=== PATIENT | female | born 1940 | race Caucasian/White ===

== ENCOUNTER 2017-10-30 08:56 | Inpatient (IN) | payer OTHER ==
--- NOTE | 2017-10-30 09:02 | PDOC ---
History of Present Illness - General Chief Complaint: Cold Symptoms Stated Complaint: weak Time Seen by Provider: 10/30/17 09:02 History Source: Patient, EMS (Patient brought in by EMS after feeling weak , feverish and falling down of a small stepstool while arranging Mine decorations yesterday) Exam Limitations: No Limitations - History of Present Illness Timing/Duration: 24 hours Severity: moderate, severe Associated Symptoms: reports: shortness of breath, weakness Past History - Travel Traveled outside of the country in the last 30 days: No Close contact w/someone who was outside of country & ill: No - Past Medical History Allergies/Adverse Reactions: Allergies Allergy/AdvReac Type Severity Reaction Status Date / Time No Known Allergies Allergy Verified 10/30/17 08:59 Home Medications: Ambulatory Orders Enalapril/Hydrochlorothiazide [Vaseretic 10-25 mg Tablet] 1 each PO DAILY HTN: Yes - Surgical History Cholecystectomy: Yes Orthopedic Surgery: Yes (Bilateral hips replaced) - Suicide/Smoking/Psychosocial Hx Smoking History: Never smoked Hx Alcohol Use: No Review of Systems - Review of Systems Able to Perform ROS?: Yes Is the patient limited Slovenian proficient: Yes Constitutional: Yes: See HPI, Fever, Weakness HEENTM: No: Symptoms Reported, See HPI, Eye Pain, Blurred Vision, Tearing, Recent change in vision, Double Vision, Cataracts, Ear Pain, Ocular Prothesis, Ear Discharge, Nose Pain, Nose Congestion, Tinnitus, Nose Bleeding, Hearing Loss , Throat Pain, Throat Swelling, Mouth Pain, Dental Problems, Difficulty Swallowing, Mouth Swelling, Other Respiratory: No: Symptoms reported, See HPI, Cough, Orthopnea, Shortness of Breath, SOB with Exertion, SOB at Rest, Stridor, Wheezing, Productive cough, Hemoptysis, Other Cardiac (ROS): No: Symptoms Reported, See HPI, Chest Pain, Edema, Irregular Heart Rate, Lightheadedness, Palpitations, Syncope, Chest Tightness, Other ABD/GI: No: Symptoms Reported, See HPI, Abdominal Distended, Abd. Pain w/ defecation, Blood Streaked Bowels, Constipated, Diarrhea, Difficulty Swallowing , Nausea, Poor Appetite, Poor Fluid Intake, Rectal Bleeding, Vomiting, Indigestion, Abdominal cramping, Tarry Stools, Other Musculoskeletal: Yes: Symptoms Reported, See HPI, Other (Pain in the groin at passive and active motion of left leg) Integumentary: No: Symptoms Reported, See HPI, Bruising, Change in Color, Change in Hair/Nails, Dryness, Erythema, Flushing, Lesions, Lumps, Pallor, Pruritus, Rash, Sweating, Other Psychiatric: No: Anxiety, Depression, Frequent Crying, Stressors, Sleep Pattern Change, Emotional Problems, Mood Swings, Change in Appetite, Other Endocrine: No: Symptoms Reported, See HPI, Excessive Sweating, Flushing, Intolerance to Cold, Intolerance to Heat, Increased Hunger, Increased Thirst, Increased Urine, Unexplained Weight Gain, Unexplained Weight Loss, Change in Weight, Other All Other Systems: Reviewed and Negative *Physical Exam - Physical Exam General Appearance: Yes: Nourished, Appropriately Dressed, Moderate Distress, Thin HEENT: positive: [place] Neck: positive: Trachea midline, Supple Respiratory/Chest: positive: Lungs Clear Cardiovascular: positive: Regular Rhythm Gastrointestinal/Abdominal: positive: Normal Bowel Sounds, Soft Lymphatic: negative: Adenopathy Extremity: positive: Normal Capillary Refill, Other (Extreme tenderness at attempts of rotating , elevating right hip) Integumentary: positive: Normal Color Neurologic: positive: Fully Oriented, Alert, Normal Mood/Affect Heart Score/ECG Review - Electrocardiogram EKG: Non specific repolarization disturbance - Age Age: >/= 65 - Risk Factors Risk Factors Heart Score: Yes Hx Hypertension Based on the list above the patient has:: 1-2 risk factors - ECG Intrepretation Rhythm: Regular Rhythm - Stilwell Stilwell: Normal - P and DC Prominent R with upright T in V1 (true posterior FL): No Delta Wave(s) Present: No WPW: No ED Treatment Course - LABORATORY CBC & Chemistry Diagram: 10/30/17 09:10 10/30/17 09:10 Medical Decision Making - Critical Care Time Total Critical Care Time (minutes): 30 Critical Care Statement: The care of this patient involved high complexity decision making to prevent further life threatening deterioration of the patient 's condition and/or to evaluate & treat vital organ system(s) failure or risk of failure. - Medical Decision Making Patient seen immediately from arrival, blood, X rays , medications ordered Working diagnosis : sepsis of unknown origin : infected right prosthetic hip, vs urinary infection 10/30/17 11:19 *DC/Admit/Observation/Transfer Diagnosis at time of Disposition: Sepsis Qualifiers: Sepsis type: sepsis due to unspecified organism Qualified Code(s): A41.9 - Sepsis, unspecified organism - Discharge Dispostion Condition at time of disposition: Guarded Admit: Yes - Referrals Referrals: Latrell Torres MD [Primary Care Provider] - - Patient Instructions - Post Discharge Activity
[2017-10-30 09:06] VITALS: BMI 29.2
[2017-10-30] MEDS ORDERED: SODIUM CHLORIDE 1,000 ML IV STA ×2 (09:11→10:44)
[2017-10-30] MEDS ORDERED: ACETAMINOPHEN 500 MG TABLET (FP) PO ONE (09:11)
[2017-10-30 09:24] LABS: MCH 32.1 pg (25.7-33.7); MCHC 34.4 g/dl (32.0-36.0); MEAN CELL VOLUME 93.3 fl (80-96); MEAN PLT VOLUME 9.2 fl (7.5-11.1); PLATELET COUNT 182 K/MM3 (134-434); RDW 11.9 % (11.6-15.6); WHITE BLOOD COUNT 25.4 K/mm3 (4.0-10.8)
[2017-10-30 09:39] LABS: INR 1.24 (0.82-1.09); PROTHROMBIN TIME (PATIENT) 13.8 SEC (10.2-13.0)
[2017-10-30 09:53] LABS: PLATELET ESTIMATE ADEQUATE
[2017-10-30 11:23] LABS: PH,URINE 7.5 (4.5-8); URINE APPEARANCE Clear; URINE BILIRUBIN Negative (NEGATIVE); URINE GLUCOSE (UA) Negative (NEGATIVE); URINE KETONE Negative (NEGATIVE); URINE NITRITE Negative (NEGATIVE); URINE UROBILINOGEN 0.2 (0.2-1.0)
[2017-10-30 11:25] LABS: URINE BLOOD Trace-intact (NEGATIVE); URINE COLOR YELLOW; URINE LEUK ESTERASE TRACE (NEGATIVE); URINE PROTEIN 1+ (NEGATIVE)
[2017-10-30] MEDS ORDERED: PIPERACILLIN/TAZOBACTAM 3.375 GM VIAL IVPB ONE (11:32)
[2017-10-30 11:47] LABS: ALBUMIN 3.3 g/dl (3.4-5.0); ALK PHOS 108 U/L (45-117); ANION GAP 11 (8-16); BILIRUBIN,TOTAL 1.5 mg/dL (0.2-1.0); CALCIUM 8.1 mg/dL (8.5-10.1); CO2 25 mmol/L (21-32); CREATININE 0.9 mg/dL (0.55-1.02); GLUCOSE,RANDOM 122 mg/dL (74-106); SGOT/AST 23 U/L (15-37); SGPT/ALT 22 U/L (12-78); TOT PROT 6.9 g/dl (6.4-8.2)
[2017-10-30] MEDS ORDERED: PIPERACIL/TAZOB 3.375 GM 3.375 GM/50 ML PREMIX IVPB ONE (12:00)
[2017-10-30 12:23] LABS: URINE BACTERIA FEW /hpf (NEGATIVE); URINE RBC 0-3 /hpf (0-3); URINE WBC 0-3 (0-5)
[2017-10-30] MEDS ORDERED: VANCOMYCIN 1,000 MG in DEXTROSE 5%-WATER - 250 ML IVPB ONE (13:00)
[2017-10-30] MEDS ORDERED: VANCOMYCIN 1,000 MG VIAL (RESTRICTED TO ID ONLY) ONE (13:04)
[2017-10-30 13:07] LABS: C-REACTIVE PROTEIN 7.4 MG/DL (0.00-0.3)
[2017-10-30] MEDS ORDERED: POTASSIUM CHLORIDE TABS 20 MEQ TABLET.ER (FP) PO ONE ×2 (13:13→13:30)
[2017-10-30] MEDS ORDERED: SODIUM CHLORIDE 0.9%/KCL 20 MEQ/1,000 ML INFUS.BAG IV SCH (13:15)
[2017-10-30] MEDS ORDERED: SODIUM CHLORIDE 1,000 ML IV SCH (13:15)
[2017-10-30 13:43] LABS: MAGNESIUM 1.8 mg/dL (1.8-2.4)
[2017-10-30] MEDS ORDERED: morphine CARPU-JECT 2 MG/1 ML DISP.SYRIN ONE (15:48)
[2017-10-30] MEDS ORDERED: morphine CARPU-JECT 8 MG/1 ML DISP.SYRIN IVPUSH ONE (15:54)
--- NOTE | 2017-10-30 16:53 | PN ---
Progress Note (short form) - Note Progress Note: 77 yo F pt seen and examined. She is c/o 1 day of severe right hip pain. She jumped down off a low stool yesterday, no other recent trauma. No serious recent illnesses or infections. She had b/l THR by Dr Gallagher 10 years ago. No problems with the hips. PE No signs of infection or acute trauma, no bruising, no swelling RLE is not shortened or rotated. No signs of cellulitis or infection. RLE is NVI Good ROM and Nl sensation throughput the RLE, at the knee, ankle, foot, toes No Lumbosacral symptoms Right hip and anterior groin are very painful with any motion, including flexion, int/ext rotation. No clinical signs of a dislocated hip Labs: WBC= 25.4 ESR = 30 UA = + for UTI Xrays Pelvis and both hips, show B/L THR in good position, no signs of periprosthetic loosening , fracture, or dislocation CT Scan Also shows no acute pathology, no prosthetic or periprosthetic problems. Imp 77 year old female pt s/p a minor trauma, with severe right hip/ant groin pain. Differential diagnosis includes hip contusion, pelvic occult fracture, less likely infection. Rec Waiting for labs to come back: Blood Cultures Antibiotics as per PMD Tomorrow P.T. WBAT RLE
[2017-10-30] MEDS: ACETAMINOPHEN 325 MG TABLET (FP) PO PRN ×2 (17:52→22:22)
[2017-10-30] MEDS: PIPERACILLIN/TAZOB 3.375 GM 50 ML IVPB SCH (17:53)
--- NOTE | 2017-10-30 20:58 | HP ---
Admitting History and Physical - Primary Care Physician PCP: Latrell Torres D - Admission Chief Complaint: Generalized Weakness, Fever, R- Hip Pain, R- Groin Pain History of Present Illness: This is a 77 y/o woman with a past medical history HTN. Who presents to the ED with weakness, fever, SOB, right groin/hip pain. Patient reports while decorating her [place] window on Saturday she "jumped down" from her step stool and is not sure if she twisted or pulled her groin muscle, Patient reports "feeling fine", her normal self, Saturday and Saturday besides the groin and hip pain. She reports this morning she felt too "weak" to get OOB. She reports sliding off her bed to crawl to her phone to call her son, to take her to the hospital for an evaluation. Patient denies cough, nasal congestion, dizziness, HOLLAND, CP, AP, N/ V/D, constipation, dysuria. Patient denies recent travel or sick contacts. She reports being vaccinated with the Influenza Vaccine this season. History Source: Patient Limitations to Obtaining History: Other (somewhat forget with time) - Past Medical History Cardiovascular: Yes: HTN ...: No - Past Surgical History Past Surgical History: Yes: Cholecystectomy, Joint Replacement (B/L Hip) - Smoking History Smoking history: Never smoked - Alcohol/Substance Use Hx Alcohol Use: No History of Substance Use: reports: None - Social History Usual Living Arrangement: Yes: Alone, With Child ADL: Independent Occupation: Retired History of Recent Travel: No Home Medications - Allergies Allergies/Adverse Reactions: Allergies Allergy/AdvReac Type Severity Reaction Status Date / Time No Known Allergies Allergy Verified 10/30/17 08:59 - Home Medications Home Medications: Ambulatory Orders Enalapril/Hydrochlorothiazide [Vaseretic 10-25 mg Tablet] 1 each PO DAILY Family Disease History - Family Disease History Family History: Unremarkable Review of Systems - Review of Systems Constitutional: reports: Fever, Malaise, Weakness Eyes: reports: No Symptoms HENT: reports: No Symptoms Neck: reports: No Symptoms Cardiovascular: reports: Shortness of Breath Respiratory: reports: SOB Gastrointestinal: reports: No Symptoms Genitourinary: reports: No Symptoms, Other (rigth groin) Breasts: reports: No Symptoms Reported Musculoskeletal: reports: Joint Pain (right hip) Integumentary: reports: No Symptoms Neurological: reports: Weakness Endocrine: reports: No Symptoms Hematology/Lymphatic: reports: No Symptoms Psychiatric: reports: No Symptoms Pain Intensity: 7 Physical Examination Vital Signs: Vital Signs Temperature 99.1 F 10/30/17 16:56 Pulse Rate 86 10/30/17 16:56 Respiratory Rate 18 10/30/17 20:08 Blood Pressure 126/80 10/30/17 16:56 O2 Sat by Pulse Oximetry (%) 96 10/30/17 16:45 Constitutional: Yes: Calm, Mild Distress, Obese Eyes: Yes: WNL, Conjunctiva Clear, EOM Intact, PERRL HENT: Yes: WNL, Atraumatic, Normocephalic Neck: Yes: WNL, Supple, Trachea Midline Cardiovascular: Yes: WNL, Regular Rate and Rhythm, S1, S2 Labs: CBC, BMP 10/30/17 09:10 10/30/17 09:10 Imaging - Results Chest X-ray: Report Reviewed X-ray: Report Reviewed Cat Scan: Report Reviewed Problem List - Problems (1) Sepsis Code(s): A41.9 - SEPSIS, UNSPECIFIED ORGANISM Qualifiers: Sepsis type: sepsis due to unspecified organism Qualified Code(s): A41.9 - Sepsis, unspecified organism (2) Lactic acid acidosis Code(s): E87.2 - ACIDOSIS (3) Leukocytosis Code(s): D72.829 - ELEVATED WHITE BLOOD CELL COUNT, UNSPECIFIED (4) Weakness generalized Code(s): R53.1 - WEAKNESS (5) Right groin pain Code(s): R10.31 - RIGHT LOWER QUADRANT PAIN (6) Right hip pain Code(s): M25.551 - PAIN IN RIGHT HIP (7) Hypokalemia Code(s): E87.6 - HYPOKALEMIA (8) HTN (hypertension) Code(s): I10 - ESSENTIAL (PRIMARY) HYPERTENSION (9) DVT prophylaxis Code(s): [id number] - Assessment/Plan This is a 77 y/o woman with a PMHx of: HTN. Admitted for Sepsis unknown organism with R- hip and R- groin pain. Plan: 1. ID: Sepsis - SIRS Criteria Met IIII- T Max 102.6, WBC 25.4, LA 2.6, P 135 - qSofa Score 0 - Blood Cultures-pending - Urine Culture-pending - Chest Xray reviewed no infiltrate or effusion - NS Bolus x1 given in ED - Continue IVF- monitor for fluid overload with hx HTN - Zosyn,Tylenol given in ED - ID Following - Vanco x1, Zosyn continued - Monitor vitals - Repeat CBCD, BMP in am 2. Lactic Acidosis - Fluid Bolus - Continue IVF - 2.6~0.8 3. Leukocytosis - Likely infectious vs Inflammatory vs Malignancy - Blood Cultures-pending - Urine Culture-pending - Continue Zosyn - Monitor CBCD 4. Ortho: R-Hip Pain - Likely secondary to hip contusion vs pelvic occult fracture vs infection. - Ortho following - CT Pelvis reviewed- no acute pathology, no prosthetic or periprosthetic problems. - Xray Pelvis B/L Hips reviewed- B/L THR in good position, no signs of periprosthetic loosening, fracture, or dislocation. - Continue Tylenol - PT pending, per ortho recommendation - WBC- 25.4, CRP 7.4 - Fall Precautions 5. Hypertension - Not controlled, likely secondary to pain - Continue home med - Monitor renal function 6. Hypokalemia - Replete with KCL - Continue to monitor BMP 7. FEN - IVF - Replete K, Mg, continue to monitor - Low Na Diet ad ever 8. DVT Prophylaxis - OOB - Heparin SQ Code Status: Full Code Dispo: Requires Inpatient Care Visit type - Emergency Visit Emergency Visit: Yes ED Registration Date: 10/30/17 Care time: The patient presented to the Emergency Department on the above date and was hospitalized for further evaluation of their emergent condition. - New Patient This patient is new to me today: Yes Date on this admission: 10/30/17 - Critical Care Critical Care patient: No
[2017-10-30] MEDS: HEPARIN NA (PORCINE) 5,000 UNITS/ML 1ML VIAL SQ SCH (22:23)
[2017-10-30] MEDS ORDERED: oxyCODONE HCL 5 MG TABLET PO ONE (22:56)
[2017-10-31] MEDS: PIPERACILLIN/TAZOB 3.375 GM 50 ML IVPB SCH ×2 (02:00→09:35)
[2017-10-31] MEDS: ACETAMINOPHEN 325 MG TABLET (FP) PO PRN ×2 (05:29→21:18)
--- NOTE | 2017-10-31 07:27 | PN ---
Progress Note (short form) - Note Progress Note: Ortho Pt seen and examined- right hip pain has improved from yesterday Selected Entries 10/31/17 06:28 Temperature 102.8 F H Pulse Rate 101 H Respiratory 20 Rate Blood Pressure 132/46 Laboratory Tests 10/30/17 10/30/17 10/30/17 09:10 11:16 11:17 WBC 25.4 H Hgb 13.7 Hct 39.7 Plt Count 182 ESR 30 C-Reactive Protein 7.4 H PE- + ttp, equal limb lengths, decr rom secondary to pain nvi Blood and urine cultures pending CT neg for fx, or fluid collection a/p- Sepsis with right hip pain s/p thr ID consult IV abx as per ID f/u cultures OOB PT eval will continue to monitor d/w Dr. Milligan
--- NOTE | 2017-10-31 07:35 | PN ---
Physical Exam: SUBJECTIVE: Patient seen and examined, reports tactile fever and ongoing right hip pain. OBJECTIVE: patient is a 77 y/o female with a past medical history of hypertension. patient was admitted from the emergency department for sepsis secondary to bacteremia . Vital Signs Period Temp Pulse Resp BP Sys/Singh Pulse Ox Last 24 Hr 98.7 F-102.8 F 86-135 16-20 100-154/46-117 90-99 GENERAL: The patient is awake, alert, and fully oriented, in no acute distress. HEAD: Normal with no signs of trauma. EYES: PERRL, extraocular movements intact, sclera anicteric, conjunctiva clear. No ptosis. ENT: Ears normal, nares patent, oropharynx clear without exudates, moist mucous membranes. poor denition, pain to 2nd bicupsid, loose fitting crown noted, slight erythema to gumline NECK: Trachea midline, full range of motion, supple. LUNGS: Breath sounds equal, clear to auscultation bilaterally, no wheezes, no crackles, no accessory muscle use. HEART: Regular rate and rhythm, S1, S2 without murmur, rub or gallop. ABDOMEN: Soft, nontender, nondistended, normoactive bowel sounds, no guarding, no rebound, no hepatosplenomegaly, no masses. EXTREMITIES: 2+ pulses, warm, well-perfused, no edema. RIGHT LOWER EXTREMITY: pain upon flexion and extension of the right hip, no erythema noted, no point tenderness, less than 3 second capillary refill, +3 pedal pulse NEUROLOGICAL: Cranial nerves II through XII grossly intact. Normal speech, gait not observed. PSYCH: Normal mood, normal affect. SKIN: Warm, dry, normal turgor, no rashes or lesions noted, laceration to 3rd left digit, no erythema noted Laboratory Results - last 24 hr CBC WBC 17.1 K/mm3 (4.0-10.8) H D 10/31/17 07:30 RBC 3.57 M/mm3 (3.60-5.2) L 10/31/17 07:30 Hgb 11.9 GM/dl (10.7-15.3) D 10/31/17 07:30 Hct 33.9 % (32.4-45.2) 10/31/17 07:30 MCV 95.0 fl (80-96) 10/31/17 07:30 MCH 33.4 pg (25.7-33.7) 10/31/17 07:30 MCHC 35.2 g/dl (32.0-36.0) 10/31/17 07:30 RDW 12.1 % (11.6-15.6) 10/31/17 07:30 Plt Count 127 K/MM3 (134-434) L D 10/31/17 07:30 MPV 9.7 fl (7.5-11.1) 10/31/17 07:30 Neutrophils % 94.2 % (42.8-82.8) H 10/31/17 07:30 Neutrophils % (Manual) 88.0 % (42.8-82.8) H 10/30/17 09:10 Band Neutrophils % 4.0 % (0-10) 10/30/17 09:10 Lymphocytes % 2.5 % (8-40) L 10/31/17 07:30 Lymphocytes % (Manual) 4.0 % (8-40) L 10/30/17 09:10 Monocytes % 3.3 % (3.8-10.2) L 10/31/17 07:30 Monocytes % (Manual) 2 % (3.8-10.2) L 10/30/17 09:10 Eosinophils % 0.0 % (0-4.5) 10/31/17 07:30 Basophils % 0.0 % (0-2.0) 10/31/17 07:30 Basophils % (Manual) 2.0 % (0-2.0) 10/30/17 09:10 Platelet Estimate Adequate 10/30/17 09:10 ESR 30 mm/hr (0-30) 10/30/17 11:16 CMP Sodium 131 mmol/L (136-145) L 10/31/17 07:30 Potassium 3.0 mmol/L (3.5-5.1) L 10/31/17 07:30 Chloride 103 mmol/L (98-107) 10/31/17 07:30 Carbon Dioxide 22 mmol/L (22-28) 10/31/17 07:30 Anion Gap 6 (8-16) L 10/31/17 07:30 BUN 12 mg/dl (7-18) 10/31/17 07:30 Creatinine 0.7 mg/dl (0.6-1.3) 10/31/17 07:30 Creat Clearance w eGFR > 60 (>60) 10/31/17 07:30 Random Glucose 103 mg/dl (74-106) 10/31/17 07:30 Lactic Acid 0.8 mmol/L (0.4-2.0) 10/30/17 11:32 Calcium 7.5 mg/dl (8.4-10.2) L 10/31/17 07:30 Magnesium Cancelled 10/30/17 13:35 Total Bilirubin 1.2 mg/dl (0.2-1.0) H 10/31/17 07:30 AST 46 U/L (10-42) H 10/31/17 07:30 ALT 29 U/L (10-40) 10/31/17 07:30 Alkaline Phosphatase 64 U/L (32-92) 10/31/17 07:30 C-Reactive Protein 7.4 MG/DL (0.00-0.3) H 10/30/17 11:17 Total Protein 5.0 g/dl (6.4-8.3) L 10/31/17 07:30 Albumin 2.7 g/dl (3.5-5.0) L 10/31/17 07:30 Generic Name Dose Route Start Last Admin Trade Name Anna PRN Reason Stop Dose Admin Acetaminophen 650 mg 10/30/17 13:03 10/31/17 05:29 Tylenol - PO 650 mg Q4H PRN Administration FEVER OR PAIN Heparin Sodium (Porcine) 5,000 unit 10/30/17 22:00 10/30/17 22:23 Heparin - SQ 5,000 unit BID DENY Administration Piperacillin/Tazobactam/Dextrose 50 mls @ 100 mls/hr 10/30/17 18:00 10/31/17 02:00 Zosyn 3.375gm Ivpb (Premix) IVPB 100 mls/hr Q8H-IV DENY Administration Protocol Potassium Chloride/Sodium Chloride 20 meq in 1,000 mls @ 100 mls/hr 10/30/17 13:15 10/30/17 13:22 Ns+20 Meq Kcl - IV 100 mls/hr ASDIR DENY Administration Ranitidine HCl 150 mg 10/31/17 10:00 Zantac - PO DAILY DENY Microbiology 10/30/17 09:05 Blood - Peripheral Venous Blood Culture - Preliminary Pending Organism 10/30/17 09:10 Blood - Peripheral Venous Blood Culture - Preliminary Pending Organism 10/30/17 Unknown Nasopharyngeal Swab Influenza Types A,B Antigen (SARAH) - Final 10/30/17 Unknown Nasopharyngeal Swab - Final IMAGING CT of pelvis: no fracture no dislocation noted, thickening and attenuation of right hip, ? joint effusion chest xray: no acute pathology ASSESSMENT/PLAN: 1. ID: Sepsis - likely secondary to skin source vs poor denition - + blood cultures x 2 repeat cultures sent, pending urine culture, pending echo - continue zosyn and vanc (10/30 -) - Dr Lazcano, ID consulted 2. MS right hip pain - evaluated by ortho, less likely septic joint as per Dr Milligan - pt eval pending - continue prn pain medication 3. cardiovascular hypertension - b/p at goal, restart enalapril tomm, hold hctz in setting of sepsis f/e/n - low sodium diet ppx - zantac - scd - heparin dispo: requires inpatient admission Visit type - Emergency Visit Emergency Visit: Yes ED Registration Date: 10/30/17 Care time: The patient presented to the Emergency Department on the above date and was hospitalized for further evaluation of their emergent condition. - New Patient This patient is new to me today: Yes Date on this admission: 10/31/17 - Critical Care Critical Care patient: No - Discharge Referral Referred to [facility] Med P.C.: No
[2017-10-31] MEDS ORDERED: SODIUM CHLORIDE 0.9%/KCL 20 MEQ/1,000 ML INFUS.BAG IV SCH (09:30)
[2017-10-31 09:32] LABS: MCH 33.4 pg (25.7-33.7); MCHC 35.2 g/dl (32.0-36.0); MEAN PLT VOLUME 9.7 fl (7.5-11.1); NEUT % 94.2 % (42.8-82.8); PLATELET COUNT 127 K/MM3 (134-434); RDW 12.1 % (11.6-15.6); WHITE BLOOD COUNT 17.1 K/mm3 (4.0-10.8)
[2017-10-31] MEDS: HEPARIN NA (PORCINE) 5,000 UNITS/ML 1ML VIAL SQ SCH ×2 (09:34→21:08)
[2017-10-31] MEDS: RANITIDINE HCL 150 MG TABLET (FP) PO SCH (09:35)
[2017-10-31] MEDS: VANCOMYCIN 1 GRAM (PRE-DOCKED) 1,000 MG/250 ML BAG IVPB SCH ×2 (09:35→20:50)
[2017-10-31 09:37] LABS: INR 1.62 (0.82-1.09)
[2017-10-31 09:42] LABS: ALBUMIN 2.7 g/dl (3.5-5.0); ALK PHOS 64 U/L (32-92); ANION GAP 6 (8-16); BILIRUBIN,TOTAL 1.2 mg/dl (0.2-1.0); CALCIUM 7.5 mg/dl (8.4-10.2); CO2 22 mmol/L (22-28); CREATININE 0.7 mg/dl (0.6-1.3); GLUCOSE,RANDOM 103 mg/dl (74-106); SGOT/AST 46 U/L (10-42); SGPT/ALT 29 U/L (10-40)
[2017-10-31] MEDS ORDERED: POTASSIUM CHLORIDE TABS 20 MEQ TABLET.ER (FP) PO ONE (10:25)
--- NOTE | 2017-10-31 10:36 | PN ---
Progress Note (short form) - Note Progress Note: ID Consult dictated Staph bacteremia/ sepsis, probable skin source Fever/ leukocytosis Await BC result Repeat BC x2 Pending c/s empiric vancomycin/ zosyn
[2017-10-31] MEDS ORDERED: morphine CARPU-JECT 2 MG/1 ML DISP.SYRIN IVPUSH ONE (12:15)
[2017-10-31] MEDS: SODIUM CHLORIDE 0.9%/KCL 20 MEQ/1,000 ML INFUS.BAG IV SCH (12:25)
--- NOTE | 2017-10-31 12:43 | EKG ---
Test Reason : Blood Pressure : / mmHG Vent. Rate : 095 BPM Atrial Rate : 095 BPM P-R Int : 164 ms QRS Dur : 080 ms QT Int : 376 ms P-R-T Axes : 060 035 055 degrees QTc Int : 472 ms NORMAL SINUS RHYTHM NONSPECIFIC ST AND T WAVE ABNORMALITY WHEN COMPARED WITH ECG OF 10-NOV-2013 20:37, NONSPECIFIC ST ABNORMALITY are now present in INFERIOR LEADS Confirmed by LEV ATKINSON, FIGUREOA ([id number]) on 10/31/2017 12:43:25 PM Referred By: OMAR SWENSON Confirmed By:FIGUEROA OHARA MD
[2017-10-31] MEDS ORDERED: MAGNESIUM SULFATE 2 GM in SODIUM CHLORIDE 100 ML IVPB ONE (13:34)
[2017-10-31] MEDS ORDERED: MAGNESIUM SULF 50% (8.12 MEQ/2 ML-1 GM VIAL) IVPB ONE (14:00)
[2017-10-31] MEDS ORDERED: ACETAMINOPHEN 1000 MG/100 ML VIAL (NON FORMULARY) IVPB ONE (15:00)
--- NOTE | 2017-10-31 16:41 | CONS ---
INFECTIOUS DISEASE CONSULTATION DATE OF CONSULTATION: DATE OF DICTATION: 10/31/2017 REASON FOR CONSULTATION: The patient is a 77-year-old female who is evaluated for fever. HISTORY OF PRESENT ILLNESS: She was admitted to the hospital on October 30, 2017, with a 1-day history of generalized weakness, fever, and mechanical fall. Patient was decorating her house when she fell from a stool. She had sustained right hip trauma. She complained of worsening generalized weakness, subjective fever, and a pulling sensation in the right groin area. She presented to the hospital where her temperature was noted to be 102.8, white blood cell count 25,000. She was empirically treated with Zosyn. Blood cultures this morning are now positive for gram-positive cocci in clusters in all 4 bottles. Of note, the patient sustained a laceration to her left index finger approximately 1 week ago while she was using a knife. She states it did not become infected. No purulent drainage was noted. She did not have any fever at that time. The patient is status post bilateral total hip replacements dating back 7-10 years ago. The patient denies any chest pain, shortness of breath, cough, or sputum production. No dysuria or hematuria. No vomiting or diarrhea. No other infected skin wounds noted. PAST MEDICAL HISTORY: Positive for hypertension. PAST SURGICAL HISTORY: Cholecystectomy and bilateral total hip replacements. ALLERGIES: No known allergies. MEDICATIONS: Vaseretic. SOCIAL HISTORY: Lives at home with family members. SYSTEMS REVIEW: Neurologic: No loss of consciousness, seizure activity, or focal weakness. Cardiac: Negative chest pain or palpitations. Respiratory: Negative cough or sputum production. Gastrointestinal: Negative vomiting. No diarrhea. Genitourinary: Negative for urinary tract infection. LABORATORY DATA: White count 25.4 with a left shift, hematocrit 39.7, platelets 182. BUN 14, creatinine 0.9. Blood cultures: Four out of 4 bottles gram-positive cocci in clusters. Lactic acid 2.6. Liver enzymes normal. Influenza swab negative. Urinalysis: White cells 0-3. Chest x-ray negative for acute infiltrate. PHYSICAL EXAMINATION: General: The patient is awake and alert, in no acute distress. Vital Signs: T-max 102.8; blood pressure 132/48; pulse 101, regular; respirations 20 per minute. HEENT: Sclerae anicteric. No conjunctival hemorrhages. Heart: Sounds S1, S2. No murmur. Lungs: Clear. Abdomen: Soft. No tenderness elicited. No mass, rebound. No rigidity. Extremities: Negative for edema. No erythema present over the hip sites bilaterally. There is a healing laceration present on the left index finger. There is slight erythema and swelling surrounding the area. No purulent drainage is noted. IMPRESSION: 1. Staphylococcal bacteremia/sepsis, probable skin source. 2. High-grade fever, leukocytosis. 3. Lactic acidosis. 4. Right groin pain. Suspect skin source, possibly left index finger laceration as etiology of staphylococcal bacteremia. We will repeat blood cultures, continue vancomycin 1 g IV piggyback every 12 hours. We will also continue Zosyn pending cultures. Echocardiogram. Further recommendations pending culture results. Will follow. Thank you for the kind referral. SHERYL WONG M.D. CAT/[id number]
[2017-10-31] MEDS: PIPERACILLIN/TAZOB 3.375 GM 3.375 GM/50 ML BAG IVPB SCH (18:04)
[2017-10-31 18:31] LABS: ANION GAP 5 (8-16); CALCIUM 7.5 mg/dl (8.4-10.2); CO2 20 mmol/L (22-28); CREATININE 0.7 mg/dl (0.6-1.3); GLUCOSE,RANDOM 129 mg/dl (74-106)
[2017-10-31] MEDS: oxyCODONE HCL 5 MG TABLET PO PRN (21:17)
[2017-11-01] MEDS: PIPERACILLIN/TAZOB 3.375 GM 3.375 GM/50 ML BAG IVPB SCH ×3 (01:54→18:14)
[2017-11-01] MEDS: VANCOMYCIN 1 GRAM (PRE-DOCKED) 1,000 MG/250 ML BAG IVPB SCH ×2 (08:29→21:10)
[2017-11-01] MEDS: oxyCODONE HCL 5 MG TABLET PO PRN ×2 (08:32→13:32)
[2017-11-01 08:37] LABS: ANION GAP 7 (8-16); CALCIUM 7.8 mg/dl (8.4-10.2); CO2 22 mmol/L (22-28); CREATININE 0.7 mg/dl (0.6-1.3); GLUCOSE,RANDOM 92 mg/dl (74-106); PHOSPHOROUS 2.6 mg/dl (2.5-4.6)
[2017-11-01 09:20] LABS: BASO % 0.2 % (0-2.0); EOS % 0.3 % (0-4.5); MCH 32.3 pg (25.7-33.7); MCHC 34.2 g/dl (32.0-36.0); MEAN CELL VOLUME 94.2 fl (80-96); MEAN PLT VOLUME 10.3 fl (7.5-11.1); NEUT % 88.6 % (42.8-82.8); PLATELET COUNT 117 K/MM3 (134-434); RDW 12.5 % (11.6-15.6); WHITE BLOOD COUNT 14.7 K/mm3 (4.0-10.8)
[2017-11-01] MEDS: ENALAPRIL MALEATE 10 MG TABLET (FP) PO SCH (09:32)
[2017-11-01] MEDS: SODIUM CHLORIDE 0.9%/KCL 20 MEQ/1,000 ML INFUS.BAG IV SCH (09:32)
[2017-11-01] MEDS: RANITIDINE HCL 150 MG TABLET (FP) PO SCH (09:33)
[2017-11-01] MEDS: HEPARIN NA (PORCINE) 5,000 UNITS/ML 1ML VIAL SQ SCH ×2 (09:33→21:11)
--- NOTE | 2017-11-01 09:56 | PN ---
Progress Note (short form) - Note Progress Note: Ortho Pt seen and examined- improving Selected Entries 11/01/17 08:33 Temperature 98.8 F Pulse Rate 94 H Respiratory 18 Rate Blood Pressure 134/51 Laboratory Tests 11/01/17 07:30 WBC 14.7 H Hgb 11.9 Hct 34.9 Plt Count 117 L PE- + ttp, equal limb lengths, decr rom secondary to pain nvi Blood and urine cultures pending CT neg for fx, or fluid collection a/p- Sepsis with right hip pain s/p thr IV abx as per ID f/u cultures OOB PT eval, wbat will follow d/w Dr. Milligan
--- NOTE | 2017-11-01 10:16 | PN ---
Progress Note, Physician History of Present Illness: Awake, alert Febrile overnight 102.8 C/O R hip pain No c/o fever/ chills Repeat BC + GPCCL Awaiting identification of blood isolate - Current Medication List Current Medications: Active Medications Acetaminophen (Tylenol -) 650 mg PO Q4H PRN PRN Reason: FEVER OR PAIN LEVEL 1-5 Last Admin: 10/31/17 21:18 Dose: 650 mg Enalapril Maleate (Vasotec -) 10 mg PO DAILY [facility] Last Admin: 11/01/17 09:32 Dose: 10 mg Heparin Sodium (Porcine) (Heparin -) 5,000 unit SQ BID [facility] Last Admin: 11/01/17 09:33 Dose: 5,000 unit Vancomycin HCl (Vancomycin (Pre-Docked)) 1,000 mg in 250 mls @ 166.667 mls/hr IVPB Q12H [facility] Last Admin: 11/01/17 08:29 Dose: 166.667 mls/hr Potassium Chloride/Sodium Chloride (Ns+20 Meq Kcl -) 20 meq in 1,000 mls @ 75 mls/hr IV ASDIR [facility] Last Admin: 11/01/17 09:32 Dose: 75 mls/hr Piperacillin Sod/Tazobactam Sod (Zosyn 3.375gm Ivpb (Pre-Docked)) 3.375 gm in 50 mls @ 100 mls/hr IVPB Q8H-IV DENY PRN Reason: Protocol Last Admin: 11/01/17 09:33 Dose: 100 mls/hr Oxycodone HCl (Roxicodone -) 5 mg PO Q6H PRN PRN Reason: PAIN LEVEL 6-10 Last Admin: 11/01/17 08:32 Dose: 5 mg Ranitidine HCl (Zantac -) 150 mg PO DAILY [facility] Last Admin: 11/01/17 09:33 Dose: 150 mg - Objective Vital Signs: Vital Signs Temperature 98.8 F 11/01/17 08:33 Pulse Rate 94 H 11/01/17 08:33 Respiratory Rate 18 11/01/17 08:33 Blood Pressure 134/51 11/01/17 08:33 O2 Sat by Pulse Oximetry (%) 94 L 10/31/17 21:00 Constitutional: Yes: No Distress Cardiovascular: Yes: Regular Rate and Rhythm, S1, S2, Other (no murmur) Respiratory: Yes: CTA Bilaterally Gastrointestinal: Yes: Normal Bowel Sounds, Soft Extremities: Yes: Other (no R hip erythema/ tenderness) Edema: No Labs: CBC, BMP 11/01/17 07:30 11/01/17 07:30 INR, PTT INR 1.62 (0.82-1.09) H D 10/31/17 07:30 Assessment/Plan Staph bacteremia/ sepsis R/O endocarditis Fever/ leukocytosis Lactic acidosis- resolved Await identification of blood isolate Check echocardiogram
--- NOTE | 2017-11-01 10:19 | PN ---
Physical Exam: SUBJECTIVE: Patient seen and examined, reports ongoing pain to the right hip, tmax of 102.7 OBJECTIVE: patient is a 77 y/o female with a past medical history of hypertension. patient was admitted from the emergency department for sepsis secondary to bacteremia Vital Signs Period Temp Pulse Resp BP Sys/Singh Pulse Ox Last 24 Hr 98.8 F-99.8 F 82-94 18-20 105-134/50-51 94 GENERAL: The patient is awake, alert, and fully oriented, in no acute distress. HEAD: Normal with no signs of trauma. EYES: PERRL, extraocular movements intact, sclera anicteric, conjunctiva clear. No ptosis. ENT: Ears normal, nares patent, oropharynx clear without exudates, moist mucous membranes. poor dentition, pain to 2nd bicupsid, loose fitting crown noted, slight erythema to gumline NECK: Trachea midline, full range of motion, supple. LUNGS: Breath sounds equal, clear to auscultation bilaterally, no wheezes, no crackles, no accessory muscle use. HEART: Regular rate and rhythm, S1, S2 without murmur, rub or gallop. ABDOMEN: Soft, nontender, nondistended, normoactive bowel sounds, no guarding, no rebound, no hepatosplenomegaly, no masses. EXTREMITIES: 2+ pulses, warm, well-perfused, no edema. RIGHT LOWER EXTREMITY: pain upon flexion and extension of the right hip, no erythema noted, no point tenderness, less than 3 second capillary refill, +3 pedal pulse NEUROLOGICAL: Cranial nerves II through XII grossly intact. Normal speech, gait not observed. PSYCH: Normal mood, normal affect. SKIN: Warm, dry, normal turgor, no rashes or lesions noted, laceration to 3rd left digit, no erythema noted Laboratory Results - last 24 hr 10/31/17 10/31/17 11/01/17 07:30 18:00 07:30 WBC 14.7 H RBC 3.70 Hgb 11.9 Hct 34.9 MCV 94.2 MCH 32.3 MCHC 34.2 RDW 12.5 Plt Count 117 L MPV 10.3 Neutrophils % 88.6 H Lymphocytes % 5.7 L D Monocytes % 5.2 Eosinophils % 0.3 D Basophils % 0.2 D Sodium 128 L Potassium 3.6 Chloride 103 Carbon Dioxide 20 L Anion Gap 5 L BUN 11 Creatinine 0.7 Random Glucose 129 H D Calcium 7.5 L Phosphorus Magnesium 1.6 L 11/01/17 07:30 WBC RBC Hgb Hct MCV MCH MCHC RDW Plt Count MPV Neutrophils % Lymphocytes % Monocytes % Eosinophils % Basophils % Sodium 132 L Potassium 3.7 Chloride 103 Carbon Dioxide 22 Anion Gap 7 L BUN 13 Creatinine 0.7 Random Glucose 92 D Calcium 7.8 L Phosphorus 2.6 Magnesium 2.0 D Active Medications Generic Name Dose Route Start Last Admin Trade Name Freq PRN Reason Stop Dose Admin Acetaminophen 650 mg 10/30/17 13:03 10/31/17 21:18 Tylenol - PO 650 mg Q4H PRN Administration FEVER OR PAIN LEVEL 1-5 Enalapril Maleate 10 mg 11/01/17 10:00 11/01/17 09:32 Vasotec - PO 10 mg DAILY DENY Administration Heparin Sodium (Porcine) 5,000 unit 10/30/17 22:00 11/01/17 09:33 Heparin - SQ 5,000 unit BID DENY Administration Vancomycin HCl 1,000 mg in 250 mls @ 166.667 mls/hr 10/31/17 09:00 11/01/17 08:29 Vancomycin (Pre-Docked) IVPB 166.667 mls/hr Q12H DENY Administration Potassium Chloride/Sodium Chloride 20 meq in 1,000 mls @ 75 mls/hr 10/31/17 10 :00 11/01/17 09:32 Ns+20 Meq Kcl - IV 75 mls/hr ASDIR DENY Administration Piperacillin Sod/Tazobactam Sod 3.375 gm in 50 mls @ 100 mls/hr 10/31/17 18: 00 11/01/17 09:33 Zosyn 3.375gm Ivpb (Pre-Docked) IVPB 100 mls/hr Q8H-IV DENY Administration Protocol Oxycodone HCl 5 mg 10/31/17 12:01 11/01/17 08:32 Roxicodone - PO 5 mg Q6H PRN Administration PAIN LEVEL 6-10 Ranitidine HCl 150 mg 10/31/17 10:00 11/01/17 09:33 Zantac - PO 150 mg DAILY DENY Administration Microbiology 10/30/17 09:05 Blood - Peripheral Venous Blood Culture - Preliminary Presumptive Mssa (Pbp2a Neg) 10/30/17 09:10 Blood - Peripheral Venous Blood Culture - Preliminary Presumptive Mssa (Pbp2a Neg) 10/31/17 09:30 Blood - Peripheral Venous Blood Culture - Preliminary Pending Organism 10/31/17 09:10 Blood - Peripheral Venous Blood Culture - Preliminary Pending Organism 10/30/17 11:17 Urine - Urine Clean Catch Urine Culture - Final NO GROWTH OBTAINED 10/30/17 Unknown Nasopharyngeal Swab Influenza Types A,B Antigen (SARAH) - Final, negative 10/30/17 Unknown Nasopharyngeal Swab - Final, negative IMAGING CT of pelvis: no fracture no dislocation noted, thickening and attenuation of right hip, ? joint effusion chest xray: no acute pathology ASSESSMENT/PLAN: 1. ID: Sepsis - presum mssa bacteremia x 1, repeat cultures prelim +, likely secondary to skin source vs poor denition - continue zosyn and vanc (10/30 -) vanc through pending - Dr Lazcano, ID consulted 2. MS right hip pain - evaluated by ortho, less likely septic joint as per Dr Milligan - pt eval pending - continue prn pain medication 3. cardiovascular hypertension - b/p at goal, restart enalapril tomm, hold hctz in setting of sepsis bacterial endocarditis - prelimin + mssa cultures x 2, echo lvef 70-75%, no large vegations noted, can not rule out smaller vegetations, high clinical concerns for bacterial endocarditis case discussed with Dr Baltazar, pending SOPHIA for saturday, 11/04 f/e/n - low sodium diet ppx - zantac - scd - heparin dispo: requires inpatient admission Visit type - Emergency Visit Emergency Visit: Yes ED Registration Date: 10/30/17 Care time: The patient presented to the Emergency Department on the above date and was hospitalized for further evaluation of their emergent condition. - New Patient This patient is new to me today: No - Critical Care Critical Care patient: No - Discharge Referral Referred to [facility] Med P.C.: No
--- NOTE | 2017-11-01 11:13 | CON.CARD ---
Consult Consult Specialty:: Cardiology Referred by:: Hospitalist Medicine Reason for Consultation:: MSSA bacteremia, r/o endocarditis - History of Present Illness Chief Complaint: Fever, weakness, fatigue History of Present Illness: This is a 77 y/o woman with a past medical history HTN initially presented with weakness, fever, SOB, right groin/hip pain, found to have leukocytosis and persistent MSSA bacteremia likely skin source, TTE inconclusive. She denies chest pain, dyspnea, near or true syncope, palpitations, orthopnea, PND or LE edema. - History Source History Provided By: Patient Limitations to Obtaining History: No Limitations - Past Medical History Cardio/Vascular: Yes: HTN ...: No - Past Surgical History Past Surgical History: Yes: Cholecystectomy, Joint Replacement (B/L Hip) - Alcohol/Substance Use Hx Alcohol Use: No History of Substance Use: reports: None - Smoking History Smoking history: Never smoked - Social History ADL: Independent Occupation: Retired History of Recent Travel: No Home Medications - Allergies Allergies/Adverse Reactions: Allergies Allergy/AdvReac Type Severity Reaction Status Date / Time No Known Allergies Allergy Verified 10/30/17 08:59 - Home Medications Home Medications: Ambulatory Orders Enalapril/Hydrochlorothiazide [Vaseretic 10-25 mg Tablet] 1 each PO DAILY Review of Systems - Review of Systems Constitutional: reports: Fever, Lethargy, Weakness Vital Signs: Vital Signs Temperature 98.8 F 11/01/17 08:33 Pulse Rate 94 H 11/01/17 08:33 Respiratory Rate 18 11/01/17 08:33 Blood Pressure 134/51 11/01/17 08:33 O2 Sat by Pulse Oximetry (%) 94 L 10/31/17 21:00 Constitutional: Yes: No Distress, Calm Neck: Yes: Supple Respiratory: Yes: Regular, Diminished Gastrointestinal: Yes: Normal Bowel Sounds, Soft Cardiovascular: Yes: Regular Rate and Rhythm JVD: No Carotid Bruit: No Heart Sounds: Yes: S1, S2 Murmur: Yes: Systolic Murmur, Grade 1 Edema: No - Other Data Labs, Other Data: CBC, BMP 11/01/17 07:30 11/01/17 07:30 INR, PTT INR 1.62 (0.82-1.09) H D 10/31/17 07:30 NSR @ [address]-T changes Echo: Report Reviewed Ejection Fraction %: LVEF > or = 40 % Imaging - Results Chest X-ray: Report Reviewed (NAD) Problem List - Problems (1) HTN (hypertension) Code(s): I10 - ESSENTIAL (PRIMARY) HYPERTENSION Qualifiers: Hypertension type: essential hypertension Qualified Code(s): I10 - Essential (primary) hypertension (2) Leukocytosis Code(s): D72.829 - ELEVATED WHITE BLOOD CELL COUNT, UNSPECIFIED Qualifiers: Leukocytosis type: unspecified Qualified Code(s): D72.829 - Elevated white blood cell count, unspecified (3) Right hip pain Code(s): M25.551 - PAIN IN RIGHT HIP (4) Sepsis Code(s): A41.9 - SEPSIS, UNSPECIFIED ORGANISM Qualifiers: Sepsis type: sepsis due to unspecified organism Qualified Code(s): A41.9 - Sepsis, unspecified organism (5) Thrombocytopenia Code(s): D69.6 - THROMBOCYTOPENIA, UNSPECIFIED Assessment/Plan 10/31/2017 Echo: Normal LV size and fxn, mild AR, tr-mild TR, Tr TR, can't r/o vegetations 1. Fever/leukocytosis/thrombocytopenia referable to Staph bacteremia/ sepsis, probable skin source 2. HTN/HCVD 3. Right hip pain s/p thr P:1. Abx per C&S, monitor surveillance cultures 2. If bacteremia persists, plan for SOPHIA saturday AM to better exclude vegetations 3. Continue Vasotec 10 qd 4. Thank you for consultative opportunity
[2017-11-01] MEDS ORDERED: ACETAMINOPHEN 1000 MG/100 ML VIAL (NON FORMULARY) IVPB ONE (14:00)
[2017-11-02] MEDS: PIPERACILLIN/TAZOB 3.375 GM 3.375 GM/50 ML BAG IVPB SCH (01:43)
[2017-11-02] MEDS: ACETAMINOPHEN 325 MG TABLET (FP) PO PRN ×2 (05:58→20:10)
[2017-11-02] MEDS: oxyCODONE HCL 5 MG TABLET PO PRN ×2 (06:01→10:18)
[2017-11-02 08:32] LABS: ALBUMIN 2.1 g/dl (3.5-5.0); ALK PHOS 93 U/L (32-92); ANION GAP 6 (8-16); BILIRUBIN,TOTAL 1.1 mg/dl (0.2-1.0); CALCIUM 7.6 mg/dl (8.4-10.2); CO2 22 mmol/L (22-28); CREATININE 0.6 mg/dl (0.6-1.3); GLUCOSE,RANDOM 105 mg/dl (74-106); MAGNESIUM 1.8 mg/dL (1.8-2.4); PHOSPHOROUS 2.4 mg/dl (2.5-4.6); SGOT/AST 41 U/L (10-42); SGPT/ALT 33 U/L (10-40); TOT PROT 4.9 g/dl (6.4-8.3)
[2017-11-02 08:41] LABS: MCH 31.8 pg (25.7-33.7); MCHC 33.8 g/dl (32.0-36.0); MEAN PLT VOLUME 10.1 fl (7.5-11.1); PLATELET COUNT 128 K/MM3 (134-434); RDW 12.4 % (11.6-15.6); WHITE BLOOD COUNT 11.2 K/mm3 (4.0-10.8)
--- NOTE | 2017-11-02 08:55 | PN ---
Progress Note, Physician History of Present Illness: Awake, alert OOB in chair Remains febrile 103 C/O R hip pain No c/o chest pain/ dyspnea Repeat BC pending - Current Medication List Current Medications: Active Medications Acetaminophen (Tylenol -) 650 mg PO Q4H PRN PRN Reason: FEVER OR PAIN LEVEL 1-5 Last Admin: 11/02/17 05:58 Dose: 650 mg Enalapril Maleate (Vasotec -) 10 mg PO DAILY [facility] Last Admin: 11/01/17 09:32 Dose: 10 mg Heparin Sodium (Porcine) (Heparin -) 5,000 unit SQ BID [facility] Last Admin: 11/01/17 21:11 Dose: 5,000 unit Vancomycin HCl (Vancomycin (Pre-Docked)) 1,000 mg in 250 mls @ 166.667 mls/hr IVPB Q12H [facility] Last Admin: 11/01/17 21:10 Dose: 166.667 mls/hr Potassium Chloride/Sodium Chloride (Ns+20 Meq Kcl -) 20 meq in 1,000 mls @ 75 mls/hr IV ASDIR [facility] Last Admin: 11/01/17 09:32 Dose: 75 mls/hr Piperacillin Sod/Tazobactam Sod (Zosyn 3.375gm Ivpb (Pre-Docked)) 3.375 gm in 50 mls @ 100 mls/hr IVPB Q8H-IV DENY PRN Reason: Protocol Last Admin: 11/02/17 01:43 Dose: 100 mls/hr Oxycodone HCl (Roxicodone -) 5 mg PO Q6H PRN PRN Reason: PAIN LEVEL 6-10 Last Admin: 11/02/17 06:01 Dose: 5 mg Ranitidine HCl (Zantac -) 150 mg PO DAILY [facility] Last Admin: 11/01/17 09:33 Dose: 150 mg - Objective Vital Signs: Vital Signs Temperature 98.6 F 11/02/17 07:19 Pulse Rate 97 H 11/02/17 06:00 Respiratory Rate 20 11/02/17 06:00 Blood Pressure 140/90 11/02/17 06:00 O2 Sat by Pulse Oximetry (%) 100 11/02/17 06:00 Constitutional: Yes: No Distress Eyes: Yes: Conjunctiva Clear Cardiovascular: Yes: Regular Rate and Rhythm, S1, S2. No: Murmur Respiratory: Yes: CTA Bilaterally Gastrointestinal: Yes: Normal Bowel Sounds, Soft. No: Tenderness Edema: No Labs: CBC, BMP 11/02/17 07:55 11/02/17 07:55 INR, PTT INR 1.62 (0.82-1.09) H D 10/31/17 07:30 Assessment/Plan Staph bacteremia/ sepsis R/O endocarditis Fever/ leukocytosis Remains febrile; WBC improved Lactic acidosis- resolved Substitute nafcillin 2gm IVPB q4h Check repeat BC
--- NOTE | 2017-11-02 09:20 | PN ---
Physical Exam: SUBJECTIVE: Patient seen and examined Right Hip pain 10/10 when trying to move Unable to stand Fully ambulatory week ago Continues having fever OBJECTIVE: Vital Signs Period Temp Pulse Resp BP Sys/Singh Pulse Ox Last 24 Hr 97.8 F-103.0 F 62-99 18-20 95-140/45-90 92-100 Constitutional: Yes: No Distress Eyes: Yes: Conjunctiva Clear Cardiovascular: Yes: Regular Rate and Rhythm, S1, S2. No: Murmur Respiratory: Yes: CTA Bilaterally Gastrointestinal: Yes: Normal Bowel Sounds, Soft. No: Tenderness Edema: No MS: pain upon flexion and extension of the right hip SKIN: laceration 3rd digit Laboratory Results - last 24 hr 11/01/17 11/01/17 11/02/17 07:30 19:00 07:55 WBC 14.7 H 11.2 H RBC 3.70 3.48 L Hgb 11.9 11.1 Hct 34.9 32.8 MCV 94.2 94.0 MCH 32.3 31.8 MCHC 34.2 33.8 RDW 12.5 12.4 Plt Count 117 L 128 L MPV 10.3 10.1 Neutrophils % 88.6 H No Result Required. Lymphocytes % 5.7 L D No Result Required. Monocytes % 5.2 Eosinophils % 0.3 D Basophils % 0.2 D Sodium Potassium Chloride Carbon Dioxide Anion Gap BUN Creatinine Creat Clearance w eGFR Random Glucose Calcium Phosphorus Magnesium Total Bilirubin AST ALT Alkaline Phosphatase Total Protein Albumin Vancomycin Pre-Dose 11.334 H 11/02/17 07:55 WBC RBC Hgb Hct MCV MCH MCHC RDW Plt Count MPV Neutrophils % Lymphocytes % Monocytes % Eosinophils % Basophils % Sodium 131 L Potassium 3.4 L Chloride 103 Carbon Dioxide 22 Anion Gap 6 L BUN 12 Creatinine 0.6 Creat Clearance w eGFR > 60 Random Glucose 105 Calcium 7.6 L Phosphorus 2.4 L Magnesium 1.8 Total Bilirubin 1.1 H AST 41 ALT 33 Alkaline Phosphatase 93 H D Total Protein 4.9 L Albumin 2.1 L D Vancomycin Pre-Dose Microbiology 10/30/17 09:10 Blood Culture - Final Blood - Peripheral Venous Staphylococcus Aureus 10/31/17 09:10 Blood Culture - Preliminary Blood - Peripheral Venous Presumptive Mssa (Pbp2a Neg) 10/31/17 09:30 Blood Culture - Preliminary Blood - Peripheral Venous Presumptive Mssa (Pbp2a Neg) 10/30/17 09:05 Blood Culture - Preliminary Blood - Peripheral Venous Presumptive Mssa (Pbp2a Neg) Active Medications Generic Name Dose Route Start Last Admin Trade Name Freq PRN Reason Stop Dose Admin Acetaminophen 650 mg 10/30/17 13:03 11/02/17 05:58 Tylenol - PO 650 mg Q4H PRN Administration FEVER OR PAIN LEVEL 1-5 Enalapril Maleate 10 mg 11/01/17 10:00 11/01/17 09:32 Vasotec - PO 10 mg DAILY DENY Administration Heparin Sodium (Porcine) 5,000 unit 10/30/17 22:00 11/01/17 21:11 Heparin - SQ 5,000 unit BID DENY Administration Potassium Chloride/Sodium Chloride 20 meq in 1,000 mls @ 75 mls/hr 10/31/17 10 :00 11/01/17 09:32 Ns+20 Meq Kcl - IV 75 mls/hr ASDIR DENY Administration Nafcillin Sodium 2 gm/ 100 mls @ 100 mls/hr 11/02/17 10:00 Dextrose IVPB Q4H-IV DENY Protocol Oxycodone HCl 5 mg 10/31/17 12:01 11/02/17 06:01 Roxicodone - PO 5 mg Q6H PRN Administration PAIN LEVEL 6-10 Ranitidine HCl 150 mg 10/31/17 10:00 11/01/17 09:33 Zantac - PO 150 mg DAILY DENY Administration ASSESSMENT/PLAN: 77 year old female with acute onset of right hip pain,history of hip replacement 10 years ago , fever and MSSA bacteremia. 1. Sepsis / MSSA bacteremia - suspected source is skin , however can not completely exclude hardware infection at this time - Nafcillin IV Q4 per ID - follow final susceptibility results - SOPHIA r/o endocarditis if no response - would consider MRI Right hip however not clear on the type of hardware but will defer this decision to ortho network systems consultant 2. Hypokalemia- - supplement and repeat potassium 3. Right hip pain - patient is fully alert and oriented and denies to me any history of falls and trauma . No acute fractures on imaging . Abnorma CT of right hip - pain control with tylenol 4. DVT PPX- with heparin SC Visit type - Emergency Visit Emergency Visit: Yes ED Registration Date: 10/30/17 Care time: The patient presented to the Emergency Department on the above date and was hospitalized for further evaluation of their emergent condition. - New Patient This patient is new to me today: Yes Date on this admission: 11/02/17 - Critical Care Critical Care patient: No - Discharge Referral Referred to [facility] Med P.C.: No
[2017-11-02 09:34] LABS: PLATELET ESTIMATE DECREASED
[2017-11-02] MEDS: NAFCILLIN - 2 GM in DEXTROSE 5%-WATER - 100 ML IVPB SCH ×4 (10:17→21:33)
[2017-11-02] MEDS: HEPARIN NA (PORCINE) 5,000 UNITS/ML 1ML VIAL SQ SCH ×2 (10:17→21:35)
[2017-11-02] MEDS: SODIUM CHLORIDE 0.9%/KCL 20 MEQ/1,000 ML INFUS.BAG IV SCH (10:18)
[2017-11-02] MEDS: RANITIDINE HCL 150 MG TABLET (FP) PO SCH (10:18)
[2017-11-02] MEDS: ENALAPRIL MALEATE 10 MG TABLET (FP) PO SCH (10:18)
[2017-11-02] MEDS ORDERED: POTASSIUM CHLORIDE TABS 20 MEQ TABLET.ER (FP) PO ONE (10:34)
--- NOTE | 2017-11-02 12:26 | PN ---
Progress Note, Physician Chief Complaint: Events noted Not in distress History of Present Illness: Patient was seen and examined Denies chest pain, SOB or palpitations Discussed indication for SOPHIA - Current Medication List Current Medications: Active Medications Acetaminophen (Tylenol -) 650 mg PO Q4H PRN PRN Reason: FEVER OR PAIN LEVEL 1-5 Last Admin: 11/02/17 05:58 Dose: 650 mg Enalapril Maleate (Vasotec -) 10 mg PO DAILY [facility] Last Admin: 11/02/17 10:18 Dose: 10 mg Heparin Sodium (Porcine) (Heparin -) 5,000 unit SQ BID [facility] Last Admin: 11/02/17 10:17 Dose: 5,000 unit Potassium Chloride/Sodium Chloride (Ns+20 Meq Kcl -) 20 meq in 1,000 mls @ 75 mls/hr IV ASDIR [facility] Last Admin: 11/02/17 10:18 Dose: 75 mls/hr Nafcillin Sodium 2 gm/ (Dextrose) 100 mls @ 100 mls/hr IVPB Q4H-IV DENY PRN Reason: Protocol Last Admin: 11/02/17 10:17 Dose: 100 mls/hr Oxycodone HCl (Roxicodone -) 5 mg PO Q6H PRN PRN Reason: PAIN LEVEL 6-10 Last Admin: 11/02/17 10:18 Dose: 5 mg Ranitidine HCl (Zantac -) 150 mg PO DAILY [facility] Last Admin: 11/02/17 10:18 Dose: 150 mg - Objective Vital Signs: Vital Signs Temperature 98.6 F 11/02/17 07:19 Pulse Rate 97 H 11/02/17 06:00 Respiratory Rate 20 11/02/17 06:00 Blood Pressure 140/90 11/02/17 06:00 O2 Sat by Pulse Oximetry (%) 100 11/02/17 06:00 Eyes: Yes: PERRL HENT: Yes: Atraumatic Neck: Yes: Supple Cardiovascular: Yes: Regular Rate and Rhythm, S1, S2. No: Murmur Respiratory: Yes: CTA Bilaterally Gastrointestinal: Yes: Normal Bowel Sounds, Soft. No: Tenderness Edema: No Labs: CBC, BMP 11/02/17 07:55 11/02/17 07:55 Problem List - Problems (1) HTN (hypertension) Code(s): I10 - ESSENTIAL (PRIMARY) HYPERTENSION Qualifiers: Hypertension type: essential hypertension Qualified Code(s): I10 - Essential (primary) hypertension (2) Lactic acid acidosis Code(s): E87.2 - ACIDOSIS (3) Leukocytosis Code(s): D72.829 - ELEVATED WHITE BLOOD CELL COUNT, UNSPECIFIED Qualifiers: Leukocytosis type: unspecified Qualified Code(s): D72.829 - Elevated white blood cell count, unspecified (4) Right hip pain Code(s): M25.551 - PAIN IN RIGHT HIP (5) Sepsis Code(s): A41.9 - SEPSIS, UNSPECIFIED ORGANISM Qualifiers: Sepsis type: sepsis due to unspecified organism Qualified Code(s): A41.9 - Sepsis, unspecified organism (6) Thrombocytopenia Code(s): D69.6 - THROMBOCYTOPENIA, UNSPECIFIED (7) Weakness generalized Code(s): R53.1 - WEAKNESS Assessment/Plan 1. Fever/leukocytosis/thrombocytopenia referable to Staph bacteremia/sepsis, etiology to be determined 2. HTN/HCVD 3. Right hip pain s/p THR PLAN: 1. Antibiotic coverage - (+) blood cultures and leukocytosis 2. Plan for SOPHIA Saturday AM to rule out vegetations. TTE report noted 3. Continue Vasotec 10 mg qd Further plans are to follow Discussed with family member Ministerio Pride MD
[2017-11-03] MEDS: NAFCILLIN - 2 GM in DEXTROSE 5%-WATER - 100 ML IVPB SCH ×6 (01:46→21:24)
[2017-11-03 08:40] LABS: BASO % 0.2 % (0-2.0); EOS % 1.5 % (0-4.5); MCH 32.6 pg (25.7-33.7); MEAN CELL VOLUME 95.7 fl (80-96); MEAN PLT VOLUME 10.7 fl (7.5-11.1); NEUT % 84.7 % (42.8-82.8); PLATELET COUNT 144 K/MM3 (134-434); RDW 12.9 % (11.6-15.6); WHITE BLOOD COUNT 13.2 K/mm3 (4.0-10.8)
[2017-11-03 09:07] LABS: ANION GAP 12 (8-16); CALCIUM 7.8 mg/dl (8.4-10.2); CO2 23 mmol/L (22-28); CREATININE 0.5 mg/dl (0.6-1.3); GLUCOSE,RANDOM 102 mg/dl (74-106)
[2017-11-03] MEDS: oxyCODONE HCL 5 MG TABLET PO PRN ×3 (09:27→20:06)
[2017-11-03] MEDS: RANITIDINE HCL 150 MG TABLET (FP) PO SCH (09:27)
[2017-11-03] MEDS: ENALAPRIL MALEATE 10 MG TABLET (FP) PO SCH (09:27)
[2017-11-03] MEDS: HEPARIN NA (PORCINE) 5,000 UNITS/ML 1ML VIAL SQ SCH ×2 (09:28→21:25)
--- NOTE | 2017-11-03 09:30 | PN ---
Physical Exam: SUBJECTIVE: Patient seen and examined. Complaining of severe right hip pain limiting ROM. No fevers/chills. OBJECTIVE: Blood cultures 11/02 prelim positive. Vital Signs Period Temp Pulse Resp BP Sys/Singh Pulse Ox Last 24 Hr 98.0 F-99.8 F 72-98 18-20 113-133/46-53 95-100 GENERAL: The patient is awake, alert, and fully oriented, in no acute distress. HEAD: Normal with no signs of trauma. EYES: PERRL, extraocular movements intact, sclera anicteric, conjunctiva clear. No ptosis. ENT: Ears normal, nares patent, oropharynx clear without exudates, moist mucous membranes. NECK: Trachea midline, full range of motion, supple. LUNGS: Breath sounds equal, clear to auscultation bilaterally, no wheezes, no crackles, no accessory muscle use. HEART: Regular rate and rhythm, S1, S2. Soft systolic murmur. Patient does not have known history of murmur. ABDOMEN: Soft, nontender, nondistended, normoactive bowel sounds, no guarding, no rebound, no hepatosplenomegaly, no masses. EXTREMITIES: 2+ pulses, warm, well-perfused, no edema. Right hip tenderness, unable to flex or abduct right leg. NEUROLOGICAL: Cranial nerves II through XII grossly intact. Normal speech, gait not observed. PSYCH: Normal mood, normal affect. SKIN: Warm, dry, normal turgor, no rashes or lesions noted. Laboratory Results - last 24 hr 11/02/17 11/03/17 11/03/17 07:55 06:00 06:00 WBC 13.2 H RBC 3.98 Hgb 12.9 D Hct 38.0 D MCV 95.7 MCH 32.6 MCHC 34.0 RDW 12.9 Plt Count 144 MPV 10.7 Neutrophils % 84.7 H Neutrophils % (Manual) 87.0 H Band Neutrophils % 3.0 Lymphocytes % 6.5 L Lymphocytes % (Manual) 5.0 L D Monocytes % 7.1 Monocytes % (Manual) 5 D Eosinophils % 1.5 D Basophils % 0.2 Platelet Estimate Decreased Sodium 137 Potassium 3.7 Chloride 102 Carbon Dioxide 23 Anion Gap 12 BUN 11 Creatinine 0.5 L Random Glucose 102 Calcium 7.8 L Active Medications Generic Name Dose Route Start Last Admin Trade Name Freq PRN Reason Stop Dose Admin Acetaminophen 650 mg 10/30/17 13:03 11/02/17 20:10 Tylenol - PO 650 mg Q4H PRN Administration FEVER OR PAIN LEVEL 1-5 Enalapril Maleate 10 mg 11/01/17 10:00 11/03/17 09:27 Vasotec - PO 10 mg DAILY DENY Administration Heparin Sodium (Porcine) 5,000 unit 10/30/17 22:00 11/03/17 09:28 Heparin - SQ 5,000 unit BID DENY Administration Potassium Chloride/Sodium Chloride 20 meq in 1,000 mls @ 75 mls/hr 10/31/17 10 :00 11/02/17 10:18 Ns+20 Meq Kcl - IV 75 mls/hr ASDIR DENY Administration Nafcillin Sodium 2 gm/ 100 mls @ 100 mls/hr 11/02/17 10:00 11/03/17 09:26 Dextrose IVPB 100 mls/hr Q4H-IV DENY Administration Protocol Oxycodone HCl 5 mg 10/31/17 12:01 11/03/17 09:27 Roxicodone - PO 5 mg Q6H PRN Administration PAIN LEVEL 6-10 Ranitidine HCl 150 mg 10/31/17 10:00 11/03/17 09:27 Zantac - PO 150 mg DAILY DENY Administration Microbiology 10/31/17 09:10 Blood - Peripheral Venous Blood Culture - Final Presumptive Mssa (Pbp2a Neg) 10/31/17 09:30 Blood - Peripheral Venous Blood Culture - Final Staphylococcus Aureus 11/02/17 06:00 Blood - Peripheral Venous Blood Culture - Preliminary Pending Organism 11/02/17 06:00 Blood - Peripheral Venous Blood Culture - Preliminary Pending Organism 10/30/17 09:10 Blood - Peripheral Venous Blood Culture - Final Staphylococcus Aureus 10/30/17 09:05 Blood - Peripheral Venous Blood Culture - Preliminary Presumptive Mssa (Pbp2a Neg) 10/30/17 11:17 Urine - Urine Clean Catch Urine Culture - Final NO GROWTH OBTAINED 10/30/17 Unknown Nasopharyngeal Swab Influenza Types A,B Antigen (SARAH) - Final 10/30/17 Unknown Nasopharyngeal Swab - Final IMAGING CT of pelvis: no fracture no dislocation noted, thickening and attenuation of right hip, ? joint effusion Chest xray: no acute pathology ASSESSMENT/PLAN: 77 year old female with history of HTN admitted with sepsis and right hip pain. 1. ID: Bacteremia - Cultures 10/31 presumptive MSSA; repeat 11/02 already positive - Continue Nafcillin - TTE inconclusive; for SOPHIA tomorrow (NPO after midnight) - Would consider further evaluation of hip as possible source or secondary location of infection 2. MS: Right hip pain - Evaluated by ortho, less likely septic joint as per Dr Milligan - PT eval pending - Oxycodone 5mg po prn 3. CV: HTN - BP at goal - Continue Enalapril - Holding HCTZ in setting of sepsis 4. F/E/N - Low sodium diet - Mild hypokalemia, repleted 5. Ppx - No indication for GI ppx - [facility] Dispo: Requires inpatient services. Visit type - Emergency Visit Emergency Visit: Yes ED Registration Date: 10/30/17 Care time: The patient presented to the Emergency Department on the above date and was hospitalized for further evaluation of their emergent condition. - New Patient This patient is new to me today: Yes Date on this admission: 11/03/17 - Critical Care Critical Care patient: No
[2017-11-03] MEDS ORDERED: oxyCODONE HCL 5 MG TABLET ONE (12:57)
[2017-11-03] MEDS: SODIUM CHLORIDE 0.9%/KCL 20 MEQ/1,000 ML INFUS.BAG IV SCH (13:01)
[2017-11-03] MEDS: ACETAMINOPHEN 325 MG TABLET (FP) PO PRN (20:07)
[2017-11-04] MEDS: NAFCILLIN - 2 GM in DEXTROSE 5%-WATER - 100 ML IVPB SCH ×2 (01:44→06:31)
[2017-11-04] MEDS ORDERED: PROPOFOL 20 ML ONE ×4 (08:00)
--- NOTE | 2017-11-04 08:19 | PN ---
Progress Note (short form) - Note Progress Note: Ortho Pt seen and examined- still c/o right hip pain- no improvement Selected Entries 11/04/17 05:58 Temperature 98.9 F Pulse Rate 75 Respiratory 18 Rate Blood Pressure 135/64 Laboratory Tests 11/03/17 06:00 WBC 13.2 H Hgb 12.9 D Hct 38.0 D Plt Count 144 PE- + ttp, equal limb lengths, decr rom secondary to pain nvi a/p- Sepsis with right hip pain s/p thr ?source IV abx as per ID SOPHIA today Repeat CT scan of right hip PT eval, wbat will follow d/w Dr. Milligan
[2017-11-04 09:04] LABS: BASO % 0.2 % (0-2.0); EOS % 1.7 % (0-4.5); MCH 32.2 pg (25.7-33.7); MCHC 34.1 g/dl (32.0-36.0); MEAN CELL VOLUME 94.3 fl (80-96); MEAN PLT VOLUME 10.4 fl (7.5-11.1); PLATELET COUNT 184 K/MM3 (134-434); RDW 13.2 % (11.6-15.6); WHITE BLOOD COUNT 13.5 K/mm3 (4.0-10.8)
[2017-11-04 09:18] LABS: INR 1.11 (0.82-1.09); PROTHROMBIN TIME (PATIENT) 12.4 SEC (10.2-13.0)
[2017-11-04 09:28] LABS: ALBUMIN 1.7 g/dl (3.5-5.0); ALK PHOS 131 U/L (32-92); ANION GAP 10 (8-16); BILIRUBIN,TOTAL 3.6 mg/dl (0.2-1.0); CALCIUM 7.8 mg/dl (8.4-10.2); CO2 25 mmol/L (22-28); CREATININE 0.4 mg/dl (0.6-1.3); GLUCOSE,RANDOM 95 mg/dl (74-106); SGOT/AST 83 U/L (10-42); SGPT/ALT 64 U/L (10-40); TOT PROT 4.9 g/dl (6.4-8.3)
[2017-11-04] MEDS ORDERED: LIDOCAINE VISCOUS 2% ORAL/TOP 20 ML UNIT-DOSE CUP ONE (09:48)
--- NOTE | 2017-11-04 09:52 | PN ---
Progress Note, Physician History of Present Illness: Awake, alert Supine in bed C/O L hip pain with movement and weight bearing Temps down No c/o chest pain/ dyspnea Repeat BC + For SOPHIA today - Current Medication List Current Medications: Active Medications Acetaminophen (Tylenol -) 650 mg PO Q4H PRN PRN Reason: FEVER OR PAIN LEVEL 1-5 Last Admin: 11/03/17 20:07 Dose: 650 mg Enalapril Maleate (Vasotec -) 10 mg PO DAILY COUNT INCLUDES [facility] Last Admin: 11/03/17 09:27 Dose: 10 mg Heparin Sodium (Porcine) (Heparin -) 5,000 unit SQ BID COUNT INCLUDES THE [facility] Last Admin: 11/03/17 21:25 Dose: 5,000 unit Potassium Chloride/Sodium Chloride (Ns+20 Meq Kcl -) 20 meq in 1,000 mls @ 75 mls/hr IV ASDIR COUNT INCLUDES THE [facility] Last Admin: 11/03/17 13:01 Dose: 75 mls/hr Nafcillin Sodium 2 gm/ (Dextrose) 100 mls @ 100 mls/hr IVPB Q4H-IV DENY PRN Reason: Protocol Last Admin: 11/04/17 06:31 Dose: 100 mls/hr Oxycodone HCl (Roxicodone -) 5 mg PO Q6H PRN PRN Reason: PAIN Last Admin: 11/03/17 20:06 Dose: 5 mg Ranitidine HCl (Zantac -) 150 mg PO DAILY COUNT INCLUDES [facility] Last Admin: 11/03/17 09:27 Dose: 150 mg - Objective Vital Signs: Vital Signs Temperature 98.9 F 11/04/17 05:58 Pulse Rate 75 11/04/17 05:58 Respiratory Rate 18 11/04/17 05:58 Blood Pressure 135/64 11/04/17 05:58 O2 Sat by Pulse Oximetry (%) 100 11/04/17 05:58 Constitutional: Yes: No Distress Eyes: Yes: Conjunctiva Clear Neck: Yes: Trachea Midline Cardiovascular: Yes: Regular Rate and Rhythm, Murmur, S1, S2 Respiratory: Yes: CTA Bilaterally Gastrointestinal: Yes: Normal Bowel Sounds, Soft. No: Tenderness Musculoskeletal: Yes: Other (No tenderness over R hip) Integumentary: Yes: Other (Confluent rash limited to back) Labs: CBC, BMP 11/04/17 07:30 11/04/17 07:30 INR, PTT INR 1.11 (0.82-1.09) D 11/04/17 07:30 Assessment/Plan Staph bacteremia/ sepsis R/O endocarditis Possible infected R hip prosthesis Elevated LFTs Likely Nafcillin Fungal rash Lactic acidosis- resolved On nafcillin 2gm IVPB q4h may need to switch to cefazolin in light of increasing LFTs For SOPHIA, CT R hip Repeat BC Topical antifungal
[2017-11-04] MEDS ORDERED: NYSTATIN 100,000 UNIT/GM TOPICAL CREAM 15 GM TUBE TP SCH (10:00)
[2017-11-04] MEDS ORDERED: ePHEDrine SULFATE 50 MG/1 ML AMPULE ONE (11:04)
--- NOTE | 2017-11-04 11:41 | PN ---
Progress Note, Physician Chief Complaint: Events noted Not in distress intermittent fever History of Present Illness: Patient was seen and examined. Awake and alert. Chart was reviewed Denies chest pain, SOB or palpitations Seen in Endoscopy suite for SOPHIA - Current Medication List Current Medications: Active Medications Acetaminophen (Tylenol -) 650 mg PO Q4H PRN PRN Reason: FEVER OR PAIN LEVEL 1-5 Last Admin: 11/03/17 20:07 Dose: 650 mg Enalapril Maleate (Vasotec -) 10 mg PO DAILY [facility] Last Admin: 11/03/17 09:27 Dose: 10 mg Heparin Sodium (Porcine) (Heparin -) 5,000 unit SQ BID DENY Last Admin: 11/03/17 21:25 Dose: 5,000 unit Potassium Chloride/Sodium Chloride (Ns+20 Meq Kcl -) 20 meq in 1,000 mls @ 75 mls/hr IV ASDIR [facility] Last Admin: 11/03/17 13:01 Dose: 75 mls/hr Nafcillin Sodium 2 gm/ (Dextrose) 100 mls @ 100 mls/hr IVPB Q4H-IV DENY PRN Reason: Protocol Last Admin: 11/04/17 06:31 Dose: 100 mls/hr Lactobacillus Acidophilus (Bacid -) 1 tab PO DAILY DENY Nystatin (Mycostatin Cream -) 1 applic TP BID DENY Nystatin/Triamcinolone Acetonide (Mycolog Ii Cream -) 0 applic TP BID DENY Oxycodone HCl (Roxicodone -) 5 mg PO Q6H PRN PRN Reason: PAIN Last Admin: 11/03/17 20:06 Dose: 5 mg Ranitidine HCl (Zantac -) 150 mg PO DAILY [facility] Last Admin: 11/03/17 09:27 Dose: 150 mg - Objective Vital Signs: Vital Signs Temperature 98.0 F 11/04/17 10:35 Pulse Rate 92 H 11/04/17 11:20 Respiratory Rate 20 11/04/17 11:20 Blood Pressure 133/65 11/04/17 11:20 O2 Sat by Pulse Oximetry (%) 98 11/04/17 11:20 Eyes: Yes: PERRL HENT: Yes: Atraumatic Neck: Yes: Supple Cardiovascular: Yes: Regular Rate and Rhythm, S1, S2 Respiratory: Yes: CTA Bilaterally Gastrointestinal: Yes: Normal Bowel Sounds, Soft. No: Tenderness Edema: No Labs: CBC, BMP 11/04/17 07:30 11/04/17 07:30 INR, PTT INR 1.11 (0.82-1.09) D 11/04/17 07:30 Problem List - Problems (1) HTN (hypertension) Code(s): I10 - ESSENTIAL (PRIMARY) HYPERTENSION Qualifiers: Hypertension type: essential hypertension Qualified Code(s): I10 - Essential (primary) hypertension (2) Lactic acid acidosis Code(s): E87.2 - ACIDOSIS (3) Leukocytosis Code(s): D72.829 - ELEVATED WHITE BLOOD CELL COUNT, UNSPECIFIED Qualifiers: Leukocytosis type: unspecified Qualified Code(s): D72.829 - Elevated white blood cell count, unspecified (4) Right hip pain Code(s): M25.551 - PAIN IN RIGHT HIP (5) Sepsis Code(s): A41.9 - SEPSIS, UNSPECIFIED ORGANISM Qualifiers: Sepsis type: sepsis due to unspecified organism Qualified Code(s): A41.9 - Sepsis, unspecified organism (6) Thrombocytopenia Code(s): D69.6 - THROMBOCYTOPENIA, UNSPECIFIED (7) Weakness generalized Code(s): R53.1 - WEAKNESS Assessment/Plan 1. Fever/leukocytosis/thrombocytopenia referable to Staph bacteremia/sepsis, etiology to be determined, rule out vegetation 2. HTN/HCVD 3. Right hip pain s/p THR PLAN: 1. Antibiotic coverage - (+) blood cultures and leukocytosis 2. Plan for SOPHIA today to rule out vegetations. 3. Continue Vasotec 10 mg qd 4. Management per ID service Further plans are to follow Ministerio Pride MD
[2017-11-04] MEDS: oxyCODONE HCL 5 MG TABLET PO PRN ×2 (13:04→18:24)
--- NOTE | 2017-11-04 13:04 | PN ---
Physical Exam: SUBJECTIVE: Patient seen and examined, reports pain to the right hip and tactile fever OBJECTIVE:patient is a 77 y/o female with a past medical history of hypertension. patient was admitted from the emergency department for sepsis secondary to mssa bacteremia Vital Signs Period Temp Pulse Resp BP Sys/Singh Pulse Ox Last 24 Hr 97.8 F-99.0 F 72-97 18-22 114-140/49-82 95-100 GENERAL: The patient is awake, alert, and fully oriented, in no acute distress. HEAD: Normal with no signs of trauma. EYES: PERRL, extraocular movements intact, sclera anicteric, conjunctiva clear. No ptosis. ENT: Ears normal, nares patent, oropharynx clear without exudates, moist mucous membranes. NECK: Trachea midline, full range of motion, supple. LUNGS: Breath sounds equal, clear to auscultation bilaterally, no wheezes, no crackles, no accessory muscle use. HEART: Regular rate and rhythm, S1, S2 without murmur, rub or gallop. ABDOMEN: Soft, nontender, nondistended, normoactive bowel sounds, no guarding, no rebound, no hepatosplenomegaly, no masses. EXTREMITIES: 2+ pulses, warm, well-perfused, no edema. RIGHT LOWER EXTREMITY: pain upon abduction and adduction of the right hip, point tenderness to the right lateral hip NEUROLOGICAL: Cranial nerves II through XII grossly intact. Normal speech, gait not observed. PSYCH: Normal mood, normal affect. SKIN: Warm, dry, normal turgor, no rashes or lesions noted Laboratory Results - last 24 hr 11/04/17 11/04/17 11/04/17 07:30 07:30 07:30 WBC 13.5 H RBC 3.72 Hgb 12.0 Hct 35.1 MCV 94.3 MCH 32.2 MCHC 34.1 RDW 13.2 Plt Count 184 D MPV 10.4 Neutrophils % 84.0 H Lymphocytes % 6.3 L Monocytes % 7.8 Eosinophils % 1.7 Basophils % 0.2 PT with INR 12.4 INR 1.11 D Sodium 137 Potassium 3.2 L Chloride 102 Carbon Dioxide 25 Anion Gap 10 BUN 9 Creatinine 0.4 L Creat Clearance w eGFR > 60 Random Glucose 95 Calcium 7.8 L Total Bilirubin 3.6 H D AST 83 H D ALT 64 H D Alkaline Phosphatase 131 H D Total Protein 4.9 L Albumin 1.7 L Active Medications Generic Name Dose Route Start Last Admin Trade Name Freq PRN Reason Stop Dose Admin Acetaminophen 650 mg 10/30/17 13:03 11/03/17 20:07 Tylenol - PO 650 mg Q4H PRN Administration FEVER OR PAIN LEVEL 1-5 Enalapril Maleate 10 mg 11/01/17 10:00 11/03/17 09:27 Vasotec - PO 10 mg DAILY DENY Administration Heparin Sodium (Porcine) 5,000 unit 10/30/17 22:00 11/03/17 21:25 Heparin - SQ 5,000 unit BID DENY Administration Potassium Chloride/Sodium Chloride 20 meq in 1,000 mls @ 75 mls/hr 10/31/17 10 :00 11/03/17 13:01 Ns+20 Meq Kcl - IV 75 mls/hr ASDIR DENY Administration Nafcillin Sodium 2 gm/ 100 mls @ 100 mls/hr 11/02/17 10:00 11/04/17 06:31 Dextrose IVPB 100 mls/hr Q4H-IV DENY Administration Protocol Lactobacillus Acidophilus 1 tab 11/04/17 10:00 Bacid - PO DAILY DENY Nystatin/Triamcinolone Acetonide 1 applic 11/04/17 10:00 Mycolog Ii Cream - TP BID DENY Oxycodone HCl 5 mg 11/03/17 12:56 11/03/17 20:06 Roxicodone - PO 5 mg Q6H PRN Administration PAIN Ranitidine HCl 150 mg 10/31/17 10:00 11/03/17 09:27 Zantac - PO 150 mg DAILY DENY Administration Microbiology 11/02/17 06:00 Blood - Peripheral Venous Blood Culture - Preliminary Staphylococcus Aureus 11/02/17 06:00 Blood - Peripheral Venous Blood Culture - Preliminary Staphylococcus Aureus 10/31/17 09:10 Blood - Peripheral Venous Blood Culture - Final Presumptive Mssa (Pbp2a Neg) 10/31/17 09:30 Blood - Peripheral Venous Blood Culture - Final Staphylococcus Aureus 10/30/17 09:10 Blood - Peripheral Venous Blood Culture - Final Staphylococcus Aureus 10/30/17 09:05 Blood - Peripheral Venous Blood Culture - Preliminary Presumptive Mssa (Pbp2a Neg) 10/30/17 11:17 Urine - Urine Clean Catch Urine Culture - Final NO GROWTH OBTAINED 10/30/17 Unknown Nasopharyngeal Swab Influenza Types A,B Antigen (SARAH) - Final 10/30/17 Unknown Nasopharyngeal Swab - Final IMAGING CT of pelvis: no fracture no dislocation noted, thickening and attenuation of right hip, ? joint effusion Chest xray: no acute pathology ASSESSMENT/PLAN: 1. ID: Bacteremia - Cultures 10/31 presumptive MSSA; repeat 11/02, + staph aureus, continue naficilin - TTE inconclusive; for SOPHIA today - right hip has onggoing pain and tenderness upon exam ? pending CT of lower extremity, suspicion for source of infection 2. MS: Right hip pain - Evaluated by ortho, less likely septic joint as per Dr Milligan - PT eval pending - Oxycodone 5mg po prn 3. CV: HTN - BP at goal - Continue Enalapril - Holding HCTZ in setting of sepsis 4. F/E/N - Low sodium diet - Mild hypokalemia, repleted 5. Ppx - No indication for GI ppx - [facility] Dispo: Requires inpatient services. Visit type - Emergency Visit Emergency Visit: Yes ED Registration Date: 10/30/17 Care time: The patient presented to the Emergency Department on the above date and was hospitalized for further evaluation of their emergent condition. - New Patient This patient is new to me today: Yes Date on this admission: 11/04/17 - Critical Care Critical Care patient: No - Discharge Referral Referred to [facility] Med P.C.: No
[2017-11-04] MEDS: NYSTATIN/TRIAMCINOLONE TOPICAL CREAM 15 GM TUBE TP SCH ×2 (13:05→22:50)
[2017-11-04] MEDS: ENALAPRIL MALEATE 10 MG TABLET (FP) PO SCH (13:05)
[2017-11-04] MEDS: RANITIDINE HCL 150 MG TABLET (FP) PO SCH (13:05)
[2017-11-04] MEDS: SODIUM CHLORIDE 0.9%/KCL 20 MEQ/1,000 ML INFUS.BAG IV SCH (13:05)
[2017-11-04] MEDS: LACTOBACILLUS ACIDOPHILUS 1 EACH TAB (FP) PO SCH (13:05)
[2017-11-04] MEDS ORDERED: POTASSIUM CHLORIDE TABS 20 MEQ TABLET.ER (FP) PO ONE (13:24)
[2017-11-04] MEDS: CEFAZOLIN 2 GM/D5W 2 GM/50 ML ML IVPB SCH ×2 (13:57→18:22)
[2017-11-04 14:36] LABS: MAGNESIUM 1.9 mg/dL (1.8-2.4); PHOSPHOROUS 2.9 mg/dl (2.5-4.6)
[2017-11-04] MEDS: ACETAMINOPHEN 325 MG TABLET (FP) PO PRN (18:25)
[2017-11-04] MEDS: HEPARIN NA (PORCINE) 5,000 UNITS/ML 1ML VIAL SQ SCH (22:46)
[2017-11-05] MEDS: CEFAZOLIN 2 GM/D5W 2 GM/50 ML ML IVPB SCH ×3 (01:18→18:43)
[2017-11-05] MEDS: oxyCODONE HCL 5 MG TABLET PO PRN ×2 (04:05→22:02)
[2017-11-05] MEDS: ACETAMINOPHEN 325 MG TABLET (FP) PO PRN ×2 (04:06→22:03)
[2017-11-05 08:14] LABS: ALBUMIN 1.5 g/dl (3.5-5.0); ALK PHOS 117 U/L (32-92); ANION GAP 6 (8-16); BILIRUBIN,TOTAL 1.1 mg/dl (0.2-1.0); CALCIUM 7.3 mg/dl (8.4-10.2); CO2 26 mmol/L (22-28); CREATININE 0.5 mg/dl (0.6-1.3); GLUCOSE,RANDOM 115 mg/dl (74-106); MAGNESIUM 1.9 mg/dL (1.8-2.4); PHOSPHOROUS 2.7 mg/dl (2.5-4.6); SGOT/AST 47 U/L (10-42); SGPT/ALT 47 U/L (10-40); TOT PROT 4.6 g/dl (6.4-8.3)
[2017-11-05] MEDS ORDERED: MAGNESIUM SULFATE 2 GM in SODIUM CHLORIDE 100 ML IVPB ONE (08:19)
--- NOTE | 2017-11-05 08:21 | PN ---
Physical Exam: SUBJECTIVE: Patient seen and examined, patient reports ongoing pain to the right hip anticipating surgery today for I&D of the right hip OBJECTIVE: patient is a 77 y/o female with a past medical history of htn, admitted from the emergency dept for sepsis secondary to MSSA bacteremia. Vital Signs Period Temp Pulse Resp BP Sys/Singh Pulse Ox Last 24 Hr 98.0 F-99.2 F 84-97 18-22 100-140/42-82 96-100 GENERAL: The patient is awake, alert, and fully oriented, in no acute distress. HEAD: Normal with no signs of trauma. EYES: PERRL, extraocular movements intact, sclera anicteric, conjunctiva clear. No ptosis. ENT: Ears normal, nares patent, oropharynx clear without exudates, moist mucous membranes. NECK: Trachea midline, full range of motion, supple. LUNGS: Breath sounds equal, clear to auscultation bilaterally, no wheezes, no crackles, no accessory muscle use. HEART: Regular rate and rhythm, S1, S2 without murmur, rub or gallop. ABDOMEN: Soft, nontender, nondistended, normoactive bowel sounds, no guarding, no rebound, no hepatosplenomegaly, no masses. EXTREMITIES: 2+ pulses, warm, well-perfused, no edema. RIGHT LOWER EXTREMITY: pain upon abduction and adduction of the right leg, point tenderness to the right lateral hip. . NEUROLOGICAL: Cranial nerves II through XII grossly intact. Normal speech, gait not observed. PSYCH: Normal mood, normal affect. SKIN: Warm, dry, normal turgor, no rashes or lesions noted Laboratory Results - last 24 hr 11/04/17 11/04/17 11/04/17 07:30 07:30 07:30 WBC 13.5 H RBC 3.72 Hgb 12.0 Hct 35.1 MCV 94.3 MCH 32.2 MCHC 34.1 RDW 13.2 Plt Count 184 D MPV 10.4 Neutrophils % 84.0 H Lymphocytes % 6.3 L Monocytes % 7.8 Eosinophils % 1.7 Basophils % 0.2 PT with INR 12.4 INR 1.11 D Sodium 137 Potassium 3.2 L Chloride 102 Carbon Dioxide 25 Anion Gap 10 BUN 9 Creatinine 0.4 L Creat Clearance w eGFR > 60 Random Glucose 95 Calcium 7.8 L Phosphorus Magnesium Total Bilirubin 3.6 H D AST 83 H D ALT 64 H D Alkaline Phosphatase 131 H D Total Protein 4.9 L Albumin 1.7 L 11/04/17 11/05/17 07:30 07:30 WBC RBC Hgb Hct MCV MCH MCHC RDW Plt Count MPV Neutrophils % Lymphocytes % Monocytes % Eosinophils % Basophils % PT with INR INR Sodium 137 Potassium 3.2 L Chloride 105 Carbon Dioxide 26 Anion Gap 6 L BUN 11 D Creatinine 0.5 L D Creat Clearance w eGFR > 60 Random Glucose 115 H D Calcium 7.3 L Phosphorus 2.9 D 2.7 Magnesium 1.9 1.9 Total Bilirubin 1.1 H D AST 47 H D ALT 47 H D Alkaline Phosphatase 117 H Total Protein 4.6 L Albumin 1.5 L Active Medications Generic Name Dose Route Start Last Admin Trade Name Freq PRN Reason Stop Dose Admin Acetaminophen 650 mg 10/30/17 13:03 11/05/17 04:06 Tylenol - PO 650 mg Q4H PRN Administration FEVER OR PAIN LEVEL 1-5 Enalapril Maleate 10 mg 11/01/17 10:00 11/04/17 13:05 Vasotec - PO 10 mg DAILY DENY Administration Heparin Sodium (Porcine) 5,000 unit 10/30/17 22:00 11/04/17 22:46 Heparin - SQ 5,000 unit BID DENY Administration Cefazolin Sodium/Dextrose 2 gm in 50 mls @ 100 mls/hr 11/04/17 13:30 01:18 Ancef 2 Gm Premixed Ivpb - IVPB 100 mls/hr Q8H-IV DENY Administration Dextrose/Sodium Chloride 40 meq in 1,000 mls @ 75 mls/hr 11/05/17 08:30 Dextrose 5%-Normal Saline+40 Meq Kcl - IV ASDIR DENY Magnesium Sulfate 2 gm/ Sodium 104 mls @ 100 mls/hr 11/05/17 08:19 Chloride IVPB 11/05/17 09:21 ONCE ONE Lactobacillus Acidophilus 1 tab 11/04/17 10:00 11/04/17 13:05 Bacid - PO 1 tab DAILY DENY Administration Nystatin/Triamcinolone Acetonide 1 applic 11/04/17 10:00 11/04/17 22:50 Mycolog Ii Cream - TP 1 applic BID DENY Administration Oxycodone HCl 5 mg 11/03/17 12:56 12/19/17 04:05 Roxicodone - PO 5 mg Q6H PRN Administration PAIN Potassium Chloride 40 meq 11/05/17 08:17 K-Dur - PO 11/05/17 08:18 ONCE ONE Ranitidine HCl 150 mg 10/31/17 10:00 11/04/17 13:05 Zantac - PO 150 mg DAILY DENY Administration Microbiology 11/02/17 06:00 Blood - Peripheral Venous Blood Culture - Final Staphylococcus Aureus 11/02/17 06:00 Blood - Peripheral Venous Blood Culture - Final Staphylococcus Aureus 10/31/17 09:10 Blood - Peripheral Venous Blood Culture - Final Presumptive Mssa (Pbp2a Neg) 10/31/17 09:30 Blood - Peripheral Venous Blood Culture - Final Staphylococcus Aureus 10/30/17 09:10 Blood - Peripheral Venous Blood Culture - Final Staphylococcus Aureus 10/30/17 09:05 Blood - Peripheral Venous Blood Culture - Preliminary Presumptive Mssa (Pbp2a Neg) 10/30/17 11:17 Urine - Urine Clean Catch Urine Culture - Final NO GROWTH OBTAINED 10/30/17 Unknown Nasopharyngeal Swab Influenza Types A,B Antigen (SARAH) - Final 10/30/17 Unknown Nasopharyngeal Swab - Final IMAGING CT of pelvis: no fracture no dislocation noted, thickening and attenuation of right hip, ? joint effusion Chest xray: no acute pathology ASSESSMENT/PLAN: 1. ID: Bacteremia - blood Cultures 10/31 MSSA; repeat 11/02, + staph aureus, continue ancef - SOPHIA no vegetation, - ct of right lower extremity soft tissue stranding suspicious for inflammation vs infection - case discussed with Dr Bhatia, patient is pending OR today for I&D of right hip w/poly exchange 2. MS: Right hip pain - pending OR today for I&D and polyexchange of right hip - Oxycodone 5mg po prn 3. CV: HTN - BP at goal - Continue Enalapril - Holding HCTZ in setting of sepsis 4. F/E/N - npo, IVF d5 ns w/40meg KCI at 75ml/hr - hypokalemia, repleted 5. Ppx - zantac - hold heparin pending or - scd/bill patient is medically optimized for procedure Dispo: Requires inpatient services. Visit type - Emergency Visit Emergency Visit: Yes ED Registration Date: 10/30/17 Care time: The patient presented to the Emergency Department on the above date and was hospitalized for further evaluation of their emergent condition. - New Patient This patient is new to me today: No - Critical Care Critical Care patient: No - Discharge Referral Referred to [facility] Med P.C.: No
[2017-11-05 08:25] LABS: BASO % 0.1 % (0-2.0); EOS % 1.5 % (0-4.5); MCH 32.2 pg (25.7-33.7); MCHC 34.3 g/dl (32.0-36.0); MEAN CELL VOLUME 93.7 fl (80-96); MEAN PLT VOLUME 10.2 fl (7.5-11.1); NEUT % 86.2 % (42.8-82.8); PLATELET COUNT 209 K/MM3 (134-434); RDW 12.9 % (11.6-15.6); WHITE BLOOD COUNT 17.8 K/mm3 (4.0-10.8)
[2017-11-05] MEDS ORDERED: POTASSIUM CHLORIDE TABS 20 MEQ TABLET.ER (FP) PO ONE (09:00)
[2017-11-05] MEDS ORDERED: MAGNESIUM SULF 50% (8.12 MEQ/2 ML-1 GM VIAL) IVPB ONE (09:00)
--- NOTE | 2017-11-05 09:05 | PN ---
Progress Note, Physician History of Present Illness: Awake, alert No c/o hip pain at rest Supine in bed No c/o chest pain/ dyspnea Repeat BC ordered yesterday. Not done. SOPHIA done No vegetations For I&D R hip today by Dr. Bhatia - Current Medication List Current Medications: Active Medications Acetaminophen (Tylenol -) 650 mg PO Q4H PRN PRN Reason: FEVER OR PAIN LEVEL 1-5 Last Admin: 11/05/17 04:06 Dose: 650 mg Enalapril Maleate (Vasotec -) 10 mg PO DAILY [facility] Last Admin: 11/04/17 13:05 Dose: 10 mg Heparin Sodium (Porcine) (Heparin -) 5,000 unit SQ BID [facility] Last Admin: 11/04/17 22:46 Dose: 5,000 unit Cefazolin Sodium/Dextrose (Ancef 2 Gm Premixed Ivpb -) 2 gm in 50 mls @ 100 mls /hr IVPB Q8H-IV [facility] Last Admin: 11/05/17 01:18 Dose: 100 mls/hr Dextrose/Sodium Chloride (Dextrose 5%-Normal Saline+40 Meq Kcl -) 40 meq in 1, 000 mls @ 75 mls/hr IV ASDIR [facility] Lactobacillus Acidophilus (Bacid -) 1 tab PO DAILY [facility] Last Admin: 11/04/17 13:05 Dose: 1 tab Nystatin/Triamcinolone Acetonide (Mycolog Ii Cream -) 1 applic TP BID [facility] Last Admin: 11/04/17 22:50 Dose: 1 applic Oxycodone HCl (Roxicodone -) 5 mg PO Q6H PRN PRN Reason: PAIN Last Admin: 11/05/17 04:05 Dose: 5 mg Ranitidine HCl (Zantac -) 150 mg PO DAILY [facility] Last Admin: 11/04/17 13:05 Dose: 150 mg - Objective Vital Signs: Vital Signs Temperature 98.3 F 11/05/17 06:00 Pulse Rate 84 11/05/17 06:00 Respiratory Rate 19 11/05/17 06:00 Blood Pressure 110/43 11/05/17 06:00 O2 Sat by Pulse Oximetry (%) 96 11/05/17 06:00 Constitutional: Yes: No Distress Eyes: Yes: Conjunctiva Clear Cardiovascular: Yes: Regular Rate and Rhythm, S1, S2 Respiratory: Yes: CTA Bilaterally Gastrointestinal: Yes: Normal Bowel Sounds, Soft. No: Tenderness Extremities: Yes: Other (+ tenderness over R hip) Integumentary: Yes: Other (+ confluent fungal rash, back/groin) Labs: CBC, BMP 11/05/17 07:30 11/05/17 07:30 INR, PTT INR 1.11 (0.82-1.09) D 11/04/17 07:30 Assessment/Plan Staph bacteremia/ sepsis Possible infected R THR Elevated LFTs Likely Nafcillin. Switched to Cefazolin 2gm IVPB q8h Fungal rash Lactic acidosis- resolved Continue cefazolin Check repeat BC For I&D R hip today Topical antifungal Discussed with patient's daughter Breanna by phone. Update given.
--- NOTE | 2017-11-05 09:09 | PN ---
Progress Note, Physician History of Present Illness: Afebrile, reports right thigh discomfort, persistent MSSA bacteremia, underwent SOPHIA yesterday negative for vegetation. - Current Medication List Current Medications: Active Medications Acetaminophen (Tylenol -) 650 mg PO Q4H PRN PRN Reason: FEVER OR PAIN LEVEL 1-5 Last Admin: 11/05/17 04:06 Dose: 650 mg Enalapril Maleate (Vasotec -) 10 mg PO DAILY ON LICENSE OF [facility] Last Admin: 11/04/17 13:05 Dose: 10 mg Heparin Sodium (Porcine) (Heparin -) 5,000 unit SQ BID ON LICENSE OF [facility] Last Admin: 11/04/17 22:46 Dose: 5,000 unit Cefazolin Sodium/Dextrose (Ancef 2 Gm Premixed Ivpb -) 2 gm in 50 mls @ 100 mls /hr IVPB Q8H-IV ON LICENSE OF [facility] Last Admin: 11/05/17 01:18 Dose: 100 mls/hr Dextrose/Sodium Chloride (Dextrose 5%-Normal Saline+40 Meq Kcl -) 40 meq in 1, 000 mls @ 75 mls/hr IV ASDIR ON LICENSE OF [facility] Lactobacillus Acidophilus (Bacid -) 1 tab PO DAILY ON LICENSE OF [facility] Last Admin: 11/04/17 13:05 Dose: 1 tab Nystatin/Triamcinolone Acetonide (Mycolog Ii Cream -) 1 applic TP BID ON LICENSE OF [facility] Last Admin: 11/04/17 22:50 Dose: 1 applic Oxycodone HCl (Roxicodone -) 5 mg PO Q6H PRN PRN Reason: PAIN Last Admin: 11/05/17 04:05 Dose: 5 mg Ranitidine HCl (Zantac -) 150 mg PO DAILY ON LICENSE OF [facility] Last Admin: 11/04/17 13:05 Dose: 150 mg - Objective Vital Signs: Vital Signs Temperature 98.3 F 11/05/17 06:00 Pulse Rate 84 11/05/17 06:00 Respiratory Rate 19 11/05/17 06:00 Blood Pressure 110/43 11/05/17 06:00 O2 Sat by Pulse Oximetry (%) 96 11/05/17 06:00 Constitutional: Yes: No Distress, Calm Neck: Yes: Supple Cardiovascular: Yes: Regular Rate and Rhythm Respiratory: Yes: Regular, Diminished Gastrointestinal: Yes: Normal Bowel Sounds, Soft Edema: No Labs: CBC, BMP 11/05/17 07:30 11/05/17 07:30 INR, PTT INR 1.11 (0.82-1.09) D 11/04/17 07:30 - ....Imaging Cat Scan: Report Reviewed (right hip inflammatory stranding vs infection) Problem List - Problems (1) HTN (hypertension) Code(s): I10 - ESSENTIAL (PRIMARY) HYPERTENSION Qualifiers: Hypertension type: essential hypertension Qualified Code(s): I10 - Essential (primary) hypertension (2) Leukocytosis Code(s): D72.829 - ELEVATED WHITE BLOOD CELL COUNT, UNSPECIFIED Qualifiers: Leukocytosis type: unspecified Qualified Code(s): D72.829 - Elevated white blood cell count, unspecified (3) Right hip pain Code(s): M25.551 - PAIN IN RIGHT HIP (4) Sepsis Code(s): A41.9 - SEPSIS, UNSPECIFIED ORGANISM Qualifiers: Sepsis type: sepsis due to unspecified organism Qualified Code(s): A41.9 - Sepsis, unspecified organism (5) Thrombocytopenia Code(s): D69.6 - THROMBOCYTOPENIA, UNSPECIFIED Assessment/Plan 11/04/2017 SOPHIA: Normal LV size and fxn, mild MR, TR, AR, no valvular vegetations or PILAR thrombus 1. Fever/leukocytosis/thrombocytopenia referable to MSSA bacteremia/sepsis, ruled out for endocarditis, possible infected R THR 2. HTN/HCVD 3. Right hip pain s/p THR PLAN: 1. Ancef coverage with follow-up surveillance cultures 2. SOPHIA negative for vegetations. 3. Continue Vasotec 10 mg qd 4. Plan for I&D right hip per ortho
[2017-11-05] MEDS: ENALAPRIL MALEATE 10 MG TABLET (FP) PO SCH (09:57)
[2017-11-05] MEDS: NYSTATIN/TRIAMCINOLONE TOPICAL CREAM 15 GM TUBE TP SCH ×2 (09:57→21:31)
[2017-11-05] MEDS: LACTOBACILLUS ACIDOPHILUS 1 EACH TAB (FP) PO SCH (09:58)
[2017-11-05] MEDS: HEPARIN NA (PORCINE) 5,000 UNITS/ML 1ML VIAL SQ SCH ×2 (09:58→21:31)
[2017-11-05] MEDS: D5-NS + 40 MEQ KCL - 40 MEQ/1,000 ML INFUS.BAG IV SCH (09:58)
[2017-11-05] MEDS: RANITIDINE HCL 150 MG TABLET (FP) PO SCH (09:59)
[2017-11-05] MEDS ORDERED: ceFAZolin SODIUM 1 GM VIAL ONE ×3 (15:22→18:14)
[2017-11-05] MEDS ORDERED: VANCOMYCIN 1,000 MG VIAL (RESTRICTED TO ID ONLY) ONE ×2 (15:23→17:57)
[2017-11-05] MEDS ORDERED: MIDAZOLAM HCL 2 MG/2 ML SINGLE DOSE VIAL ONE (15:38)
[2017-11-05] MEDS ORDERED: BUPIVACAINE HCL/PF 0.5% (5MG/ML) 10 ML VIAL ONE (15:39)
[2017-11-05] MEDS ORDERED: KETAMINE HCL 200 MG/20 ML VIAL ONE (16:41)
[2017-11-05] MEDS ORDERED: ROCURONIUM BROMIDE 50 MG/5 ML VIAL ONE (16:55)
[2017-11-05] MEDS ORDERED: SUCCINYLCHOLINE CHLORIDE 200 MG/10 ML VIAL ONE (16:57)
[2017-11-05] MEDS ORDERED: ONDANSETRON 4 MG/2 ML VIAL ONE (17:13)
[2017-11-05] MEDS ORDERED: PHENYLEPHRINE HCL 10 MG/1 ML SINGLE DOSE VIAL ONE (17:13)
[2017-11-05] MEDS ORDERED: SODIUM CHLORIDE 0.9% P/F 10 ML VIAL IJ ONE (17:13)
[2017-11-05] MEDS ORDERED: DEXAMETHASONE SOD PHOSPHATE 4 MG/1 ML VIAL ONE (17:13)
[2017-11-05] MEDS ORDERED: LIDOCAINE HCL 2% JELLY (5 ML/TUBE) ONE (17:13)
[2017-11-05] MEDS ORDERED: HYDROmorphone HCL/PF 1 MG/ML VIAL (FOR PYXIS CHARGING ONLY) ONE (17:27)
[2017-11-05] MEDS ORDERED: GLYCOPYRROLATE 0.2 MG/1 ML VIAL ONE (18:16)
[2017-11-05] MEDS ORDERED: NEOSTIGMINE METHYLSULFATE 0.5 MG/ML - 10 ML MDV ONE (18:16)
--- NOTE | 2017-11-05 18:34 | OP ---
Operative Note - Note: Operative Date: 11/05/17 (tiffany) Pre-Operative Diagnosis: right septic THR Operation: right hip arthrotomy, I & D, revision THR Post-Operative Diagnosis: Same as Pre-op Surgeon: Frantz Bhatia Ehr Trainer: Nlado Currie Anesthesiologist/BUTADIENE CONVERTOR OPERATOR: Maciel Davis Anesthesia: General, Local Specimens Removed: drainage, femoral head and acetabular liner Estimated Blood Loss (mls): 50 Operative Report Dictated: Yes
[2017-11-05] MEDS ORDERED: HYDROmorphone HCL CARPU-JECT 1 MG/1 ML DISP.SYRIN ONE (18:51)
[2017-11-05] MEDS ORDERED: ONDANSETRON 4 MG/2 ML VIAL IVPUSH PRN (18:54)
[2017-11-05] MEDS ORDERED: PROMETHAZINE HCL 25 MG/1 ML VIAL IVPUSH PRN (18:54)
[2017-11-05] MEDS: HYDROmorphone HCL CARPU-JECT 1 MG/1 ML DISP.SYRIN IVPUSH PRN ×4 (18:55→19:40)
[2017-11-05] MEDS ORDERED: PT OWN MED DRAWER 7, Y5N ONE (21:30)
[2017-11-06] MEDS: oxyCODONE HCL 5 MG TABLET PO PRN ×4 (02:14→21:14)
[2017-11-06] MEDS: CEFAZOLIN 2 GM/D5W 2 GM/50 ML ML IVPB SCH ×3 (02:14→17:41)
[2017-11-06] MEDS: ACETAMINOPHEN 325 MG TABLET (FP) PO PRN ×3 (02:17→17:00)
[2017-11-06 08:17] LABS: MCH 31.6 pg (25.7-33.7); MEAN CELL VOLUME 95.8 fl (80-96); MEAN PLT VOLUME 9.6 fl (7.5-11.1); PLATELET COUNT 319 K/MM3 (134-434); RDW 13.6 % (11.6-15.6); WHITE BLOOD COUNT 21.5 K/mm3 (4.0-10.8)
[2017-11-06] MEDS: D5-NS + 40 MEQ KCL - 40 MEQ/1,000 ML INFUS.BAG IV SCH (08:20)
[2017-11-06 08:32] LABS: ANION GAP 8 (8-16); CALCIUM 7.7 mg/dl (8.4-10.2); CO2 25 mmol/L (22-28); CREATININE 0.6 mg/dl (0.6-1.3); GLUCOSE,RANDOM 123 mg/dl (74-106)
[2017-11-06] MEDS ORDERED: morphine SULFATE 4 MG/ML VIAL IVPB PRN (08:34)
--- NOTE | 2017-11-06 08:37 | PN ---
Physical Exam: SUBJECTIVE: Patient seen and examined, sitting in bedside chair, denies any tactile fever, does reports pain to the right hip. OBJECTIVE:patient is a 77 y/o female with a past medical history of htn, admitted from the emergency dept for sepsis, MSSA bacteremia secondary to septic right hip. Vital Signs Period Temp Pulse Resp BP Sys/Singh Pulse Ox Last 24 Hr 97.7 F-99.9 F 68-87 16-18 97-139/37-65 94-97 GENERAL: The patient is awake, alert, and fully oriented, in no acute distress. HEAD: Normal with no signs of trauma. EYES: PERRL, extraocular movements intact, sclera anicteric, conjunctiva clear. No ptosis. ENT: Ears normal, nares patent, oropharynx clear without exudates, moist mucous membranes. NECK: Trachea midline, full range of motion, supple. LUNGS: Breath sounds equal, clear to auscultation bilaterally, no wheezes, no crackles, no accessory muscle use. HEART: Regular rate and rhythm, S1, S2 without murmur, rub or gallop. ABDOMEN: Soft, nontender, nondistended, normoactive bowel sounds, no guarding, no rebound, no hepatosplenomegaly, no masses. EXTREMITIES: 2+ pulses, warm, well-perfused, no edema. RIGHT LOWER EXTREMITY: aguacel dressing intact, clean and dry, less than 3 second capillary refill, + 3 pedal pulse NEUROLOGICAL: Cranial nerves II through XII grossly intact. Normal speech, gait not observed. PSYCH: Normal mood, normal affect. SKIN: Warm, dry, normal turgor, no rashes or lesions noted Laboratory Results - last 24 hr 11/06/17 11/06/17 07:30 07:30 WBC 21.5 H RBC 3.22 L Hgb 10.2 L Hct 30.8 L MCV 95.8 MCH 31.6 MCHC 33.0 RDW 13.6 Plt Count 319 D MPV 9.6 Sodium 137 Potassium 4.4 D Chloride 104 Carbon Dioxide 25 Anion Gap 8 BUN 16 D Creatinine 0.6 Random Glucose 123 H Calcium 7.7 L Active Medications Generic Name Dose Route Start Last Admin Trade Name Freq PRN Reason Stop Dose Admin Acetaminophen 650 mg 10/30/17 13:03 11/06/17 02:17 Tylenol - PO 650 mg Q4H PRN Administration FEVER OR PAIN LEVEL 1-5 Aspirin 325 mg 11/06/17 08:00 Asa - PO DAILY@0800 [facility] Enalapril Maleate 10 mg 11/01/17 10:00 11/05/17 09:57 Vasotec - PO 10 mg DAILY DENY Administration Fentanyl 50 mcg 11/05/17 18:54 Sublimaze Injection - IVPUSH [id number] PRN PAIN Heparin Sodium (Porcine) 5,000 unit 10/30/17 22:00 11/05/17 21:31 Heparin - SQ 5,000 unit BID DENY Administration Cefazolin Sodium/Dextrose 2 gm in 50 mls @ 100 mls/hr 11/04/17 13:30 02:14 Ancef 2 Gm Premixed Ivpb - IVPB 100 mls/hr Q8H-IV DENY Administration Dextrose/Sodium Chloride 40 meq in 1,000 mls @ 75 mls/hr 11/05/17 08:45 11/05 09:58 Dextrose 5%-Normal Saline+40 Meq Kcl - IV 75 mls/hr ASDIR DENY Administration Lactobacillus Acidophilus 1 tab 11/04/17 10:00 11/05/17 09:58 Bacid - PO 1 tab DAILY DENY Administration Morphine Sulfate 4 mg 11/06/17 08:34 Morphine Injection - IVPB Q6H PRN PAIN LEVEL 6-10 Nystatin/Triamcinolone Acetonide 1 applic 11/04/17 10:00 11/05/17 21:31 Mycolog Ii Cream - TP 1 applic BID DENY Administration Ondansetron HCl 4 mg 11/05/17 18:54 Zofran Injection IVPUSH Q6H PRN NAUSEA AND/OR VOMITING Oxycodone HCl 5 mg 11/06/17 08:35 Roxicodone - PO Q4H PRN PAIN LEVEL 6-10 Promethazine HCl 12.5 mg 11/05/17 18:54 Phenergan Injection - IVPUSH Q6H PRN NAUSEA-FOR RESCUE AFTER 15 MIN Ranitidine HCl 150 mg 10/31/17 10:00 11/05/17 09:59 Zantac - PO 150 mg DAILY DENY Administration Microbiology 11/05/17 09:30 Blood - Peripheral Venous Blood Culture - Preliminary NO GROWTH OBTAINED AFTER 24 HOURS, INCUBATION TO CONTINUE FOR 4 DAYS. 11/05/17 09:30 Blood - Peripheral Venous Blood Culture - Preliminary NO GROWTH OBTAINED AFTER 24 HOURS, INCUBATION TO CONTINUE FOR 4 DAYS. 11/02/17 06:00 Blood - Peripheral Venous Blood Culture - Final Staphylococcus Aureus 11/02/17 06:00 Blood - Peripheral Venous Blood Culture - Final Staphylococcus Aureus 10/31/17 09:10 Blood - Peripheral Venous Blood Culture - Final Presumptive Mssa (Pbp2a Neg) 10/31/17 09:30 Blood - Peripheral Venous Blood Culture - Final Staphylococcus Aureus 10/30/17 09:10 Blood - Peripheral Venous Blood Culture - Final Staphylococcus Aureus 10/30/17 09:05 Blood - Peripheral Venous Blood Culture - Preliminary Presumptive Mssa (Pbp2a Neg) 10/30/17 11:17 Urine - Urine Clean Catch Urine Culture - Final NO GROWTH OBTAINED 10/30/17 Unknown Nasopharyngeal Swab Influenza Types A,B Antigen ([facility]AR[facility]) - Final, negative 10/30/17 Unknown Nasopharyngeal Swab - Final IMAGING CT of pelvis: no fracture no dislocation noted, thickening and attenuation of right hip, ? joint effusion ct of right lower extremity (11/04) soft tissue stranding suspicious for inflammation vs infection Chest xray: no acute pathology SOPHIA no vegetation, ASSESSMENT/PLAN: 1. ID: Bacteremia - blood Cultures 10/31 MSSA; repeat 11/02, + staph aureus, 11/05 no growth, pending intraoperative wound cultures, continue ancef - leukocytosis noted, likely reactive pt is post op day 1, follow cbc, patient is afebrile - case discussed with Dr Bhatia, patient is pending OR today for I&D of right hip w/poly exchange 2. 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 CV: HTN - BP at goal - Continue Enalapril - Holding HCTZ in setting of sepsis 4. F/E/N - regular diet, d/c ivf - hypokalemia, resolved repleted 5. Ppx - zantac - asa - scd/bill * Dispo: Requires inpatient services. Visit type - Emergency Visit Emergency Visit: Yes ED Registration Date: 10/30/17 Care time: The patient presented to the Emergency Department on the above date and was hospitalized for further evaluation of their emergent condition. - New Patient This patient is new to me today: No - Critical Care Critical Care patient: No - Discharge Referral Referred to [facility] No
[2017-11-06] MEDS: ASPIRIN 325 MG TABLET PO SCH (09:53)
[2017-11-06] MEDS: HEPARIN NA (PORCINE) 5,000 UNITS/ML 1ML VIAL SQ SCH (09:54)
[2017-11-06] MEDS: LACTOBACILLUS ACIDOPHILUS 1 EACH TAB (FP) PO SCH (09:54)
[2017-11-06] MEDS: RANITIDINE HCL 150 MG TABLET (FP) PO SCH (09:54)
[2017-11-06] MEDS: ENALAPRIL MALEATE 10 MG TABLET (FP) PO SCH (09:54)
[2017-11-06] MEDS: NYSTATIN/TRIAMCINOLONE TOPICAL CREAM 15 GM TUBE TP SCH ×2 (10:00→21:13)
--- NOTE | 2017-11-06 10:31 | PN ---
Progress Note, Physician History of Present Illness: Awake, alert S/P I&D R hip Operative findings discussed with Dr Bhatia No c/o fever/ chills Repeat BC prelim no growth - Current Medication List Current Medications: Active Medications Acetaminophen (Tylenol -) 650 mg PO Q4H PRN PRN Reason: FEVER OR PAIN LEVEL 1-5 Last Admin: 11/06/17 09:53 Dose: 650 mg Aspirin (Asa -) 325 mg PO DAILY@0800 [facility] Last Admin: 11/06/17 09:53 Dose: 325 mg Enalapril Maleate (Vasotec -) 10 mg PO DAILY [facility] Last Admin: 11/06/17 09:54 Dose: 10 mg Fentanyl (Sublimaze Injection -) 50 mcg IVPUSH [id number] PRN PRN Reason: PAIN Heparin Sodium (Porcine) (Heparin -) 5,000 unit SQ BID [facility] Last Admin: 11/06/17 09:54 Dose: 5,000 unit Cefazolin Sodium/Dextrose (Ancef 2 Gm Premixed Ivpb -) 2 gm in 50 mls @ 100 mls /hr IVPB Q8H-IV [facility] Last Admin: 11/06/17 02:14 Dose: 100 mls/hr Dextrose/Sodium Chloride (Dextrose 5%-Normal Saline+40 Meq Kcl -) 40 meq in 1, 000 mls @ 75 mls/hr IV ASDIR [facility] Last Admin: 11/05/17 09:58 Dose: 75 mls/hr Lactobacillus Acidophilus (Bacid -) 1 tab PO DAILY [facility] Last Admin: 11/06/17 09:54 Dose: 1 tab Morphine Sulfate (Morphine Sulfate) 4 mg IVPB Q6H PRN PRN Reason: PAIN LEVEL 6-10 Nystatin/Triamcinolone Acetonide (Mycolog Ii Cream -) 1 applic TP BID [facility] Last Admin: 11/05/17 21:31 Dose: 1 applic Ondansetron HCl (Zofran Injection) 4 mg IVPUSH Q6H PRN PRN Reason: NAUSEA AND/OR VOMITING Oxycodone HCl (Roxicodone -) 5 mg PO Q4H PRN PRN Reason: PAIN LEVEL 6-10 Last Admin: 11/06/17 09:53 Dose: 5 mg Promethazine HCl (Phenergan Injection -) 12.5 mg IVPUSH Q6H PRN PRN Reason: NAUSEA-FOR RESCUE AFTER 15 MIN Ranitidine HCl (Zantac -) 150 mg PO DAILY [facility]Y Last Admin: 11/06/17 09:54 Dose: 150 mg - Objective Vital Signs: Vital Signs Temperature 98.0 F 11/06/17 06:00 Pulse Rate 79 11/06/17 06:00 Respiratory Rate 18 11/06/17 09:00 Blood Pressure 112/65 11/06/17 06:00 O2 Sat by Pulse Oximetry (%) 94 L 11/06/17 09:00 Constitutional: Yes: No Distress Eyes: Yes: Conjunctiva Clear Neck: Yes: Supple Cardiovascular: Yes: Regular Rate and Rhythm, S1 Respiratory: Yes: CTA Bilaterally Gastrointestinal: Yes: Normal Bowel Sounds, Soft. No: Tenderness Musculoskeletal: Yes: Other (Post op dressing R hip) Labs: CBC, BMP 11/06/17 07:30 11/06/17 07:30 INR, PTT INR 1.11 (0.82-1.09) D 11/04/17 07:30 Assessment/Plan Staph bacteremia/ sepsis S/P I&D R hip Continue cefazolin Check repeat BC Will need PICC for retirement (6w) antibiotic therapy
--- NOTE | 2017-11-06 11:16 | PN ---
Progress Note (short form) - Note Progress Note: 77F POD1 s/p I and D hip under spinal anesthetic. Pt states that pain is well controlled, reports no anesthetic complications. Sensory and motor function intact in bilateral lower extremities.
--- NOTE | 2017-11-06 11:16 | PN ---
Progress Note (short form) - Note Progress Note: Ortho Pt seen and examined- s/p right hip I & D, revision THR pod #1 Selected Entries 11/06/17 10:30 Temperature 98.4 F Pulse Rate 71 Respiratory 18 Rate Blood Pressure 106/50 Laboratory Tests 11/06/17 07:30 WBC 21.5 H Hgb 10.2 L Hct 30.8 L Plt Count 319 D dressing c/d/i, calf soft, nt nvi a/p- IV abx as per ID for PICC line PT wbat dvt ppx pain control will follow
[2017-11-06] MEDS ORDERED: PICC LINE 8 ML FLUSH PROTOCOL IVPUSH PRN (11:17)
--- NOTE | 2017-11-06 18:37 | PN ---
Progress Note, Physician History of Present Illness: Afebrile, s/p right hip I & D, revision THR pod #1 under spinal. Pain adequately controlled. - Current Medication List Current Medications: Active Medications Acetaminophen (Tylenol -) 650 mg PO Q4H PRN PRN Reason: FEVER OR PAIN LEVEL 1-5 Last Admin: 11/06/17 17:00 Dose: 650 mg Aspirin (Asa -) 325 mg PO DAILY@0800 [facility] Last Admin: 11/06/17 09:53 Dose: 325 mg Enalapril Maleate (Vasotec -) 10 mg PO DAILY [facility] Last Admin: 11/06/17 09:54 Dose: 10 mg Fentanyl (Sublimaze Injection -) 50 mcg IVPUSH [id number] PRN PRN Reason: PAIN IV Flush (Picc Line Flush) 8 ml IVPUSH PRN PRN PRN Reason: Protocol Cefazolin Sodium/Dextrose (Ancef 2 Gm Premixed Ivpb -) 2 gm in 50 mls @ 100 mls /hr IVPB Q8H-IV [facility] Last Admin: 11/06/17 17:41 Dose: 100 mls/hr Lactobacillus Acidophilus (Bacid -) 1 tab PO DAILY [facility] Last Admin: 11/06/17 09:54 Dose: 1 tab Morphine Sulfate (Morphine Sulfate) 4 mg IVPB Q6H PRN PRN Reason: PAIN LEVEL 6-10 Nystatin/Triamcinolone Acetonide (Mycolog Ii Cream -) 1 applic TP BID [facility] Last Admin: 11/06/17 10:00 Dose: 1 applic Ondansetron HCl (Zofran Injection) 4 mg IVPUSH Q6H PRN PRN Reason: NAUSEA AND/OR VOMITING Oxycodone HCl (Roxicodone -) 5 mg PO Q4H PRN PRN Reason: PAIN LEVEL 6-10 Last Admin: 11/06/17 17:00 Dose: 5 mg Promethazine HCl (Phenergan Injection -) 12.5 mg IVPUSH Q6H PRN PRN Reason: NAUSEA-FOR RESCUE AFTER 15 MIN Ranitidine HCl (Zantac -) 150 mg PO DAILY [facility] Last Admin: 11/06/17 09:54 Dose: 150 mg - Objective Vital Signs: Vital Signs Temperature 99.0 F 11/06/17 14:09 Pulse Rate 86 12/20/17 14:09 Respiratory Rate 18 11/06/17 14:09 Blood Pressure 101/45 11/06/17 14:09 O2 Sat by Pulse Oximetry (%) 98 11/06/17 14:09 Constitutional: Yes: No Distress, Calm Neck: Yes: Supple Cardiovascular: Yes: Regular Rate and Rhythm Respiratory: Yes: Regular, Diminished Gastrointestinal: Yes: Normal Bowel Sounds, Soft Edema: No Labs: CBC, BMP 11/06/17 07:30 11/06/17 07:30 INR, PTT INR 1.11 (0.82-1.09) D 11/04/17 07:30 Problem List - Problems (1) HTN (hypertension) Code(s): I10 - ESSENTIAL (PRIMARY) HYPERTENSION Qualifiers: Hypertension type: essential hypertension Qualified Code(s): I10 - Essential (primary) hypertension (2) Leukocytosis Code(s): D72.829 - ELEVATED WHITE BLOOD CELL COUNT, UNSPECIFIED Qualifiers: Leukocytosis type: unspecified Qualified Code(s): D72.829 - Elevated white blood cell count, unspecified (3) Right hip pain Code(s): M25.551 - PAIN IN RIGHT HIP (4) Sepsis Code(s): A41.9 - SEPSIS, UNSPECIFIED ORGANISM Qualifiers: Sepsis type: sepsis due to unspecified organism Qualified Code(s): A41.9 - Sepsis, unspecified organism Assessment/Plan 11/04/2017 SOPHIA: Normal LV size and fxn, mild MR, TR, AR, no valvular vegetations or PILAR thrombus 1. Fever/leukocytosis referable to MSSA bacteremia/sepsis, ruled out for endocarditis, right septic THR s/p right hip I & D, revision THR pod #1 2. HTN/HCVD 3. Right hip pain s/p THR PLAN: 1. Ancef coverage with follow-up surveillance cultures, will need PICC for care home (6w) antibiotic therapy 2. SOPHIA negative for vegetations. 3. Continue Vasotec 10 mg qd 4. Post-op recommendations, analgesia as needed, DVT and GI prophylaxis
--- NOTE | 2017-11-06 22:43 | HOSP ---
Subjective - Review of Symptoms Events since last encounter: Pt with episode chest pressure as per nurse. Subjective: Pt reports episode of chest tightness, denies pain. Spontaneously resolved. Pulmonary: No: Dyspnea, Cough, Pleuritic Chest Pain Cardiovascular: Yes: Chest Pain Physical Examination Vital Signs: Vital Signs Temperature 99.0 F 11/06/17 14:09 Pulse Rate 86 11/06/17 14:09 Respiratory Rate 18 11/06/17 20:04 Blood Pressure 101/45 11/06/17 14:09 O2 Sat by Pulse Oximetry (%) 98 11/06/17 20:04 Constitutional: Yes: Well Nourished, No Distress Cardiovascular: Yes: Regular Rate and Rhythm Respiratory: Yes: CTA Bilaterally Gastrointestinal: Yes: Normal Bowel Sounds, Soft, Hyperactive Bowel Sounds Labs: CBC, BMP 11/06/17 07:30 11/06/17 07:30 Hospitalist Encounter Assessment: chest pressure - ecg done, no changes, appears improved from previous - troponin ordered, trend - cont on tele monitoring - cardiology to weigh in tomorrow.
[2017-11-06 23:41] LABS: TROPONIN I (DFP) 0.03 ng/ml (0.03-0.50)
[2017-11-07] MEDS: CEFAZOLIN 2 GM/D5W 2 GM/50 ML ML IVPB SCH ×3 (01:03→19:00)
--- NOTE | 2017-11-07 08:42 | PN ---
Progress Note (short form) - Note Progress Note: Ortho Pt seen and examined- s/p right hip I & D, revision THR pod #2, able to move hip more and was able to some PT yesterday Selected Entries 11/07/17 08:36 Temperature 98.6 F Pulse Rate 95 H Respiratory 18 Rate Blood Pressure 143/50 dressing c/d/i, incr rom,calf soft, nt nvi cbc pending cultures pending a/p- IV abx as per ID for PICC line PT wbat dvt ppx pain control will follow
[2017-11-07 09:00] LABS: MCH 32.3 pg (25.7-33.7); MCHC 34.1 g/dl (32.0-36.0); MEAN CELL VOLUME 94.8 fl (80-96); MEAN PLT VOLUME 9.8 fl (7.5-11.1); PLATELET COUNT 357 K/MM3 (134-434); RDW 13.6 % (11.6-15.6); WHITE BLOOD COUNT 24.3 K/mm3 (4.0-10.8)
[2017-11-07] MEDS: ASPIRIN 325 MG TABLET PO SCH (09:04)
[2017-11-07] MEDS: oxyCODONE HCL 5 MG TABLET PO PRN ×2 (09:05→17:30)
[2017-11-07] MEDS: ACETAMINOPHEN 325 MG TABLET (FP) PO PRN ×2 (09:05→23:13)
[2017-11-07 09:06] LABS: PLATELET ESTIMATE ADEQUATE
[2017-11-07 09:08] LABS: ANION GAP 7 (8-16); CALCIUM 7.5 mg/dl (8.4-10.2); CO2 24 mmol/L (22-28); CREATININE 0.4 mg/dl (0.6-1.3); GLUCOSE,RANDOM 112 mg/dl (74-106); PHOSPHOROUS 3.5 mg/dl (2.5-4.6)
[2017-11-07] MEDS: ENALAPRIL MALEATE 10 MG TABLET (FP) PO SCH (09:28)
[2017-11-07] MEDS: RANITIDINE HCL 150 MG TABLET (FP) PO SCH (09:28)
[2017-11-07] MEDS: LACTOBACILLUS ACIDOPHILUS 1 EACH TAB (FP) PO SCH (09:28)
[2017-11-07] MEDS: NYSTATIN/TRIAMCINOLONE TOPICAL CREAM 15 GM TUBE TP SCH ×2 (09:29→21:18)
--- NOTE | 2017-11-07 09:29 | PN ---
Progress Note, Physician History of Present Illness: Awake, alert. Supine in bed. S/P I&D R hip. C/O R hip pain with movement No c/o fever/ chills. WBC increasing Repeat BC (11/05) no growth Operative c/s pending - Current Medication List Current Medications: Active Medications Acetaminophen (Tylenol -) 650 mg PO Q4H PRN PRN Reason: FEVER OR PAIN LEVEL 1-5 Last Admin: 11/07/17 09:05 Dose: 650 mg Aspirin (Asa -) 325 mg PO DAILY@0800 [facility] Last Admin: 11/07/17 09:04 Dose: 325 mg Enalapril Maleate (Vasotec -) 10 mg PO DAILY [facility] Last Admin: 11/06/17 09:54 Dose: 10 mg Fentanyl (Sublimaze Injection -) 50 mcg IVPUSH [id number] PRN PRN Reason: PAIN IV Flush (Picc Line Flush) 8 ml IVPUSH PRN PRN PRN Reason: Protocol Cefazolin Sodium/Dextrose (Ancef 2 Gm Premixed Ivpb -) 2 gm in 50 mls @ 100 mls /hr IVPB Q8H-IV [facility] Last Admin: 11/07/17 01:03 Dose: 100 mls/hr Lactobacillus Acidophilus (Bacid -) 1 tab PO DAILY [facility] Last Admin: 11/06/17 09:54 Dose: 1 tab Morphine Sulfate (Morphine Sulfate) 4 mg IVPB Q6H PRN PRN Reason: PAIN LEVEL 6-10 Nystatin/Triamcinolone Acetonide (Mycolog Ii Cream -) 1 applic TP BID [facility] Last Admin: 11/06/17 21:13 Dose: 1 applic Ondansetron HCl (Zofran Injection) 4 mg IVPUSH Q6H PRN PRN Reason: NAUSEA AND/OR VOMITING Oxycodone HCl (Roxicodone -) 5 mg PO Q4H PRN PRN Reason: PAIN LEVEL 6-10 Last Admin: 11/07/17 09:05 Dose: 5 mg Promethazine HCl (Phenergan Injection -) 12.5 mg IVPUSH Q6H PRN PRN Reason: NAUSEA-FOR RESCUE AFTER 15 MIN Ranitidine HCl (Zantac -) 150 mg PO DAILY [facility] Last Admin: 11/06/17 09:54 Dose: 150 mg - Objective Vital Signs: Vital Signs Temperature 98.6 F 11/07/17 08:36 Pulse Rate 95 H 11/07/17 08:36 Respiratory Rate 18 11/07/17 08:37 Blood Pressure 143/50 11/07/17 08:36 O2 Sat by Pulse Oximetry (%) 98 11/07/17 08:37 Constitutional: Yes: No Distress Eyes: Yes: Conjunctiva Clear Cardiovascular: Yes: Regular Rate and Rhythm, S1, S2 Respiratory: Yes: CTA Bilaterally Gastrointestinal: Yes: Normal Bowel Sounds, Soft. 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
--- NOTE | 2017-11-07 10:06 | OP ---
DATE OF OPERATION: 11/05/2017 PREOPERATIVE DIAGNOSIS: Septic right total hip replacement. POSTOPERATIVE DIAGNOSIS: Septic right total hip replacement. PROCEDURE: Right hip exploration, irrigation, debridement and revision of head and acetabular liner. SURGICAL ATTENDING: Frantz Bhatia MD CUSTOM DRESSMAKER: DANIELA Polk ANESTHESIA: Regional and general. CLOSURE: A DePuy +9, 32-mm head with a polyethylene liner with a 10-degree lip; No. 1 PDS for fascia; 0 and 2-0 Vicryl for subcutaneous; and marcello for skin. ESTIMATED BLOOD LOSS: Approximately 200 mL. COMPLICATIONS: None. CONDITION: To recovery in stable condition. DESCRIPTION OF OPERATIVE PROCEDURE: Patient was taken to the operating room on November 05, 2017. Regional and general anesthesia was administered by the anesthesiologist. No antibiotics were given as patient was already getting antibiotics on the floor. TXA was given prophylactically prior to the case. Patient was placed in the lateral decubitus position with all prominences well padded. The right hip area was prepped and draped in the usual sterile fashion. The posterior approach to the hip was utilized. We used the previous incision from the index surgery which was 10 years prior to gain access to the hip. Sharp dissection was carried down through the subcutaneous down to the fascia. A lot of edema fluid was in the fascia but no purulence in the subcutaneous. The fascia was opened, spreading the gluteus kalia fibers in the direction of origin. Charnley retractor was placed in this layer. Again, some edema fluid was encountered in this layer but no purulence. There was a lot of scar tissue. This was freed up in order to gain access to the hip. The capsule was opened. Soon as capsule was open, purulent fluid was seen. This was immediately cultured and then suctioned until dry. A posterior capsulectomy was performed to gain access to the hip joint. The head was then dislocated. There was found to be a [id number] component. There was no metallosis present anywhere. The head was disengaged from the trunnion. Tapping the acetabular rim caused the [place] taper from the metal insert in the acetabulum to become undone and was then removed. The hip area was then irrigated with about 9 L of antibiotic irrigation fluid and the fibrous tissue encountered was debrided. Remaining was just healthy tissue surrounding the entire capsule which was left in situ. As a +8.5 head was used on the index procedure, a +9, 32-mm head was used here as well as a polyethylene liner with a 10-degree lip in the superior-posterior quadrant. The head was cold welded to the trunnion and the polyethylene was clipped into the acetabulum. The hip was reduced. Range of motion was found to be good with excellent stability throughout. Vancomycin powder was distributed into the joint. The fascia was then closed using No. 1 PDS suture, 0 and 2-0 for subcutaneous, and marcello for skin. A sterile pressure dressing was applied. Patient was then placed in the supine position. Bilateral SCDs and abduction pillow were applied. Patient was awakened and transferred to the recovery room. At the end of the case, the patient was given antibiotics. Jaime [id number]
[2017-11-07 10:29] LABS: TROPONIN I (DFP) 0.03 ng/ml (0.03-0.50)
--- NOTE | 2017-11-07 11:34 | PN ---
Physical Exam: SUBJECTIVE: Patient seen and examined, reports some pain upon movement to the right hip. OBJECTIVE:patient is a 77 y/o female with a past medical history of htn, admitted from the emergency dept for sepsis, MSSA bacteremia secondary to septic right hip, patient is s/p right hip I&D POD #2 Vital Signs Period Temp Pulse Resp BP Sys/Singh Pulse Ox Last 24 Hr 98.5 F-99.1 F 86-97 18-18 101-143/42-50 98-100 GENERAL: The patient is awake, alert, and fully oriented, in no acute distress. HEAD: Normal with no signs of trauma. EYES: PERRL, extraocular movements intact, sclera anicteric, conjunctiva clear. No ptosis. ENT: Ears normal, nares patent, oropharynx clear without exudates, moist mucous membranes. NECK: Trachea midline, full range of motion, supple. LUNGS: Breath sounds equal, clear to auscultation bilaterally, no wheezes, no crackles, no accessory muscle use. HEART: Regular rate and rhythm, S1, S2 without murmur, rub or gallop. ABDOMEN: Soft, nontender, nondistended, normoactive bowel sounds, no guarding, no rebound, no hepatosplenomegaly, no masses. EXTREMITIES: 2+ pulses, warm, well-perfused, no edema. RIGHT LOWER EXTREMITY: aguacel dressing, CDI, less than 3 second capillary refill, +3 pedal pulse NEUROLOGICAL: Cranial nerves II through XII grossly intact. Normal speech, gait not observed. PSYCH: Normal mood, normal affect. SKIN: Warm, dry, normal turgor, no rashes or lesions noted Laboratory Results - last 24 hr 11/06/17 11/07/17 11/07/17 22:00 07:30 07:30 WBC 24.3 H RBC 3.04 L Hgb 9.8 L Hct 28.9 L MCV 94.8 MCH 32.3 MCHC 34.1 RDW 13.6 Plt Count 357 MPV 9.8 Neutrophils % No Result Required. Neutrophils % (Manual) 83.0 H Band Neutrophils % 3.0 Lymphocytes % No Result Required. Lymphocytes % (Manual) 10.0 D Monocytes % (Manual) 3 L Eosinophils % (Manual) 1.0 Platelet Estimate Adequate Sodium 137 Potassium 4.5 Chloride 106 Carbon Dioxide 24 Anion Gap 7 L BUN 15 Creatinine 0.4 L D Random Glucose 112 H Calcium 7.5 L Phosphorus 3.5 D Magnesium 2.0 Creatine Kinase 214 H Creatine Kinase Index 3.1 CK-MB (CK-2) 6.7 H Troponin I 0.03 11/07/17 07:30 WBC RBC Hgb Hct MCV MCH MCHC RDW Plt Count MPV Neutrophils % Neutrophils % (Manual) Band Neutrophils % Lymphocytes % Lymphocytes % (Manual) Monocytes % (Manual) Eosinophils % (Manual) Platelet Estimate Sodium Potassium Chloride Carbon Dioxide Anion Gap BUN Creatinine Random Glucose Calcium Phosphorus Magnesium Creatine Kinase 179 Creatine Kinase Index 2.1 CK-MB (CK-2) 3.8 Troponin I 0.03 Active Medications Generic Name Dose Route Start Last Admin Trade Name Freq PRN Reason Stop Dose Admin Acetaminophen 650 mg 10/30/17 13:03 11/07/17 09:05 Tylenol - PO 650 mg Q4H PRN Administration FEVER OR PAIN LEVEL 1-5 Aspirin 325 mg 11/06/17 08:00 11/07/17 09:04 Asa - PO 325 mg DAILY@0800 DENY Administration Enalapril Maleate 10 mg 11/01/17 10:00 11/07/17 09:28 Vasotec - PO 10 mg DAILY DENY Administration Fentanyl 50 mcg 11/05/17 18:54 Sublimaze Injection - IVPUSH [id number] PRN PAIN IV Flush 8 ml 11/06/17 11:17 Picc Line Flush IVPUSH PRN PRN Protocol Cefazolin Sodium/Dextrose 2 gm in 50 mls @ 100 mls/hr 11/04/17 13:30 09:28 Ancef 2 Gm Premixed Ivpb - IVPB 100 mls/hr Q8H-IV DENY Administration Lactobacillus Acidophilus 1 tab 11/04/17 10:00 11/07/17 09:28 Bacid - PO 1 tab DAILY DENY Administration Morphine Sulfate 4 mg 11/06/17 08:34 Morphine Sulfate IVPB Q6H PRN PAIN LEVEL 6-10 Nystatin/Triamcinolone Acetonide 1 applic 11/04/17 10:00 11/07/17 09:29 Mycolog Ii Cream - TP 1 applic BID DENY Administration Ondansetron HCl 4 mg 11/05/17 18:54 Zofran Injection IVPUSH Q6H PRN NAUSEA AND/OR VOMITING Oxycodone HCl 5 mg 11/06/17 08:35 11/07/17 09:05 Roxicodone - PO 5 mg Q4H PRN Administration PAIN LEVEL 6-10 Promethazine HCl 12.5 mg 11/05/17 18:54 Phenergan Injection - IVPUSH Q6H PRN NAUSEA-FOR RESCUE AFTER 15 MIN Ranitidine HCl 150 mg 10/31/17 10:00 11/07/17 09:28 Zantac - PO 150 mg DAILY DENY Administration Microbiology 11/05/17 17:25 Hip - Right Wound Culture - Preliminary 11/05/17 17:25 Hip - Right Wound Culture - Preliminary Staphylococcus Latex Coag Pos 10/30/17 09:05 Blood - Peripheral Venous Blood Culture - Final Staphylococcus Aureus 11/05/17 09:30 Blood - Peripheral Venous Blood Culture - Preliminary NO GROWTH OBTAINED AFTER 48 HOURS, INCUBATION TO CONTINUE FOR 3 DAYS. 11/05/17 09:30 Blood - Peripheral Venous Blood Culture - Preliminary NO GROWTH OBTAINED AFTER 48 HOURS, INCUBATION TO CONTINUE FOR 3 DAYS. 11/02/17 06:00 Blood - Peripheral Venous Blood Culture - Final Staphylococcus Aureus 11/02/17 06:00 Blood - Peripheral Venous Blood Culture - Final Staphylococcus Aureus 10/31/17 09:10 Blood - Peripheral Venous Blood Culture - Final Presumptive Mssa (Pbp2a Neg) 10/31/17 09:30 Blood - Peripheral Venous Blood Culture - Final Staphylococcus Aureus 10/30/17 09:10 Blood - Peripheral Venous Blood Culture - Final Staphylococcus Aureus 10/30/17 11:17 Urine - Urine Clean Catch Urine Culture - Final NO GROWTH OBTAINED 10/30/17 Unknown Nasopharyngeal Swab Influenza Types A,B Antigen (SARAH) - Final 10/30/17 Unknown Nasopharyngeal Swab - Final IMAGING CT of pelvis: no fracture no dislocation noted, thickening and attenuation of right hip, ? joint effusion ct of right lower extremity (11/04) soft tissue stranding suspicious for inflammation vs infection Chest xray: no acute pathology SOPHIA no vegetation, ASSESSMENT/PLAN: 1. ID: Bacteremia - blood Cultures 10/31 MSSA; repeat 11/02, + staph aureus, 11/05 no growth, intraoperative wound cultures, staph coag, continue ancef - leukocytosis noted, pt is afebrile, repeat cbc at 1500, close monitoring - pt will require 6 weeks of abx as per the recommendation of ID, PICC line placed today in IR 2. MS: right hip arthrotomy, I & D, revision THR, post op day 2 - reports adequate pain relief, continue Oxycodone 5mg po prn, morphine 4mg iv q6h - incentive spirometer - physical therapy as per orthopedist - Dr Bhatia consulted and following 3. CV: HTN - BP at goal - Continue Enalapril - Holding HCTZ in setting of sepsis 4. F/E/N - regular diet, d/c ivf 5. Ppx - zantac - asa - scd/bill lengthy discussion with patient and daughter (Breanna) both patient and Breanna requesting SNF for short term rehab, consulted with child welfare social worker awaiting SNF placment Dispo: Requires inpatient services. Visit type - Emergency Visit Emergency Visit: Yes ED Registration Date: 10/30/17 Care time: The patient presented to the Emergency Department on the above date and was hospitalized for further evaluation of their emergent condition. - New Patient This patient is new to me today: No - Critical Care Critical Care patient: No - Discharge Referral Referred to [facility] No
[2017-11-07 16:53] LABS: WHITE BLOOD COUNT 24.9 K/mm3 (4.0-10.8)
[2017-11-07 16:54] LABS: MCH 31.4 pg (25.7-33.7); MCHC 33.1 g/dl (32.0-36.0); MEAN CELL VOLUME 94.7 fl (80-96); MEAN PLT VOLUME 9.8 fl (7.5-11.1); PLATELET COUNT 387 K/MM3 (134-434); RDW 13.8 % (11.6-15.6)
[2017-11-07 16:55] LABS: BASO % 0.1 % (0-2.0); EOS % 1.3 % (0-4.5); NEUT % 87.6 % (42.8-82.8)
--- NOTE | 2017-11-07 19:36 | EKG ---
Test Reason : Blood Pressure : / mmHG Vent. Rate : 090 BPM Atrial Rate : 090 BPM P-R Int : 154 ms QRS Dur : 070 ms QT Int : 358 ms P-R-T Axes : 060 032 040 degrees QTc Int : 437 ms NORMAL SINUS RHYTHM LOW VOLTAGE QRS WHEN COMPARED WITH ECG OF 30-OCT-2017 10:02, NONSPECIFIC ST ABNORMALITY are no longer present in INFERIOR LEADS Confirmed by FIGUEROA OHARA MD ([id number]) on 11/07/2017 7:36:13 PM Referred By: DR. FULLER Confirmed By:FIGUEROA OHARA MD
[2017-11-08] MEDS: CEFAZOLIN 2 GM/D5W 2 GM/50 ML ML IVPB SCH ×3 (01:20→17:06)
--- NOTE | 2017-11-08 07:13 | PN ---
Progress Note (short form) - Note Progress Note: c/o R hip pain, pain at rest and worse on movement and hindering per participation with PT. denies CP, SOB, feveer, chills, N/V/C/D Current Medications Generic Name Dose Route Start Last Admin Trade Name Freq PRN Reason Stop Dose Admin Acetaminophen 650 mg 10/30/17 13:03 11/07/17 23:13 Tylenol - PO 650 mg Q4H PRN Administration FEVER OR PAIN LEVEL 1-5 Aspirin 325 mg 11/06/17 08:00 11/07/17 09:04 Asa - PO 325 mg DAILY@0800 DENY Administration Enalapril Maleate 10 mg 11/01/17 10:00 11/07/17 09:28 Vasotec - PO 10 mg DAILY [place]NEY Administration Fentanyl 50 mcg 11/05/17 18:54 Sublimaze Injection - IVPUSH [id number] PRN PAIN IV Flush 8 ml 11/06/17 11:17 Picc Line Flush IVPUSH PRN PRN Protocol Cefazolin Sodium/Dextrose 2 gm in 50 mls @ 100 mls/hr 11/04/17 13:30 01:20 Ancef 2 Gm Premixed Ivpb - IVPB 100 mls/hr Q8H-IV DENY Administration Lactobacillus Acidophilus 1 tab 11/04/17 10:00 11/07/17 09:28 Bacid - PO 1 tab DAILY DENY Administration Morphine Sulfate 4 mg 11/06/17 08:34 Morphine Sulfate IVPB Q6H PRN PAIN LEVEL 6-10 Nystatin/Triamcinolone Acetonide 1 applic 11/04/17 10:00 11/07/17 21:18 Mycolog Ii Cream - TP 1 applic BID DENY Administration Ondansetron HCl 4 mg 11/05/17 18:54 Zofran Injection IVPUSH Q6H PRN NAUSEA AND/OR VOMITING Oxycodone HCl 5 mg 11/06/17 08:35 11/07/17 17:30 Roxicodone - PO 5 mg Q4H PRN Administration PAIN LEVEL 6-10 Promethazine HCl 12.5 mg 11/05/17 18:54 Phenergan Injection - IVPUSH Q6H PRN NAUSEA-FOR RESCUE AFTER 15 MIN Ranitidine HCl 150 mg 10/31/17 10:00 11/07/17 09:28 Zantac - PO 150 mg DAILY DENY Administration Last Vital Signs Temp Pulse Resp BP Pulse Ox 98.0 F 99 H 20 116/61 99 11/08/17 06:02 11/08/17 06:02 11/08/17 06:02 11/08/17 06:02 11/08/17 06:02 General NAD CV S1 S2 RRR no murmur/rub/gallop Lungs decreased breath sounds bases Abdomen soft NT/ND Extremities R hip tenderness no pedal edema +RUE PICC A/P 77yo F with PMH HTN presented to the ER wtih R groin pain and found to be septic due to MSSA bacteremia and septic R hip joint 1. Sepsis due to MSSA bacteremia and infected R hip- s/p I&D and THR revision . continues to have pain. not requesting pain medications. encouraged to request medications as needed and prior to PT due to importance of ambulating and not being sedentary. on cefipime, will need 6 weeks abx. persistent bacteremia due to septic hip. echo negative for endocarditis. has uptrending leukocytosis likely atelectasis as pt not getting out of bed. only walking 40 ft with PT. would benefit from [facility] 2. Hypokalemia- resolved 3. HTN- controlled. cont acei 4. normocytic anemia- Hgb stable. no signs of bleeding. check iron studies. no indication for txn 5. DVT- full dose asa 6. pt has bed at [facility]. pending on repeat labs today will she be ready for discharge to [facility]. Visit type - Emergency Visit Emergency Visit: Yes ED Registration Date: 10/30/17 Care time: The patient presented to the Emergency Department on the above date and was hospitalized for further evaluation of their emergent condition. - New Patient This patient is new to me today: No - Critical Care Critical Care patient: No - Discharge Referral Referred to [facility] Med [facility].: No
--- NOTE | 2017-11-08 08:02 | PN ---
Progress Note (short form) - Note Progress Note: Ortho Pt seen and examined- s/p right hip I & D, revision THR pod #3- improving Selected Entries 11/07/17 08:36 Temperature 98.6 F Pulse Rate 95 H Respiratory 18 Rate Blood Pressure 143/50 dressing c/d/i, incr rom, able to ambulate with pain, calf soft, nt nvi cbc pending crp, esr pending a/p- IV abx as per ID PT wbat dvt ppx pain control d/c planning
--- NOTE | 2017-11-08 09:02 | PN ---
Progress Note, Physician History of Present Illness: Awake, alert. OOB in chair C/O low back pain secondary to being in bed S/P I&D R hip POD #3. No c/o R hip pain at rest No c/o fever/ chills. WBC pending Repeat BC (11/05, 11/07) no growth Operative c/s Staph aureus - Current Medication List Current Medications: Active Medications Acetaminophen (Tylenol -) 650 mg PO Q4H PRN PRN Reason: FEVER OR PAIN LEVEL 1-5 Last Admin: 11/07/17 23:13 Dose: 650 mg Aspirin (Asa -) 325 mg PO DAILY@0800 [facility] Last Admin: 11/07/17 09:04 Dose: 325 mg Enalapril Maleate (Vasotec -) 10 mg PO DAILY [facility] Last Admin: 11/07/17 09:28 Dose: 10 mg IV Flush (Picc Line Flush) 8 ml IVPUSH PRN PRN PRN Reason: Protocol Cefazolin Sodium/Dextrose (Ancef 2 Gm Premixed Ivpb -) 2 gm in 50 mls @ 100 mls /hr IVPB Q8H-IV [facility] Last Admin: 11/08/17 01:20 Dose: 100 mls/hr Lactobacillus Acidophilus (Bacid -) 1 tab PO DAILY [facility] Last Admin: 11/07/17 09:28 Dose: 1 tab Nystatin/Triamcinolone Acetonide (Mycolog Ii Cream -) 1 applic TP BID [facility] Last Admin: 11/07/17 21:18 Dose: 1 applic Ondansetron HCl (Zofran Injection) 4 mg IVPUSH Q6H PRN PRN Reason: NAUSEA AND/OR VOMITING Oxycodone HCl (Roxicodone -) 5 mg PO Q4H PRN PRN Reason: PAIN LEVEL 6-10 Last Admin: 11/07/17 17:30 Dose: 5 mg Ranitidine HCl (Zantac -) 150 mg PO DAILY [facility] Last Admin: 11/07/17 09:28 Dose: 150 mg - Objective Vital Signs: Vital Signs Temperature 98.0 F 11/08/17 06:02 Pulse Rate 99 H 11/08/17 06:02 Respiratory Rate 20 11/08/17 06:02 Blood Pressure 116/61 11/08/17 06:02 O2 Sat by Pulse Oximetry (%) 99 11/08/17 06:02 Constitutional: Yes: No Distress Eyes: Yes: Conjunctiva Clear Cardiovascular: Yes: Regular Rate and Rhythm, S1, S2 Respiratory: Yes: CTA Bilaterally Gastrointestinal: Yes: Normal Bowel Sounds, Soft. No: Tenderness Extremities: Yes: Other (mild R hip tenderness to palp) Labs: CBC, BMP 11/07/17 15:00 11/07/17 07:30 INR, PTT INR 1.11 (0.82-1.09) D 11/04/17 07:30 Assessment/Plan MSSA bacteremia/ sepsis Infected R THR s/p I&D Leukocytosis Continue cefazolin 2gm IVPB q8h. PICC inserted for outpatient antibiotic therapy ( 6 weeks ) Check repeat WBC, BC, ESR, CRP
[2017-11-08 10:41] LABS: MCH 31.2 pg (25.7-33.7); MCHC 33.2 g/dl (32.0-36.0); MEAN CELL VOLUME 94.1 fl (80-96); PLATELET COUNT 416 K/MM3 (134-434); WHITE BLOOD COUNT 22.4 K/mm3 (4.0-10.8)
[2017-11-08] MEDS: ACETAMINOPHEN 325 MG TABLET (FP) PO PRN (10:48)
[2017-11-08] MEDS: NYSTATIN/TRIAMCINOLONE TOPICAL CREAM 15 GM TUBE TP SCH ×2 (10:49→21:35)
[2017-11-08] MEDS: ASPIRIN 325 MG TABLET PO SCH (10:49)
[2017-11-08] MEDS: LACTOBACILLUS ACIDOPHILUS 1 EACH TAB (FP) PO SCH (10:49)
[2017-11-08] MEDS: ENALAPRIL MALEATE 10 MG TABLET (FP) PO SCH (10:50)
[2017-11-08] MEDS: oxyCODONE HCL 5 MG TABLET PO PRN (10:50)
[2017-11-08] MEDS: RANITIDINE HCL 150 MG TABLET (FP) PO SCH (10:51)
--- NOTE | 2017-11-08 11:23 | DS ---
Physical Exam: SUBJECTIVE: Patient seen and examined. pain is improved with pain medication. denies CP, SOB, fever, chills, N/V/C?d OBJECTIVE: Vital Signs Period Temp Pulse Resp BP Sys/Singh Pulse Ox Last 24 Hr 98.0 F-99.9 F 54-99 18-20 116-130/44-61 94-99 PHYSICAL EXAM GENERAL: The patient is awake, alert, and fully oriented, in no acute distress. HEAD: Normal with no signs of trauma. EYES: PERRL, extraocular movements intact, sclera anicteric, conjunctiva clear. ENT: Ears normal, nares patent, oropharynx clear without exudates, moist mucous membranes. NECK: Trachea midline, full range of motion, supple. LUNGS: Breath sounds equal, clear to auscultation bilaterally, no wheezes, no crackles, no accessory muscle use. HEART: Regular rate and rhythm, S1, S2 without murmur, rub or gallop. ABDOMEN: Soft, nontender, nondistended, normoactive bowel sounds, no guarding, no rebound, no hepatosplenomegaly, no masses. EXTREMITIES: 2+ pulses, warm, well-perfused, no edema. NEUROLOGICAL: Cranial nerves II through XII grossly intact. Normal speech, gait not observed. PSYCH: Normal mood, normal affect. SKIN: Warm, dry, normal turgor, no rashes or lesions noted. LABS Laboratory Results - last 24 hr 11/07/17 11/08/17 11/08/17 15:00 07:30 07:30 WBC 24.9 H 22.4 H RBC 3.10 L 2.91 L Hgb 9.7 L 9.1 L Hct 29.4 L 27.4 L MCV 94.7 94.1 MCH 31.4 31.2 MCHC 33.1 33.2 RDW 13.8 14.0 Plt Count 387 416 MPV 9.8 10.0 Neutrophils % 87.6 H Lymphocytes % 7.2 L Monocytes % 3.8 Eosinophils % 1.3 Basophils % 0.1 ESR > 100 H HOSPITAL COURSE: Date of Admission:10/30/17 Date of Discharge: 11/08/17 Admitting diagnosis: Severe sepsis due to R hip septic joint and MSSA bacteremia Surgery 11/05 right hip arthrotomy, I & D, revision THR 11/07 PICC line insertion RUE Pre hospital course This is a 77 y/o woman with a past medical history HTN. Who presents to the ED with weakness, fever, SOB, right groin/hip pain. Patient reports while decorating her [place] window on Saturday she "jumped down" from her step stool and is not sure if she twisted or pulled her groin muscle, Patient reports "feeling fine", her normal self, Saturday and Saturday besides the groin and hip pain. She reports this morning she felt too "weak" to get OOB. She reports sliding off her bed to crawl to her phone to call her son, to take her to the hospital for an evaluation. Patient denies cough, nasal congestion, dizziness, HOLLAND, CP, AP, N/ V/D, constipation, dysuria. Patient denies recent travel or sick contacts. She reports being vaccinated with the Influenza Vaccine this season. Subsequent hospital course Admitted to medicine. started on Vanco/zosyn, BCx and R hip fluid grew MSSA. abx switched to Cefazolin. Bacteremia persisted. Echo done and negative for IE. underwent I&D and R hip revision. clinically improved. d/c to [facility] with PICC line and IV abx therapy to complete 6 week course. will need periodic cbc, ESR, CRP, Cr, and LFT. expected to complete abx 12/16/17. Minutes to complete discharge: 40 Discharge Summary Reason For Visit: SEPSIS Current Active Problems DVT prophylaxis (Acute) HTN (hypertension) (Acute) Hypokalemia (Acute) Lactic acid acidosis (Acute) Leukocytosis (Acute) MRSA bacteremia (Acute) Right groin pain (Acute) Right hip pain (Acute) Sepsis (Acute) Septic joint (Acute) Thrombocytopenia (Acute) Weakness generalized (Acute) Condition: Guarded - Instructions Diet, Activity, Other Instructions: You were in the hospital due to a infection in your Right knee which caused a blood stream infection You are on antibiotics through the IV, you will need 5 more weeks of antibiotics. You will need weekly labs to monitor your progress. PLease have your CBC, CRP, ESR, kidney and liver function checked periodically. Your PICC line (IV site) can be removed once you complete therapy. Continue your medications as listed Continue physical therapy as tolerated. Follow up with your primary care doctor in 1 week FOllow up with orthopedic surgeon in 2 weeks Return to the ER for fever (temp >101) or chest pain Referrals: Latrell Torres MD [Primary Care Provider] - Naldo Currie PA [Physician Business Sales Consultant] - Disposition: [facility] - Home Medications Comprehensive Discharge Medication List: Ambulatory Orders Enalapril/Hydrochlorothiazide [Vaseretic 10-25 mg Tablet] 1 each PO DAILY This patient is new to me today: Yes Date on this admission: 11/08/17 Emergency Visit: Yes ED Registration Date: 10/30/17 Care time: The patient presented to the Emergency Department on the above date and was hospitalized for further evaluation of their emergent condition. Critical Care patient: No - Discharge Referral Referred to [facility].: No
[2017-11-08 12:31] LABS: C-REACTIVE PROTEIN 25.6 MG/DL (0.00-0.3)
--- NOTE | 2017-11-08 17:45 | PATH ---
Surgical Pathology Report Patient Name: COLLEEN JO Med. Rec. #: [id number] /Age/Gender: 1940 (Age: 77) / F Account: [id number] Location: [facility] MED-SURG Taken: 11/05/2017 Received: 11/05/2017 Reported: 11/08/2017 Physicians: Jaime Pacheco M.D. Specimen(s) Received A: RIGHT HIP SYNOVIUM B: RIGHT HIP HARDWARE Clinical History Right hip infection Final Diagnosis A. SYNOVIUM, RIGHT HIP, SYNOVECTOMY: SYNOVIUM AND SHOWING MARKED ACUTE NECROTIZING INFLAMMATION. B. HARDWARE, RIGHT HIP, REMOVAL: HARDWARE, DESCRIBED (GROSS EXAMINATION ONLY). Electronically Signed Cyndee Thompson M.D. Gross Description A. Received in formalin labeled "right hip synovium," is a 4.0 x 2.0 x 0.2 cm aggregate of pollock, irregular portions of fibrous tissue. Spice Cleaner sections are submitted in one cassette. B. Received fresh labeled "right hip hardware," are 2 fletcher metallic portions of hardware measuring 4.1 x 4.1 x 2.2 cm and 3.3 x 3.3 x 3.0 cm, consistent with hip hardware. No soft tissue is present. No sections are submitted, gross only. 11/06/201711/06/2017
[2017-11-09] MEDS: CEFAZOLIN 2 GM/D5W 2 GM/50 ML ML IVPB SCH ×3 (01:19→17:34)
[2017-11-09] MEDS: ASPIRIN 325 MG TABLET PO SCH (08:30)
[2017-11-09] MEDS: NYSTATIN/TRIAMCINOLONE TOPICAL CREAM 15 GM TUBE TP SCH ×2 (09:13→21:11)
[2017-11-09] MEDS: RANITIDINE HCL 150 MG TABLET (FP) PO SCH (09:13)
[2017-11-09] MEDS: ENALAPRIL MALEATE 10 MG TABLET (FP) PO SCH (09:13)
[2017-11-09] MEDS: ACETAMINOPHEN 325 MG TABLET (FP) PO PRN ×2 (09:14→19:41)
[2017-11-09] MEDS: LACTOBACILLUS ACIDOPHILUS 1 EACH TAB (FP) PO SCH (09:14)
--- NOTE | 2017-11-09 09:15 | PN ---
Progress Note, Physician History of Present Illness: Awake, alert. C/O R hip pain with weight bearing S/P I&D R hip POD #4. No c/o R hip pain at rest No c/o fever/ chills. WBC remains elevated Repeat BC (11/05, 11/07) no growth Operative c/s Staph aureus - Current Medication List Current Medications: Active Medications Acetaminophen (Tylenol -) 650 mg PO Q4H PRN PRN Reason: FEVER OR PAIN LEVEL 1-5 Last Admin: 11/08/17 10:48 Dose: 650 mg Aspirin (Asa -) 325 mg PO DAILY@0800 [facility] Last Admin: 11/08/17 10:49 Dose: 325 mg Enalapril Maleate (Vasotec -) 10 mg PO DAILY [facility] Last Admin: 11/08/17 10:50 Dose: 10 mg IV Flush (Picc Line Flush) 8 ml IVPUSH PRN PRN PRN Reason: Protocol Cefazolin Sodium/Dextrose (Ancef 2 Gm Premixed Ivpb -) 2 gm in 50 mls @ 100 mls /hr IVPB Q8H-IV DENY Last Admin: 11/09/17 01:19 Dose: 100 mls/hr Lactobacillus Acidophilus (Bacid -) 1 tab PO DAILY [facility] Last Admin: 11/08/17 10:49 Dose: 1 tab Nystatin/Triamcinolone Acetonide (Mycolog Ii Cream -) 1 applic TP BID [facility] Last Admin: 11/08/17 21:35 Dose: 1 applic Ondansetron HCl (Zofran Injection) 4 mg IVPUSH Q6H PRN PRN Reason: NAUSEA AND/OR VOMITING Oxycodone HCl (Roxicodone -) 5 mg PO Q4H PRN PRN Reason: PAIN LEVEL 6-10 Last Admin: 11/08/17 10:50 Dose: 5 mg Ranitidine HCl (Zantac -) 150 mg PO DAILY [facility] Last Admin: 11/08/17 10:51 Dose: 150 mg - Objective Vital Signs: Vital Signs Temperature 99.5 F 11/09/17 06:17 Pulse Rate 99 H 11/09/17 06:17 Respiratory Rate 21 11/09/17 06:17 Blood Pressure 146/50 11/09/17 06:17 O2 Sat by Pulse Oximetry (%) 97 11/09/17 08:57 Constitutional: Yes: No Distress Eyes: Yes: Conjunctiva Clear Cardiovascular: Yes: Regular Rate and Rhythm, S1, S2 Respiratory: Yes: CTA Bilaterally Gastrointestinal: Yes: Normal Bowel Sounds, Soft, Abdomen, Obese. No: Tenderness Extremities: Yes: Other (R hip tenderness to palp) Labs: CBC, BMP 11/08/17 07:30 11/07/17 07:30 INR, PTT INR 1.11 (0.82-1.09) D 11/04/17 07:30 Assessment/Plan MSSA bacteremia/ sepsis Infected R THR s/p I&D Leukocytosis Continue cefazolin 2gm IVPB q8h. PICC inserted for outpatient antibiotic therapy ( 6 weeks ) Check repeat WBC If persistant elevation, image R hip R/O collection
--- NOTE | 2017-11-09 10:23 | PN ---
Progress Note (short form) - Note Progress Note: states pain in hip is better, more comfortable in the chair today. denies CP, SOB, feveer, chills, N/V/C/D Current Medications Generic Name Dose Route Start Last Admin Trade Name Freq PRN Reason Stop Dose Admin Acetaminophen 650 mg 10/30/17 13:03 11/09/17 09:14 Tylenol - PO 650 mg Q4H PRN Administration FEVER OR PAIN LEVEL 1-5 Aspirin 325 mg 11/06/17 08:00 11/09/17 08:30 Asa - PO 325 mg DAILY@0800 DENY Administration Enalapril Maleate 10 mg 11/01/17 10:00 11/09/17 09:13 Vasotec - PO 10 mg DAILY DENY Administration IV Flush 8 ml 11/06/17 11:17 Picc Line Flush IVPUSH PRN PRN Protocol Cefazolin Sodium/Dextrose 2 gm in 50 mls @ 100 mls/hr 11/04/17 13:30 09:38 Ancef 2 Gm Premixed Ivpb - IVPB 100 mls/hr Q8H-IV DENY Administration Lactobacillus Acidophilus 1 tab 11/04/17 10:00 11/09/17 09:14 Bacid - PO 1 tab DAILY DENY Administration Nystatin/Triamcinolone Acetonide 1 applic 11/04/17 10:00 11/09/17 09:13 Mycolog Ii Cream - TP 1 applic BID DENY Administration Ondansetron HCl 4 mg 11/05/17 18:54 Zofran Injection IVPUSH Q6H PRN NAUSEA AND/OR VOMITING Oxycodone HCl 5 mg 11/06/17 08:35 11/08/17 10:50 Roxicodone - PO 5 mg Q4H PRN Administration PAIN LEVEL 6-10 Ranitidine HCl 150 mg 10/31/17 10:00 11/09/17 09:13 Zantac - PO 150 mg DAILY DENY Administration Last Vital Signs Temp Pulse Resp BP Pulse Ox 99.5 F 99 H 21 146/50 97 11/09/17 06:17 11/09/17 06:17 11/09/17 06:17 11/09/17 06:17 11/09/17 08:57 General NAD CV S1 S2 RRR no murmur/rub/gallop Lungs decreased breath sounds bases Abdomen soft NT/ND Extremities R hip tenderness no pedal edema +RUE PICC A/P 77yo F with PMH HTN presented to the ER wtih R groin pain and found to be septic due to MSSA bacteremia and septic R hip joint 1. Sepsis due to MSSA bacteremia and infected R hip- s/p I&D and THR revision . pain improved. encoraged to OOB to chair and ambulate. on cefipime, will need 6 weeks abx. persistent bacteremia due to septic hip. echo negative for endocarditis. leukocytosis trending down. check tomorrow. only walking 40 ft with PT. would benefit from MARSHA 2. Hypokalemia- resolved 3. HTN- controlled. cont acei 4. normocytic anemia- Hgb stable. no signs of bleeding. check iron studies. no indication for txn 5. DVT- full dose asa 6. has bed at [facility]. awaiting insurance authorization Visit type - Emergency Visit Emergency Visit: Yes ED Registration Date: 10/30/17 Care time: The patient presented to the Emergency Department on the above date and was hospitalized for further evaluation of their emergent condition. - New Patient This patient is new to me today: No - Critical Care Critical Care patient: No - Discharge Referral Referred to [facility] No
[2017-11-10] MEDS: CEFAZOLIN 2 GM/D5W 2 GM/50 ML ML IVPB SCH ×3 (01:03→17:34)
[2017-11-10] MEDS: ASPIRIN 325 MG TABLET PO SCH (07:18)
[2017-11-10] MEDS: ACETAMINOPHEN 325 MG TABLET (FP) PO PRN ×2 (07:33→13:48)
[2017-11-10] MEDS: RANITIDINE HCL 150 MG TABLET (FP) PO SCH (09:57)
[2017-11-10] MEDS: LACTOBACILLUS ACIDOPHILUS 1 EACH TAB (FP) PO SCH (09:57)
[2017-11-10] MEDS: ENALAPRIL MALEATE 10 MG TABLET (FP) PO SCH (09:57)
[2017-11-10] MEDS: NYSTATIN/TRIAMCINOLONE TOPICAL CREAM 15 GM TUBE TP SCH ×2 (09:57→22:29)
[2017-11-10 10:05] LABS: MCH 31.7 pg (25.7-33.7); MEAN CELL VOLUME 96.2 fl (80-96); MEAN PLT VOLUME 9.8 fl (7.5-11.1); PLATELET COUNT 491 K/MM3 (134-434); RDW 13.8 % (11.6-15.6); WHITE BLOOD COUNT 15.1 K/mm3 (4.0-10.8)
--- NOTE | 2017-11-10 10:05 | PN ---
Physical Exam: SUBJECTIVE: Patient seen and examined Pt c/o poor appetite, denies abdominal pain, N/V/D,concerns about lower ext swelling. OBJECTIVE: Vital Signs Period Temp Pulse Resp BP Sys/Singh Pulse Ox Last 24 Hr 98.4 F-99.3 F 90-96 18-19 122-128/51-58 99-100 GENERAL: The patient is awake, alert, and fully oriented, in no acute distress, OOB HEAD: Normal with no signs of trauma. EYES: PERRL, extraocular movements intact, sclera anicteric, conjunctiva clear. No ptosis. ENT: Ears normal, nares patent, oropharynx clear without exudates, moist mucous membranes. NECK: Trachea midline, full range of motion, supple. LUNGS: Breath sounds equal, clear to auscultation bilaterally, no wheezes, no crackles, no accessory muscle use. HEART: Regular rate and rhythm, S1, S2 without murmur, rub or gallop. ABDOMEN: Soft, nontender, nondistended, normoactive bowel sounds, no guarding, no rebound, no hepatosplenomegaly, no masses. EXTREMITIES: 2+ pulses, warm, well-perfused, non- pitting edema, Rt> LT, Rt hip dsg D&I. NEUROLOGICAL: Cranial nerves II through XII grossly intact. Normal speech, gait not observed. PSYCH: Normal mood, normal affect. SKIN: Warm, dry, normal turgor, no rashes or lesions noted, PICC line DEUCE Active Medications Generic Name Dose Route Start Last Admin Trade Name Freq PRN Reason Stop Dose Admin Acetaminophen 650 mg 10/30/17 13:03 11/10/17 07:33 Tylenol - PO 650 mg Q4H PRN Administration FEVER OR PAIN LEVEL 1-5 Aspirin 325 mg 11/06/17 08:00 11/10/17 07:18 Asa - PO 325 mg DAILY@0800 DENY Administration Enalapril Maleate 10 mg 11/01/17 10:00 11/10/17 09:57 Vasotec - PO 10 mg DAILY DENY Administration IV Flush 8 ml 11/06/17 11:17 Picc Line Flush IVPUSH PRN PRN Protocol Cefazolin Sodium/Dextrose 2 gm in 50 mls @ 100 mls/hr 11/04/17 13:30 12/24/ 17 09:57 Ancef 2 Gm Premixed Ivpb - IVPB 100 mls/hr Q8H-IV DENY Administration Lactobacillus Acidophilus 1 tab 11/04/17 10:00 11/10/17 09:57 Bacid - PO 1 tab DAILY DENY Administration Nystatin/Triamcinolone Acetonide 1 applic 11/04/17 10:00 11/10/17 09:57 Mycolog Ii Cream - TP 1 applic BID DENY Administration Ondansetron HCl 4 mg 11/05/17 18:54 Zofran Injection IVPUSH Q6H PRN NAUSEA AND/OR VOMITING Oxycodone HCl 5 mg 11/06/17 08:35 11/08/17 10:50 Roxicodone - PO 5 mg Q4H PRN Administration PAIN LEVEL 6-10 Ranitidine HCl 150 mg 10/31/17 10:00 11/10/17 09:57 Zantac - PO 150 mg DAILY DENY Administration ASSESSMENT/PLAN: This is a 77yo F with PMH HTN presented to the ER with R groin pain and found to be septic due to MSSA bacteremia and septic R hip joint. *Sepsis due to MSSA bacteremia and infected R hip - s/p I&D and THR revision 11/05.post-op day #5 - will cont on abx,will need 6 weeks abx - pt has PICC line - ID/ortho following -afebrile, wbc trending down, abnormal ESR/CRP -Echo negative for endocarditis. - PT - Rehab - Repeat BC preliminary negative - encouraged to OOB to chair and ambulate. - LLE swelling - ordered US to r/o DVT *Hypokalemia- resolved *HTN- BP controlled - will cont on Vasotec *Normocytic anemia- drop in H/H possibly due to sx vs dilutional - H/H 10.2/30.8 > 8.8/26.6 -no signs of bleeding - will check Fe studies, fecal occult -no indication for transfusion at this time - will f/u on CBC * Poor appetite - will add nutritional supplements -will monitor bang *DVT- full dose ASA Pt has bed at [facility]. awaiting insurance authorization Visit type - Emergency Visit Emergency Visit: Yes ED Registration Date: 10/30/17 Care time: The patient presented to the Emergency Department on the above date and was hospitalized for further evaluation of their emergent condition. - New Patient This patient is new to me today: Yes Date on this admission: 11/10/17 - Critical Care Critical Care patient: No
[2017-11-10 11:04] LABS: FERRITIN 675.268 ng/ml (6.9-282.5)
[2017-11-10] MEDS ORDERED: REFRIGERATED ANITBIOTICS ONE (11:47)
[2017-11-10 12:49] LABS: PLATELET COMMENTS SLT PLT CLUMPING; PLATELET ESTIMATE MOD INCREASED
--- NOTE | 2017-11-10 15:54 | PN ---
Progress Note (short form) - Note Progress Note: WBC= 15 WHICH IS MARKEDLY IMPROVED LESS PAIN AMBULATING CALF SOFT AND NT NVI DECREASED SWELLING IMP: IMPROVING WITHIV ABX S/P I&D PLAN: DC TO HOME ON IV ABX
--- NOTE | 2017-11-10 19:35 | PN ---
Progress Note, Physician History of Present Illness: Afebrile, s/p right hip I & D, revision THR pod #5 with improved hip discomfort and leukocytosis. Ambulating. - Current Medication List Current Medications: Active Medications Acetaminophen (Tylenol -) 650 mg PO Q4H PRN PRN Reason: FEVER OR PAIN LEVEL 1-5 Last Admin: 11/10/17 13:48 Dose: 650 mg Aspirin (Asa -) 325 mg PO DAILY@0800 [facility] Last Admin: 11/10/17 07:18 Dose: 325 mg Enalapril Maleate (Vasotec -) 10 mg PO DAILY [facility] Last Admin: 11/10/17 09:57 Dose: 10 mg IV Flush (Picc Line Flush) 8 ml IVPUSH PRN PRN PRN Reason: Protocol Cefazolin Sodium/Dextrose (Ancef 2 Gm Premixed Ivpb -) 2 gm in 50 mls @ 100 mls /hr IVPB Q8H-IV [facility] Last Admin: 11/10/17 17:34 Dose: 100 mls/hr Lactobacillus Acidophilus (Bacid -) 1 tab PO DAILY [facility] Last Admin: 11/10/17 09:57 Dose: 1 tab Nystatin/Triamcinolone Acetonide (Mycolog Ii Cream -) 1 applic TP BID [facility] Last Admin: 11/10/17 09:57 Dose: 1 applic Ondansetron HCl (Zofran Injection) 4 mg IVPUSH Q6H PRN PRN Reason: NAUSEA AND/OR VOMITING Last Admin: 11/10/17 17:34 Dose: 4 mg Oxycodone HCl (Roxicodone -) 5 mg PO Q4H PRN PRN Reason: PAIN LEVEL 6-10 Last Admin: 11/08/17 10:50 Dose: 5 mg Ranitidine HCl (Zantac -) 150 mg PO DAILY [facility] Last Admin: 11/10/17 09:57 Dose: 150 mg - Objective Vital Signs: Vital Signs Temperature 98.4 F 11/10/17 06:00 Pulse Rate 94 H 11/10/17 06:00 Respiratory Rate 19 11/10/17 06:00 Blood Pressure 127/51 11/10/17 06:00 O2 Sat by Pulse Oximetry (%) 99 11/10/17 08:43 Constitutional: Yes: No Distress, Calm Neck: Yes: Supple Cardiovascular: Yes: Regular Rate and Rhythm Respiratory: Yes: Regular, CTA Bilaterally Gastrointestinal: Yes: Normal Bowel Sounds, Soft Edema: No Labs: CBC, BMP 11/10/17 06:00 11/07/17 07:30 INR, PTT INR 1.11 (0.82-1.09) D 11/04/17 07:30 Problem List - Problems (1) HTN (hypertension) Code(s): I10 - ESSENTIAL (PRIMARY) HYPERTENSION Qualifiers: Hypertension type: essential hypertension Qualified Code(s): I10 - Essential (primary) hypertension (2) Leukocytosis Code(s): D72.829 - ELEVATED WHITE BLOOD CELL COUNT, UNSPECIFIED Qualifiers: Leukocytosis type: unspecified Qualified Code(s): D72.829 - Elevated white blood cell count, unspecified (3) Right hip pain Code(s): M25.551 - PAIN IN RIGHT HIP (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 Code(s): T84.59XA - INFECT/INFLM REACTION DUE TO OTH INTERNAL JOINT PROSTH, INIT ; Z96.649 - PRESENCE OF UNSPECIFIED ARTIFICIAL HIP JOINT Qualifiers: Encounter type: subsequent encounter Qualified Code(s): T84.59XD - Infection and inflammatory reaction due to other internal joint prosthesis, subsequent encounter; Z96.649 - Presence of unspecified artificial hip joint; Z96.649 - Presence of unspecified artificial hip joint (5) MSSA (methicillin susceptible Staphylococcus aureus) septicemia Code(s): A41.01 - SEPSIS DUE TO METHICILLIN SUSCEPTIBLE STAPHYLOCOCCUS AUREUS Assessment/Plan 11/04/2017 SOPHIA: Normal LV size and fxn, mild MR, TR, AR, no valvular vegetations or PILAR thrombus 1. MSSA bacteremia/sepsis, right septic THR s/p right hip I & D, revision THR pod #5 2. HTN/HCVD 3. Right hip pain s/p THR PLAN: 1. Ancef coverage with follow-up surveillance cultures NGTD, will need PICC for intermediate (6w) antibiotic therapy 2. SOPHIA negative for vegetations. 3. Continue Vasotec 10 mg qd 4. Analgesia as needed, DVT and GI prophylaxis
[2017-11-11] MEDS: ACETAMINOPHEN 325 MG TABLET (FP) PO PRN ×3 (00:50→23:57)
[2017-11-11] MEDS: CEFAZOLIN 2 GM/D5W 2 GM/50 ML ML IVPB SCH ×3 (04:34→20:42)
[2017-11-11 06:11] LABS: SERUM IRON 22 ug/dL (27-139); TOTAL IRON BINDING CAPACITY 142 ug/dL (250-450); UIBC 120 ug/dL (118-369)
[2017-11-11] MEDS: LACTOBACILLUS ACIDOPHILUS 1 EACH TAB (FP) PO SCH (09:29)
[2017-11-11] MEDS: RANITIDINE HCL 150 MG TABLET (FP) PO SCH (09:29)
[2017-11-11] MEDS: ENALAPRIL MALEATE 10 MG TABLET (FP) PO SCH (09:29)
[2017-11-11] MEDS: ASPIRIN 325 MG TABLET PO SCH (09:29)
[2017-11-11] MEDS: NYSTATIN/TRIAMCINOLONE TOPICAL CREAM 15 GM TUBE TP SCH ×2 (09:30→23:46)
[2017-11-11 10:03] LABS: BASO % 0.1 % (0-2.0); MCH 31.5 pg (25.7-33.7); MCHC 33.1 g/dl (32.0-36.0); MEAN CELL VOLUME 95.4 fl (80-96); MEAN PLT VOLUME 9.8 fl (7.5-11.1); NEUT % 76.4 % (42.8-82.8); PLATELET COUNT 571 K/MM3 (134-434); RDW 14.3 % (11.6-15.6)
[2017-11-11] MEDS: oxyCODONE HCL 5 MG TABLET PO PRN (10:30)
[2017-11-11 12:29] LABS: METAMYELOCYTE 1 % (0-2)
--- NOTE | 2017-11-11 12:30 | PN ---
Physical Exam: SUBJECTIVE: Patient seen and examined. Seen ambulating around the floor. OBJECTIVE: Vital Signs Period Temp Pulse Resp BP Sys/Singh Pulse Ox Last 24 Hr 97.6 F-99.1 F 86-95 18-19 124-126/45-53 96-99 GENERAL: The patient is awake, alert, and fully oriented, in no acute distress. LUNGS: Breath sounds equal, clear to auscultation bilaterally, no wheezes, no crackles, no accessory muscle use. HEART: Regular rate and rhythm, S1, S2 without murmur, rub or gallop. ABDOMEN: Soft, nontender, nondistended, normoactive bowel sounds, no guarding, no rebound. EXTREMITIES: 2+ pulses, warm, well-perfused, no edema. NEUROLOGICAL: Cranial nerves II through XII grossly intact. Normal speech, steady gait. Laboratory Results - last 24 hr 11/10/17 11/10/17 11/11/17 06:00 10:51 06:00 WBC 14.0 H RBC 2.81 L Hgb 8.9 L Hct 26.8 L MCV 95.4 MCH 31.5 MCHC 33.1 RDW 14.3 Plt Count 571 H MPV 9.8 Neutrophils % 76.4 Neutrophils % (Manual) 76.0 Band Neutrophils % 4.0 Lymphocytes % 15.4 D Lymphocytes % (Manual) 11.0 Monocytes % 6.1 Monocytes % (Manual) 5 Eosinophils % 2.0 Eosinophils % (Manual) 3.0 D Basophils % 0.1 Metamyelocytes 1 Platelet Estimate Mod increased Platelet Comment Slt plt clumping Iron 22 L TIBC 142 L Iron Saturation 15 Active Medications Generic Name Dose Route Start Last Admin Trade Name Freq PRN Reason Stop Dose Admin Acetaminophen 650 mg 10/30/17 13:03 11/11/17 00:50 Tylenol - PO 650 mg Q4H PRN Administration FEVER OR PAIN LEVEL 1-5 Aspirin 325 mg 11/06/17 08:00 11/11/17 09:29 Asa - PO 325 mg DAILY@0800 DENY Administration Enalapril Maleate 10 mg 11/01/17 10:00 11/11/17 09:29 Vasotec - PO 10 mg DAILY DENY Administration IV Flush 8 ml 11/06/17 11:17 Picc Line Flush IVPUSH PRN PRN Protocol Cefazolin Sodium/Dextrose 2 gm in 50 mls @ 100 mls/hr 11/04/17 13:30 04:34 Ancef 2 Gm Premixed Ivpb - IVPB 100 mls/hr Q8H-IV DENY Administration Lactobacillus Acidophilus 1 tab 11/04/17 10:00 11/11/17 09:29 Bacid - PO 1 tab DAILY DENY Administration Nystatin/Triamcinolone Acetonide 1 applic 11/04/17 10:00 11/11/17 09:30 Mycolog Ii Cream - TP 1 applic BID DENY Administration Ondansetron HCl 4 mg 11/05/17 18:54 11/10/17 17:34 Zofran Injection IVPUSH 4 mg Q6H PRN Administration NAUSEA AND/OR VOMITING Oxycodone HCl 5 mg 11/06/17 08:35 11/08/17 10:50 Roxicodone - PO 5 mg Q4H PRN Administration PAIN LEVEL 6-10 Ranitidine HCl 150 mg 10/31/17 10:00 11/11/17 09:29 Zantac - PO 150 mg DAILY DENY Administration Microbiology 11/07/17 15:46 Blood - Peripheral Venous Blood Culture - Preliminary NO GROWTH OBTAINED AFTER 96 HOURS, INCUBATION TO CONTINUE FOR 1 DAYS. 11/07/17 15:46 Blood - Peripheral Venous Blood Culture - Preliminary NO GROWTH OBTAINED AFTER 96 HOURS, INCUBATION TO CONTINUE FOR 1 DAYS. 11/05/17 09:30 Blood - Peripheral Venous Blood Culture - Final NO GROWTH AFTER 5 DAYS INCUBATION 11/05/17 09:30 Blood - Peripheral Venous Blood Culture - Final NO GROWTH AFTER 5 DAYS INCUBATION 11/05/17 17:25 Hip - Right Gram Stain - Final 11/05/17 17:25 Hip - Right Wound Culture - Final 11/05/17 17:25 Hip - Right Gram Stain - Final 11/05/17 17:25 Hip - Right Wound Culture - Final Staphylococcus Aureus 10/30/17 09:05 Blood - Peripheral Venous Blood Culture - Final Staphylococcus Aureus 11/02/17 06:00 Blood - Peripheral Venous Blood Culture - Final Staphylococcus Aureus 11/02/17 06:00 Blood - Peripheral Venous Blood Culture - Final Staphylococcus Aureus 10/31/17 09:10 Blood - Peripheral Venous Blood Culture - Final Presumptive Mssa (Pbp2a Neg) 10/31/17 09:30 Blood - Peripheral Venous Blood Culture - Final Staphylococcus Aureus 10/30/17 09:10 Blood - Peripheral Venous Blood Culture - Final Staphylococcus Aureus 10/30/17 11:17 Urine - Urine Clean Catch Urine Culture - Final NO GROWTH OBTAINED 10/30/17 Unknown Nasopharyngeal Swab Influenza Types A,B Antigen (SARAH) - Final 10/30/17 Unknown Nasopharyngeal Swab - Final ASSESSMENT/PLAN 77 year-old female with a PMH significant for HTN, admitted for septic right hip joint and MSSA bacteremia. Septic right hip joint, s/p I&D and THR revision 11/05/17 MSSA bacteremia --afebrile, WBC 14.0 --PICC line in situ --continue cefazolin -- will need 6 weeks antibiotic therapy Hypertension --BP well-controlled --continue enalapril FEN Fluids: PO intake adeqauate Electrolytes: replete as indicated Nutrition: low sodium DVT prophylaxis: lovenox, oob, ambulation Dispo: continues to require inpatient care. Full code,. Visit type - Emergency Visit Emergency Visit: Yes ED Registration Date: 10/30/17 Care time: The patient presented to the Emergency Department on the above date and was hospitalized for further evaluation of their emergent condition. - New Patient This patient is new to me today: Yes Date on this admission: 11/11/17 - Critical Care Critical Care patient: No
[2017-11-11 15:26] LABS: EOS # 0.3 #; LYMPH # 2.2 # (8-40); MONO # 0.9 #; NEUT # 10.6 # (42.8-82.8)
[2017-11-11] MEDS ORDERED: PT OWN MED DRAWER 7, Y5N ONE (21:53)
[2017-11-11] MEDS: ENOXAPARIN NA (PORCINE) 40 MG/0.4 ML DISP.SYRIN SQ SCH (21:54)
[2017-11-12] MEDS: CEFAZOLIN 2 GM/D5W 2 GM/50 ML ML IVPB SCH ×2 (02:17→09:50)
[2017-11-12 06:13] VITALS: BP 131/51; PULSE 79; TEMP 98.9
[2017-11-12] MEDS: ENOXAPARIN NA (PORCINE) 40 MG/0.4 ML DISP.SYRIN SQ SCH (09:49)
[2017-11-12] MEDS: ENALAPRIL MALEATE 10 MG TABLET (FP) PO SCH (09:50)
[2017-11-12] MEDS: LACTOBACILLUS ACIDOPHILUS 1 EACH TAB (FP) PO SCH (09:50)
[2017-11-12] MEDS: ASPIRIN 325 MG TABLET PO SCH (09:50)
[2017-11-12] MEDS: ACETAMINOPHEN 325 MG TABLET (FP) PO PRN (09:51)
[2017-11-12] MEDS: RANITIDINE HCL 150 MG TABLET (FP) PO SCH (09:51)
[2017-11-12] MEDS: NYSTATIN/TRIAMCINOLONE TOPICAL CREAM 15 GM TUBE TP SCH (09:52)
--- NOTE | 2017-11-12 09:57 | PN ---
Progress Note, Physician Chief Complaint: Events noted Not in distress Post hip surgery and await transfer to rehab History of Present Illness: Patient was seen and examined. Awake and alert. Chart was reviewed Denies chest pain, SOB or palpitations - Current Medication List Current Medications: Active Medications Acetaminophen (Tylenol -) 650 mg PO Q4H PRN PRN Reason: FEVER OR PAIN LEVEL 1-5 Last Admin: 11/12/17 09:51 Dose: 650 mg Aspirin (Asa -) 325 mg PO DAILY@0800 [facility] Last Admin: 11/12/17 09:50 Dose: 325 mg Enalapril Maleate (Vasotec -) 10 mg PO DAILY [facility] Last Admin: 11/12/17 09:50 Dose: 10 mg Enoxaparin Sodium (Lovenox -) 40 mg SQ DAILY [facility] Last Admin: 11/12/17 09:49 Dose: 40 mg IV Flush (Picc Line Flush) 8 ml IVPUSH PRN PRN PRN Reason: Protocol Cefazolin Sodium/Dextrose (Ancef 2 Gm Premixed Ivpb -) 2 gm in 50 mls @ 100 mls /hr IVPB Q8H-IV [facility] Last Admin: 11/12/17 09:50 Dose: 100 mls/hr Lactobacillus Acidophilus (Bacid -) 1 tab PO DAILY [facility] Last Admin: 11/12/17 09:50 Dose: 1 tab Nystatin/Triamcinolone Acetonide (Mycolog Ii Cream -) 1 applic TP BID [facility] Last Admin: 11/12/17 09:52 Dose: 1 applic Ranitidine HCl (Zantac -) 150 mg PO DAILY [facility] Last Admin: 11/12/17 09:51 Dose: 150 mg - Objective Vital Signs: Vital Signs Temperature 98.9 F 11/12/17 06:00 Pulse Rate 79 11/12/17 06:00 Respiratory Rate 18 11/12/17 06:00 Blood Pressure 131/51 11/12/17 06:00 O2 Sat by Pulse Oximetry (%) 97 11/12/17 06:00 Eyes: Yes: PERRL HENT: Yes: Atraumatic Neck: Yes: Supple Cardiovascular: Yes: Regular Rate and Rhythm, S1, S2 Respiratory: Yes: CTA Bilaterally Gastrointestinal: Yes: Normal Bowel Sounds, Soft. No: Tenderness Edema: No Labs: CBC, BMP 11/11/17 06:00 Problem List - Problems (1) HTN (hypertension) Code(s): I10 - ESSENTIAL (PRIMARY) HYPERTENSION Qualifiers: Hypertension type: essential hypertension Qualified Code(s): I10 - Essential (primary) hypertension (2) Lactic acid acidosis Code(s): E87.2 - ACIDOSIS (3) Leukocytosis Code(s): D72.829 - ELEVATED WHITE BLOOD CELL COUNT, UNSPECIFIED Qualifiers: Leukocytosis type: unspecified Qualified Code(s): D72.829 - Elevated white blood cell count, unspecified (4) Right hip pain Code(s): M25.551 - PAIN IN RIGHT HIP (5) Sepsis Code(s): A41.9 - SEPSIS, UNSPECIFIED ORGANISM Qualifiers: Sepsis type: sepsis due to unspecified organism Qualified Code(s): A41.9 - Sepsis, unspecified organism (6) Thrombocytopenia Code(s): D69.6 - THROMBOCYTOPENIA, UNSPECIFIED (7) Weakness generalized Code(s): R53.1 - WEAKNESS Assessment/Plan 1. Fever/leukocytosis/thrombocytopenia referable to Staph bacteremia/sepsis 2. HTN/HCVD 3. Right hip pain s/p THR - post revision and I & D PLAN: 1. Antibiotic coverage as per ID - post PICC line 2. Await transfer to SNF/rehab 3. Continue Vasotec 10 mg qd 4. DVT prophylaxis Further plans are to follow Ministerio Pride MD
--- NOTE | 2017-11-12 10:10 | PN ---
Progress Note (short form) - Note Progress Note: WBC STILL RENDING DOWN. NOW AT 14. PATIENT IS MARKEDLY IMPROVED CLINICALLY WITH DECREASED SWELLING AND HER INCISION IS CLEAN AND DRY. SHE IS WBAT WITH MINIMAL DISCOMFORT. CALF SOFT AND NT. PLAN: DC TO SNF ON [facility] IV ABX ONCE APPROVAL GRANTED BY INSURANCE COMPANY
--- NOTE | 2017-11-12 12:07 | PN ---
Physical Exam: SUBJECTIVE: Patient seen and examined, ambulatory throughout nursing station with a walker patient reports minimal pain upon movement, denies any chest pain , or shortness of breath OBJECTIVE: 77 year-old female with a PMH significant for HTN, admitted for septic right hip joint and MSSA bacteremia. Vital Signs Period Temp Pulse Resp BP Sys/Singh Pulse Ox Last 24 Hr 98.3 F-99.3 F 79-87 16-18 113-131/51-67 97-100 GENERAL: The patient is awake, alert, and fully oriented, in no acute distress. HEAD: Normal with no signs of trauma. EYES: PERRL, extraocular movements intact, sclera anicteric, conjunctiva clear. No ptosis. ENT: Ears normal, nares patent, oropharynx clear without exudates, moist mucous membranes. NECK: Trachea midline, full range of motion, supple. LUNGS: Breath sounds equal, clear to auscultation bilaterally, no wheezes, no crackles, no accessory muscle use. HEART: Regular rate and rhythm, S1, S2 without murmur, rub or gallop. ABDOMEN: Soft, nontender, nondistended, normoactive bowel sounds, no guarding, no rebound, no hepatosplenomegaly, no masses. EXTREMITIES: 2+ pulses, warm, well-perfused, no edema. RIGHT LOWER EXTREMITY: aguacel dressing removed by Dr Bhatia, staple line clean dry and intact, no erythema noted NEUROLOGICAL: Cranial nerves II through XII grossly intact. Normal speech, gait not observed. PSYCH: Normal mood, normal affect. SKIN: Warm, dry, normal turgor, no rashes or lesions noted Laboratory Results - last 24 hr 11/10/17 06:00 Metamyelocytes 1 CBC WBC 14.0 K/mm3 (4.0-10.8) H 11/11/17 06:00 RBC 2.81 M/mm3 (3.60-5.2) L 11/11/17 06:00 Hgb 8.9 GM/dl (10.7-15.3) L 11/11/17 06:00 Hct 26.8 % (32.4-45.2) L 11/11/17 06:00 MCV 95.4 fl (80-96) 11/11/17 06:00 MCH 31.5 pg (25.7-33.7) 11/11/17 06:00 MCHC 33.1 g/dl (32.0-36.0) 11/11/17 06:00 RDW 14.3 % (11.6-15.6) 11/11/17 06:00 Plt Count 571 K/MM3 (134-434) H 11/11/17 06:00 MPV 9.8 fl (7.5-11.1) 11/11/17 06:00 Neutrophils % 76.4 % (42.8-82.8) 11/11/17 06:00 Neutrophils % (Manual) 76.0 % (42.8-82.8) 11/10/17 06:00 Band Neutrophils % 4.0 % (0-10) 11/10/17 06:00 Lymphocytes % 15.4 % (8-40) D 11/11/17 06:00 Lymphocytes % (Manual) 11.0 % (8-40) 11/10/17 06:00 Monocytes % 6.1 % (3.8-10.2) 11/11/17 06:00 Monocytes % (Manual) 5 % (3.8-10.2) 11/10/17 06:00 Eosinophils % 2.0 % (0-4.5) 11/11/17 06:00 Eosinophils % (Manual) 3.0 % (0-4.5) D 11/10/17 06:00 Basophils % 0.1 % (0-2.0) 11/11/17 06:00 Basophils % (Manual) 2.0 % (0-2.0) 10/30/17 09:10 Metamyelocytes 1 % (0-2) 11/10/17 06:00 Platelet Estimate Mod increased 11/10/17 06:00 Platelet Comment Slt plt clumping 11/10/17 06:00 ESR > 100 mm/hr (0-30) H 11/08/17 07:30 CMP Sodium 137 mmol/L (136-145) 11/07/17 07:30 Potassium 4.5 mmol/L (3.5-5.1) 11/07/17 07:30 Chloride 106 mmol/L (98-107) 11/07/17 07:30 Carbon Dioxide 24 mmol/L (22-28) 11/07/17 07:30 Anion Gap 7 (8-16) L 11/07/17 07:30 BUN 15 mg/dl (7-18) 11/07/17 07:30 Creatinine 0.4 mg/dl (0.6-1.3) L D 11/07/17 07:30 Creat Clearance w eGFR > 60 (>60) 11/05/17 07:30 Random Glucose 112 mg/dl (74-106) H 11/07/17 07:30 Lactic Acid 0.8 mmol/L (0.4-2.0) 10/30/17 11:32 Calcium 7.5 mg/dl (8.4-10.2) L 11/07/17 07:30 Phosphorus 3.5 mg/dl (2.5-4.6) D 11/07/17 07:30 Magnesium 2.0 mg/dL (1.8-2.4) 11/07/17 07:30 Iron 22 ug/dL (27-139) L 11/10/17 10:51 TIBC 142 ug/dL (250-450) L 11/10/17 10:51 Iron Saturation 15 % (15-55) 11/10/17 10:51 Ferritin 675.268 ng/ml (6.9-282.5) H 11/08/17 07:30 Total Bilirubin 1.1 mg/dl (0.2-1.0) H D 11/05/17 07:30 AST 47 U/L (10-42) H D 11/05/17 07:30 ALT 47 U/L (10-40) H D 11/05/17 07:30 Alkaline Phosphatase 117 U/L (32-92) H 11/05/17 07:30 Creatine Kinase 179 IU/L (26-192) 11/07/17 07:30 Creatine Kinase Index 2.1 % (0.0-5.0) 11/07/17 07:30 CK-MB (CK-2) 3.8 ng/mL (0.3-4.0) 11/07/17 07:30 Troponin I 0.03 ng/ml (0.03-0.50) 11/07/17 07:30 C-Reactive Protein 25.6 MG/DL (0.00-0.3) H D 11/08/17 07:30 Total Protein 4.6 g/dl (6.4-8.3) L 11/05/17 07:30 Albumin 1.5 g/dl (3.5-5.0) L 11/05/17 07:30 Active Medications Generic Name Dose Route Start Last Admin Trade Name Freq PRN Reason Stop Dose Admin Acetaminophen 650 mg 10/30/17 13:03 11/12/17 09:51 Tylenol - PO 650 mg Q4H PRN Administration FEVER OR PAIN LEVEL 1-5 Aspirin 325 mg 11/06/17 08:00 11/12/17 09:50 Asa - PO 325 mg DAILY@0800 DENY Administration Enalapril Maleate 10 mg 11/01/17 10:00 11/12/17 09:50 Vasotec - PO 10 mg DAILY DENY Administration Enoxaparin Sodium 40 mg 11/11/17 21:00 11/12/17 09:49 Lovenox - SQ 40 mg DAILY DENY Administration IV Flush 8 ml 11/06/17 11:17 Picc Line Flush IVPUSH PRN PRN Protocol Cefazolin Sodium/Dextrose 2 gm in 50 mls @ 100 mls/hr 11/11/17 20:30 09:50 Ancef 2 Gm Premixed Ivpb - IVPB 100 mls/hr Q8H-IV DENY Administration Lactobacillus Acidophilus 1 tab 11/04/17 10:00 11/12/17 09:50 Bacid - PO 1 tab DAILY DENY Administration Nystatin/Triamcinolone Acetonide 1 applic 11/04/17 10:00 11/12/17 09:52 Mycolog Ii Cream - TP 1 applic BID DENY Administration Ranitidine HCl 150 mg 10/31/17 10:00 11/12/17 09:51 Zantac - PO 150 mg DAILY DENY Administration Microbiology 11/07/17 15:46 Blood - Peripheral Venous Blood Culture - Preliminary NO GROWTH OBTAINED AFTER 96 HOURS, INCUBATION TO CONTINUE FOR 1 DAYS. 11/07/17 15:46 Blood - Peripheral Venous Blood Culture - Preliminary NO GROWTH OBTAINED AFTER 96 HOURS, INCUBATION TO CONTINUE FOR 1 DAYS. 11/05/17 09:30 Blood - Peripheral Venous Blood Culture - Final NO GROWTH AFTER 5 DAYS INCUBATION 11/05/17 09:30 Blood - Peripheral Venous Blood Culture - Final NO GROWTH AFTER 5 DAYS INCUBATION 11/05/17 17:25 Hip - Right Gram Stain - Final 11/05/17 17:25 Hip - Right Wound Culture - Final 11/05/17 17:25 Hip - Right Gram Stain - Final 11/05/17 17:25 Hip - Right Wound Culture - Final Staphylococcus Aureus 10/30/17 09:05 Blood - Peripheral Venous Blood Culture - Final Staphylococcus Aureus 11/02/17 06:00 Blood - Peripheral Venous Blood Culture - Final Staphylococcus Aureus 11/02/17 06:00 Blood - Peripheral Venous Blood Culture - Final Staphylococcus Aureus 10/31/17 09:10 Blood - Peripheral Venous Blood Culture - Final Presumptive Mssa (Pbp2a Neg) 10/31/17 09:30 Blood - Peripheral Venous Blood Culture - Final Staphylococcus Aureus 10/30/17 09:10 Blood - Peripheral Venous Blood Culture - Final Staphylococcus Aureus 10/30/17 11:17 Urine - Urine Clean Catch Urine Culture - Final NO GROWTH OBTAINED 10/30/17 Unknown Nasopharyngeal Swab Influenza Types A,B Antigen (SARAH) - Final 10/30/17 Unknown Nasopharyngeal Swab - Final ASSESSMENT/PLAN: 1) septic right hip joint, s/p I&D and THR revision 11/05/17 MSSA bacteremia --afebrile, WBC 14.0 --PICC line in situ --continue cefazolin, as per ID, will need 6 weeks antibiotic therapy 2) Hypertension --BP well-controlled --continue enalapril FEN Fluids: PO intake adeqauate Electrolytes: replete as indicated Nutrition: low sodium DVT prophylaxis: lovenox, oob, ambulation Dispo: continues to require inpatient care. Full code, transfer to [facility] for short term rehab Visit type - Emergency Visit Emergency Visit: Yes ED Registration Date: 10/30/17 Care time: The patient presented to the Emergency Department on the above date and was hospitalized for further evaluation of their emergent condition. - New Patient This patient is new to me today: No - Critical Care Critical Care patient: No - Discharge Referral Referred to [facility] No
[2017-11-12] MEDS ORDERED: CEFAZOLIN 2 GM in DEXTROSE 5%-WATER - 100 ML IVPB SCH (20:15)
== END 2017-11-12 12:30 | DRG 466 ==
LOC: FER 08:56 → FM/S 15:11 → JSAMEDAYSX 11-04 09:43 → FM/S 11-04 12:37
PROVIDERS: ADMIT Internal Medicine; ATTEND Nurse Practitioner Family
PROC: 0SP90JZ Removal of Synthetic Substitute from Right Hip Joint, Open Approach (ICD-10-PCS; 2017-11-05)
PROC: B246ZZ4 Ultrasonography of Right and Left Heart, Transesophageal (ICD-10-PCS; 2017-11-05)
PROC: 0SR902Z Replacement of Right Hip Joint with Metal on Polyethylene Synthetic Substitute, Open Approach (ICD-10-PCS; principal; 2017-11-05 17:18)
PROC: 02HV33Z Insertion of Infusion Device into Superior Vena Cava, Percutaneous Approach (ICD-10-PCS; 2017-11-07)
DX: T84.51XA Infection and inflammatory reaction due to internal right hip prosthesis, initial encounter (principal); A41.01 Sepsis due to Methicillin susceptible Staphylococcus aureus; E87.2 Acidosis; J98.11 Atelectasis; Z96.643 Presence of artificial hip joint, bilateral; D72.829 Elevated white blood cell count, unspecified; D64.9 Anemia, unspecified; R53.1 Weakness; R10.31 Right lower quadrant pain; M25.551 Pain in right hip; E87.6 Hypokalemia; D69.6 Thrombocytopenia, unspecified; R21 Rash and other nonspecific skin eruption; I11.9 Hypertensive heart disease without heart failure; Y83.8 Other surgical procedures as the cause of abnormal reaction of the patient, or of later complication, without mention of misadventure at the time of the procedure; Y92.89 Other specified places as the place of occurrence of the external cause
CPT/HCPCS: 36415; 36569; 71010-TC; 72192-TC; 73502-TC-RT; 73523-TC; 73552-TC-RT; 73700-TC-RT; 77001-TC; 80048; 80053; 81003; 81015; 82550; 82553; 82728; 83540; 83550; 83605; 83735; 84100; 84484; 85025; 85027; 85610; 85651; 86140; 87040; 87070; 87086; 87186; 87205; 87804; 88300-TC; 88304-TC; 93005; 93010; 93306-TC; 93312; 93325; 94010; 94760; 97116-GP; 97162-GP; 99285-25; C1751; G0480; J1644

== ENCOUNTER 2019-01-16 09:00 | Emergency (ER) | payer OTHER ==
[2019-01-16 09:50] VITALS: BP 149/76; PULSE 82; TEMP 97.5; BMI 25.6
--- NOTE | 2019-01-16 09:59 | PDOC ---
History of Present Illness - General History Source: Patient Exam Limitations: No Limitations - History of Present Illness Initial Comments: 01/16/19 13:07 The patient is a 78 year old female, with a significant past medical history of HTN, who presents to the emergency department s/p mechanical fall with a laceration to the forehead and abrasions to the right elbow and knee. As per patient, she tripped and fell onto carpeted floor and was able to ambulate after the fall. She denies any LOC. She denies recent fevers, chills, headache, lightheadedness , or dizziness. She denies recent nausea, vomit, diarrhea or constipation. She denies recent dysuria, frequency, urgency or hematuria. She denies recent chest pain or shortness of breath. Allergies: NKDA Primary Care Physician: Latrell Espinoza <Mary Lou Holbrook - Last Filed: 01/16/19 13:06> <Laurence Gómez - Last Filed: 01/16/19 13:46> - General Chief Complaint: Injury Stated Complaint: FALL Time Seen by Provider: 01/16/19 09:46 Past History <Mary Lou Holbrook - Last Filed: 01/16/19 13:06> - Past Medical History Anemia: No Asthma: No Cancer: No Cardiac Disorders: No CVA: No COPD: No CHF: No Dementia: No Diabetes: No GI Disorders: No Disorders: No HTN: Yes Hypercholesterolemia: No Liver Disease: No Seizures: No Thyroid Disease: No - Surgical History Abdominal Surgery: No Appendectomy: No Cardiac Surgery: No Cholecystectomy: Yes Lung Surgery: No Neurologic Surgery: No Orthopedic Surgery: Yes (Bilateral hips replaced) - Suicide/Smoking/Psychosocial Hx Smoking History: Never smoked Have you smoked in the past 12 months: No Information on smoking cessation initiated: No Hx Alcohol Use: No Drug/Substance Use Hx: No Substance Use Type: None Hx Substance Use Treatment: No <Laurence Gómez - Last Filed: 01/16/19 13:46> - Past Medical History Allergies/Adverse Reactions: Allergies Allergy/AdvReac Type Severity Reaction Status Date / Time No Known Allergies Allergy Verified 10/30/17 08:59 Home Medications: Ambulatory Orders Acetaminophen [Tylenol .Regular Strength -] 650 mg PO Q4H PRN tablet 11/08/17 Aspirin [ASA -] 325 mg PO DAILY@0800 tablet 11/08/17 Cefazolin Sodium/Dextrose,Iso [Cefazolin-Dextrose 2 gm/100 ml] 2 gm IV Q8H #111 [email or web address] 11/08/17 Enalapril Maleate [Vasotec -] 10 mg PO DAILY tablet 11/08/17 Lactobacillus Acidophilus [Bacid -] 1 tab PO DAILY tab 11/08/17 Nystatin/Triamcinolone Top Cr [Mycolog II -] 1 applic TP BID applic 11/08/17 Picc Line Flush [Picc Line Flush -] 8 ml IVPUSH PRN PRN ml 11/08/17 oxyCODONE HCL [Roxicodone -] 5 mg PO Q4H PRN tablet MDD 30 11/08/17 Review of Systems - Review of Systems Able to Perform ROS?: Yes Comments:: 01/16/19 13:07 GENERAL/CONSTITUTIONAL: No fever or chills. No weakness. HEAD, EYES, EARS, NOSE AND THROAT: No change in vision. No ear pain or discharge. No sore throat. CARDIOVASCULAR: No chest pain or shortness of breath. RESPIRATORY: No cough, wheezing, or hemoptysis. GASTROINTESTINAL: No nausea, vomiting, diarrhea or constipation. GENITOURINARY: No dysuria, frequency, or change in urination. MUSCULOSKELETAL: No joint or muscle swelling or pain. No neck or back pain. SKIN: +Laceration to the forehead. +Abrasion to the right elbow and knee. NEUROLOGIC: No headache, vertigo, loss of consciousness, or change in strength/ sensation. ENDOCRINE: No increased thirst. No abnormal weight change. HEMATOLOGIC/LYMPHATIC: No anemia, easy bleeding, or history of blood clots. ALLERGIC/IMMUNOLOGIC: No hives or skin allergy. All Other Systems: Reviewed and Negative <Mary Lou Holbrook - Last Filed: 01/16/19 13:06> *Physical Exam - Vital Signs Last Vital Signs Temp Pulse Resp BP Pulse Ox 97.5 F L 82 16 149/76 100 01/16/19 09:00 01/16/19 09:00 01/16/19 09:00 01/16/19 09:00 01/16/19 09:00 - Physical Exam Comments: 01/16/19 13:07 GENERAL: Awake, alert, and fully oriented, in no acute distress HEAD: +6cm curvilinear laceration to the right scalp. EYES: PERRLA, EOMI, sclera anicteric, conjunctiva clear ENT: Auricles normal inspection, hearing grossly normal, nares patent, oropharynx clear without exudates. Moist mucosa NECK: Normal ROM, supple, no lymphadenopathy, JVD, or masses LUNGS: Breath sounds equal, clear to auscultation bilaterally. No wheezes, and no crackles HEART: Regular rate and rhythm, normal S1 and S2, no murmurs, rubs or gallops ABDOMEN: Soft, nontender, normoactive bowel sounds. No guarding, no rebound. No masses EXTREMITIES: Small abrasion to the right elbow and suprapatellar. Normal range of motion, no edema. No clubbing or cyanosis. NEUROLOGICAL: Cranial nerves II through XII grossly intact. Normal speech, normal gait <Mary Lou Holbrook - Last Filed: 01/16/19 13:06> - Vital Signs Last Vital Signs Temp Pulse Resp BP Pulse Ox 97.5 F L 82 16 149/76 100 01/16/19 09:00 01/16/19 09:00 01/16/19 09:00 01/16/19 09:00 01/16/19 09:00 <Laurence Gómez - Last Filed: 01/16/19 13:46> Moderate Sedation - Procedure Monitoring Vital Signs: Procedure Monitoring Vital Signs Temperature 97.5 F L 01/16/19 09:00 Pulse Rate 82 01/16/19 09:00 Respiratory Rate 16 01/16/19 09:00 Blood Pressure 149/76 01/16/19 09:00 O2 Sat by Pulse Oximetry (%) 100 01/16/19 09:00 <Mary Lou Holbrook - Last Filed: 01/16/19 13:06> - Procedure Monitoring Vital Signs: Procedure Monitoring Vital Signs Temperature 97.5 F L 01/16/19 09:00 Pulse Rate 82 01/16/19 09:00 Respiratory Rate 16 01/16/19 09:00 Blood Pressure 149/76 01/16/19 09:00 O2 Sat by Pulse Oximetry (%) 100 01/16/19 09:00 <Laurence Gómez - Last Filed: 01/16/19 13:46> ED Treatment Course - LABORATORY CBC & Chemistry Diagram: 01/16/19 11:07 01/16/19 11:07 - ADDITIONAL ORDERS Additional order review: Laboratory Results 01/16/19 01/16/19 11:07 11:07 PT with INR 11.10 INR 0.94 PTT (Actin FS) 29.6 Sodium 138 Potassium 4.6 Chloride 103 Carbon Dioxide 28 Anion Gap 8 BUN 15 Creatinine 0.7 Creat Clearance w eGFR > 60 Random Glucose 102 Calcium 8.9 Total Bilirubin 0.8 AST 42 H ALT 24 Alkaline Phosphatase 105 Total Protein 7.5 Albumin 3.7 01/16/19 11:07 RBC 4.20 MCV 93.9 MCHC 35.0 RDW 13.2 MPV 9.2 Neutrophils % 80.2 Lymphocytes % 12.5 D Monocytes % 5.9 Eosinophils % 1.0 Basophils % 0.4 - Medications Given in the ED: ED Medications Discontinued Medications Generic Name Dose Route Start Last Admin Trade Name Anna PRN Reason Stop Dose Admin Acetaminophen 650 mg 01/16/19 12:02 01/16/19 12:19 Tylenol - PO 01/16/19 12:03 650 mg ONCE ONE Administration Diphtheria/Tetanus/Acell Pertussis 0.5 ml 01/16/19 10:44 01/16/19 11:16 Boostrix - IM 01/16/19 10:45 0.5 ml .ONCE ONE Administration <Mary Lou Holbrook - Last Filed: 01/16/19 13:06> - LABORATORY CBC & Chemistry Diagram: 01/16/19 11:07 01/16/19 11:07 <Laurence Gómez - Last Filed: 01/16/19 13:46> Medical Decision Making - Medical Decision Making 01/16/19 13:37 Pt presents to the ED complaining of laceration to the head after mechanical trip and fall. Denies LOC, chest or abdominal pain. CT head and C spine performed to rule out intracranial or cervical spinal injury and are negative. Given tetanus in the ED. Will discharge home with instructions to follow up in the ED in 10 days for suture removal and to follow up with her PMD. <Laurence Gómez - Last Filed: 01/16/19 13:46> *DC/Admit/Observation/Transfer - Attestations Scribe Attestion: 01/16/19 13:09 Documentation prepared by Mary Lou Holbrook, acting as medical review coordinator for Laurence Gómez MD. <Mary Lou Holbrook - Last Filed: 01/16/19 13:06> - Discharge Dispostion Decision to Admit order: No <Laurence Gómez - Last Filed: 01/16/19 13:46> Diagnosis at time of Disposition: Laceration of scalp Qualifiers: Encounter type: initial encounter Qualified Code(s): S01.01XA - Laceration without foreign body of scalp, initial encounter Closed head injury Qualifiers: Encounter type: initial encounter Qualified Code(s): S09.90XA - Unspecified injury of head, initial encounter - Discharge Dispostion Disposition: HOME Condition at time of disposition: Good - Patient Instructions Printed Discharge Instructions: DI for Closed Head Injury, DI for Laceration Repair -- [place] Additional Instructions: You came to the ED for a wound on your scalp after hitting your head. We fixed your wound with laura We did a cat scan of your brain and spine in your neck which showed no injuries. You may have headaches, mild nausea or dizziness for the next few days. Return immediately to the ED for severe headache, severe nausea and vomiting, confusion, other new or worsening symptoms. Also return to the ED for bleeding from the wound, redness or swelling around the wound, pus coming from the wound or fever. REturn to fast track in 10 days for staple removal.
[2019-01-16] MEDS ORDERED: DIPHTH,PERTUSS(ACELL),TET 0.5 ML DISP.SYRIN IM ONE ×2 (10:44→11:11)
[2019-01-16 11:23] LABS: BASO % 0.4 % (0-2.0); HEMATOCRIT 39.4 % (32.4-45.2); HEMOGLOBIN 13.8 GM/dL (10.7-15.3); LYMPH % 12.5 % (8-40); MCH 32.9 pg (25.7-33.7); MEAN CELL VOLUME 93.9 fl (80-96); MEAN PLT VOLUME 9.2 fl (7.5-11.1); MONO % 5.9 % (3.8-10.2); NEUT % 80.2 % (42.8-82.8); PLATELET COUNT 210 K/MM3 (134-434); RDW 13.2 % (11.6-15.6); WHITE BLOOD COUNT 11.7 K/mm3 (4.0-10.0)
[2019-01-16 11:41] LABS: INR 0.94 (0.83-1.09); PROTHROMBIN TIME (PATIENT) 11.1 SEC (9.7-13.0)
[2019-01-16 11:44] LABS: ACTIVATED PTT 29.6 SECONDS (25.2-36.5)
[2019-01-16] MEDS ORDERED: ACETAMINOPHEN 325 MG TABLET (FP) PO ONE (12:02)
[2019-01-16 12:03] LABS: ALBUMIN 3.7 g/dl (3.4-5.0); ALK PHOS 105 U/L (45-117); ANION GAP 8 MMOL/L (8-16); BILIRUBIN,TOTAL 0.8 mg/dL (0.2-1); BLOOD UREA NITROGEN 15 mg/dL (7-18); CALCIUM 8.9 mg/dL (8.5-10.1); CHLORIDE 103 mmol/L (98-107); CO2 28 mmol/L (21-32); CREATININE 0.7 mg/dL (0.55-1.3); GLUCOSE,RANDOM 102 mg/dL (74-106); POTASSIUM 4.6 mmol/L (3.5-5.1); SGOT/AST 42 U/L (15-37); SGPT/ALT 24 U/L (13-61); SODIUM 138 mmol/L (136-145); TOT PROT 7.5 g/dl (6.4-8.2)
[2019-01-16] MEDS ORDERED: ACETAMINOPHEN 325 MG TABLET (FP) ONE (12:18)
--- NOTE | 2019-01-16 13:21 | PDOC ---
*Physical Exam - Vital Signs Last Vital Signs Temp Pulse Resp BP Pulse Ox 97.5 F L 82 16 149/76 100 01/16/19 09:00 01/16/19 09:00 01/16/19 09:00 01/16/19 09:00 01/16/19 09:00 ED Treatment Course - LABORATORY CBC & Chemistry Diagram: 01/16/19 11:07 01/16/19 11:07 - ADDITIONAL ORDERS Additional order review: Laboratory Results 01/16/19 01/16/19 11:07 11:07 PT with INR 11.10 INR 0.94 PTT (Actin FS) 29.6 Sodium 138 Potassium 4.6 Chloride 103 Carbon Dioxide 28 Anion Gap 8 BUN 15 Creatinine 0.7 Creat Clearance w eGFR > 60 Random Glucose 102 Calcium 8.9 Total Bilirubin 0.8 AST 42 H ALT 24 Alkaline Phosphatase 105 Total Protein 7.5 Albumin 3.7 01/16/19 11:07 RBC 4.20 MCV 93.9 MCHC 35.0 RDW 13.2 MPV 9.2 Neutrophils % 80.2 Lymphocytes % 12.5 D Monocytes % 5.9 Eosinophils % 1.0 Basophils % 0.4 - Medications Given in the ED: ED Medications Discontinued Medications Generic Name Dose Route Start Last Admin Trade Name Freq PRN Reason Stop Dose Admin Acetaminophen 650 mg 01/16/19 12:02 01/16/19 12:19 Tylenol - PO 01/16/19 12:03 650 mg ONCE ONE Administration Diphtheria/Tetanus/Acell Pertussis 0.5 ml 01/16/19 10:44 01/16/19 11:16 Boostrix - IM 01/16/19 10:45 0.5 ml .ONCE ONE Administration *DC/Admit/Observation/Transfer Diagnosis at time of Disposition: Laceration of scalp Qualifiers: Encounter type: initial encounter Qualified Code(s): S01.01XA - Laceration without foreign body of scalp, initial encounter Closed head injury Qualifiers: Encounter type: initial encounter Qualified Code(s): S09.90XA - Unspecified injury of head, initial encounter - Discharge Dispostion Disposition: HOME Condition at time of disposition: Good - Referrals - Patient Instructions Printed Discharge Instructions: DI for Laceration Repair -- [place], DI for Closed Head Injury Additional Instructions: You came to the ED for a wound on your scalp after hitting your head. We fixed your wound with marcello We did a cat scan of your brain and spine in your neck which showed no injuries. You may have headaches, mild nausea or dizziness for the next few days. Return immediately to the ED for severe headache, severe nausea and vomiting, confusion, other new or worsening symptoms. Also return to the ED for bleeding from the wound, redness or swelling around the wound, pus coming from the wound or fever. REturn to fast track in 10 days for staple removal. - Post Discharge Activity Laceration/Wound Repair - Laceration/Wound Repair Right Head Wound Length (cm): 14cm Depth, Shape: flap Irrigated w/ Saline: Yes Anesthesia: 2% Lidocaine Wound Repaired With: [place] (19)
== END 2019-01-16 14:04 | disposition home or self-care (01) ==
LOC: JER 09:00
PROC: 3E0234Z Introduction of Serum, Toxoid and Vaccine into Muscle, Percutaneous Approach (ICD-10-PCS; principal; 2019-01-16)
PROC: 0HQ0XZZ Repair Scalp Skin, External Approach (ICD-10-PCS; 2019-01-16)
DX: S01.81XA Laceration without foreign body of other part of head, initial encounter (principal); W18.39XA Other fall on same level, initial encounter; Y93.89 Activity, other specified; Y92.89 Other specified places as the place of occurrence of the external cause; I10 Essential (primary) hypertension; S01.01XA Laceration without foreign body of scalp, initial encounter; S09.90XA Unspecified injury of head, initial encounter; Z96.643 Presence of artificial hip joint, bilateral
CPT/HCPCS: 12002; 36415; 70450-TC; 71045-TC-FY; 72125-TC; 80053; 85025; 85610; 85730; 90471; 90715; 99283-25

== ENCOUNTER 2019-02-01 11:25 | Emergency (ER) | payer OTHER ==
[2019-02-01 11:32] VITALS: TEMP 98.7; BMI 25.6
--- NOTE | 2019-02-01 11:44 | PDOC ---
History of Present Illness - General Chief Complaint: Rectal Bleed Stated Complaint: RECTAL BLEED Time Seen by Provider: 02/01/19 11:30 History Source: Patient Exam Limitations: No Limitations - History of Present Illness Initial Comments: 02/01/19 12:20 Ms Fang 78 year old female, with a significant past medical history of HTN, who presents to the emergency department presenting with bleeding. she notes she has had some bleeding (unclear to patient if vaginal or rectal, but believes to be vaginal) x 3-4 days intermittently since she started taking Aleve for her joint aches. About 3 days ago, she admits to taking Aleve PM ( NSAID with Benadryl component) Q4H instead of Q12 hr x 1 day, taking more than she should; she has not taken any additional Aleve PM x 2 days. She would find herself staining sanitary pads and underwear over the past 3-4 days. - no trauma. no intercourse. she recently sustained a mechanical fall while at home on 01/16/19, when she tripped over rug on the way to bathroom, +hit to head; she had her right scalp laceration repaired, CT head and C spine negative for injuries, +right shoulder pain. She has been taking OTC tylenol/aleve with some relief and improvement in her shoulder. She denies recent fevers, chills, headache, lightheadedness, or dizziness. She denies recent nausea, vomit, diarrhea or constipation, bloody stools. She denies recent dysuria, frequency, urgency or hematuria. She denies recent chest pain or shortness of breath. Allergies: [facility] Primary Care Physician: Latrell Espinoza 02/01/19 13:38 02/01/19 15:43 Past History - Past Medical History Allergies/Adverse Reactions: Allergies Allergy/AdvReac Type Severity Reaction Status Date / Time No Known Allergies Allergy Verified 02/01/19 11:28 Home Medications: Ambulatory Orders Enalapril Maleate [Vasotec -] 10 mg PO DAILY tablet 11/08/17 Anemia: No Asthma: No Cancer: No Cardiac Disorders: No CVA: No COPD: No CHF: No Dementia: No Diabetes: No GI Disorders: No Disorders: No HTN: Yes Hypercholesterolemia: No Liver Disease: No Seizures: No Thyroid Disease: No - Surgical History Abdominal Surgery: No Appendectomy: No Cardiac Surgery: No Cholecystectomy: Yes Lung Surgery: No Neurologic Surgery: No Orthopedic Surgery: Yes (Bilateral hips replaced) - Suicide/Smoking/Psychosocial Hx Smoking History: Never smoked Have you smoked in the past 12 months: No Information on smoking cessation initiated: No Hx Alcohol Use: No Drug/Substance Use Hx: No Substance Use Type: None Hx Substance Use Treatment: No Review of Systems - Review of Systems Able to Perform ROS?: Yes Comments:: 02/01/19 12:20 ROS Constitutional: no fevers or chills. HEENT: no headache or dizziness. No visual/hearing disturbances. CVS: no cp or syncope. Resp: no sob. No cough. Gastrointestinal: no abdominal pain, nausea or vomiting. no gross bloody stools. Genitourinary: no urinary sx, hematuria. No dysuria. ?vaginal bleeding MUSCULOSKELETAL: No joint pain and swelling. No neck or back pain. SKIN: no redness or skin changes, no discharge, no rash. No wounds. No pallor Hematologic: no easy bruising/bleeding. NEUROLOGIC: No headache, dizziness, LOC or altered mental status. No weakness, numbness or tingling. Allergic/Immunologic: no allergies All other systems reviewed and negative, or as documented in HPI. 02/01/19 13:38 *Physical Exam - Vital Signs Last Vital Signs Temp Pulse Resp BP Pulse Ox 98.7 F 87 18 197/95 H 99 02/01/19 11:25 02/01/19 11:25 02/01/19 11:25 02/01/19 11:25 02/01/19 11:25 - Physical Exam Comments: 02/01/19 12:20 PE: General: Well appearing, awake and alert, NAD. HEENT: NCAT, +right scalp curvilinear scar with scabbing s/p staple removal. PERRL, EOMI, clear conjunctiva, anicteric, moist mucus membranes, clear oropharynx, no oral lesions.. Neck: neck supple, FROM Resp: CTAB, normal and even respirations, no respiratory distress CVS: RRR, no murmurs, 2+ peripheral pulses throughout, no peripheral edema Abdomen: soft, NTND, no peritoneal signs. Abdominal surgical scars present : normal external genitalia, no vaginal bleeding at the external vault, unable to advance speculum due to discomfort. Rectal: +brown stool, external dried blood along perineum, no clear source of bleeding. No friable masses. Back: nontender, normal inspection and ROM MSK: no edema, JIMÉNEZ x4, ROM intact. No clubbing or cyanosis. normal bulk and tone. Neuro: alert Skin: warm and well perfused, cap refill <2 sec, normal color 02/01/19 13:38 02/01/19 14:05 Moderate Sedation - Procedure Monitoring Vital Signs: Procedure Monitoring Vital Signs Temperature 98.7 F 02/01/19 11:25 Pulse Rate 87 02/01/19 11:25 Respiratory Rate 18 02/01/19 11:25 Blood Pressure 197/95 H 02/01/19 11:25 O2 Sat by Pulse Oximetry (%) 99 02/01/19 11:25 Heart Score/ECG Review #1 ECG reviewed & interpreted by me at: 12:25 General ECG Interpretation: Sinus Rhythm, Normal Rate, No acute ischemic changes 02/01/19 13:56 EKG normal sinus rhythm at 79 bpm, no interval abnormalities, normal QTC interval and UT interval. narrow QRS, ST and T wave segments and morphology normal. ED Treatment Course - LABORATORY CBC & Chemistry Diagram: 02/01/19 12:37 02/01/19 12:37 Medical Decision Making - Medical Decision Making 02/01/19 12:21 hpi as documented VS reviewed wnl. full exam done, and Rectal, most likely source of bleeding is GI, with most of dried blood around the rectal orifice/vault. no VB noted actively. bleeding controlled. DDx. GIB, LGIB vs UGIB, gastritis, nsaid induced GIB, mediction side effect, electrolyte/metabolic derangements, anemia, PUD, KATHRYN, coagulopathy. vaginal bleeding/mass. endometrial bleeding/mass, uterine fibroid. pt states it is most likely vaginal bleeding, with pads witnessed here in garbage. no saturation of pads. labs and lytes wnl. coags normal. H/H wnl. guaiac negative, no gross blood or abnormalities on rectal exam. UA_blood with some s/s infection such as leuk esterase and blood, either contamination from VB that pt has been experiencing. however, no clinical sx of infection, defer testing and check urine cultures. EKG normal sinus rhythm at 79 bpm, no interval abnormalities, normal QTC interval and UT interval. narrow QRS, ST and T wave segments and morphology normal. on clinical reeval in the ED, no events. no further episodes of bleeding. also > 2 days ago she last took the NSAID. unlikely as etiology of her bleeding. no e/o GIB - making normal BM and negative examination. no interval abnormalities from benadryl effect. also no tyl/ASA use, no utility of testing. TVUS: normal, normal endometrium, no pathology identified. avoid nsaids in the future due to side effect profile Pt informed of my clinical impression, treatment recommendations and disposition plan. All questions answered to patient's satisfaction and expressed understanding and comfort with this. Reasons for returning to the ED sooner discussed with the patient otherwise, follow up with primary care physician. At the time of discharge, the patient is alert, clinically improved, tolerating po and verbalizes understanding of instructions. Patient does not suffer from an acute life-threatening medical condition at this time she is safe for outpatient follow-up. 02/01/19 15:41 02/01/19 16:32 *DC/Admit/Observation/Transfer Diagnosis at time of Disposition: Bleeding, Medication side effect - Discharge Dispostion Disposition: HOME Condition at time of disposition: Stable Decision to Admit order: No - Referrals Referrals: Latrell Torres MD [Primary Care Provider] - - Patient Instructions Printed Discharge Instructions: DI for Vaginal Bleeding, DI for Abnormal Uterine Bleeding Additional Instructions: 1) Please follow-up with your primary care doctor in the next 1-2 days. Please call tomorrow for an appointment. If you cannot follow-up with your primary care doctor please return to the ED for any urgent issues. 2) You were given a copy of the tests performed today. Please bring the results with you and review them with your primary care doctor. Your laboratory / imaging results were normal, your stool was negative for blood. your ultrasound was negative for uterine or endometrial pathology. you should follow up with your nurse aide for your bleeding. 3) If you have any worsening of symptoms or any other concerns please return to the ED immediately. Return if worsening symptoms including fevers, headache, vomiting, visual or hearing disturbances, abdominal pain, chest pain, shortness of breath, syncope, dehydration, inability to take things by mouth/vomiting, altered mental status, or worsening concerning symptoms. 4) Please continue taking your home medications as directed. . side effects may include upset stomach, abdominal pain, vomiting, or diarrhea. do not drink alcohol with your medications. avoid taking motrin, aleve or advil or other antinflammatories in the future as this may cause bleeding. Stay well hydrated and rest adequately. - Post Discharge Activity
[2019-02-01 12:56] LABS: URINE APPEARANCE SL CLOUDY
[2019-02-01 12:57] LABS: PH,URINE 6.5 (4.5-8); URINE BILIRUBIN NEGATIVE (NEGATIVE); URINE GLUCOSE (UA) NEGATIVE (NEGATIVE); URINE KETONE NEGATIVE (NEGATIVE); URINE PROTEIN NEGATIVE (NEGATIVE); URINE UROBILINOGEN 0.2 (0.2-1.0)
[2019-02-01 12:58] LABS: URINE NITRITE NEGATIVE (NEGATIVE)
[2019-02-01 13:09] LABS: INR 1.05 (0.82-1.09); PROTHROMBIN TIME (PATIENT) 11.7 SEC (10.2-13.0)
[2019-02-01 13:15] LABS: ALBUMIN 4.1 g/dl (3.4-5.0); ALK PHOS 100 U/L (45-117); ANION GAP 10 MMOL/L (8-16); BILIRUBIN,TOTAL 0.6 mg/dl (0.2-1); BLOOD UREA NITROGEN 14 mg/dl (7-18); CALCIUM 9.1 mg/dl (8.5-10); CHLORIDE 101 mmol/L (98-107); CO2 25 mmol/L (21-32); CREATININE 0.7 mg/dl (0.55-1.3); GLUCOSE,RANDOM 107 mg/dl (74-106); POTASSIUM 3.7 mmol/L (3.5-5.1); SGOT/AST 26 U/L (15-37); SGPT/ALT 21 U/L (13-61); SODIUM 136 mmol/L (136-145); TOT PROT 7.5 g/dl (6.4-8.2)
[2019-02-01 13:32] LABS: BASO % 0.3 % (0-2.0); EOS % 1.9 % (0-4.5); HEMATOCRIT 38.5 % (32.4-45.2); HEMOGLOBIN 12.6 GM/dl (10.7-15.3); LYMPH % 17.8 % (8-40); MCH 31.4 pg (25.7-33.7); MCHC 32.8 g/dl (32.0-36.0); MEAN CELL VOLUME 95.7 fl (80-96); MEAN PLT VOLUME 9.1 fl (7.5-11.1); MONO % 5.1 % (3.8-10.2); NEUT % 74.9 % (42.8-82.8); PLATELET COUNT 263 K/MM3 (134-434); RBC 4.03 M/mm3 (3.60-5.2); RDW 12.4 % (11.6-15.6); WHITE BLOOD COUNT 11.8 K/mm3 (4.0-10.8)
[2019-02-01 13:59] VITALS: BP 172/78; PULSE 82
[2019-02-01 14:09] LABS: URINE LEUK ESTERASE MODERATE (NEGATIVE)
[2019-02-01] MEDS ORDERED: SODIUM CHLORIDE 0.9% 500 ML INFUS.BAG IV ONE (15:00)
--- NOTE | 2019-02-01 15:35 | EKG ---
Test Reason : Blood Pressure : / mmHG Vent. Rate : 079 BPM Atrial Rate : 079 BPM P-R Int : 166 ms QRS Dur : 072 ms QT Int : 392 ms P-R-T Axes : 021 018 041 degrees QTc Int : 449 ms NORMAL SINUS RHYTHM NORMAL ECG WHEN COMPARED WITH ECG OF 06-NOV-2017 21:53, NO SIGNIFICANT CHANGE WAS FOUND Confirmed by MD TRENT, PERLA ([id number]) on 02/01/2019 3:35:05 PM Referred By: ANDREZ Confirmed By:PERLA NEWMAN MD
[2019-02-01 19:36] LABS: URINE COLOR DK YELLOW
== END 2019-02-01 16:45 | disposition home or self-care (01) ==
LOC: FER 11:25
PROC: 3E0337Z Introduction of Electrolytic and Water Balance Substance into Peripheral Vein, Percutaneous Approach (ICD-10-PCS; principal; 2019-02-01)
DX: K62.5 Hemorrhage of anus and rectum (principal); T39.315A Adverse effect of propionic acid derivatives, initial encounter; Y92.89 Other specified places as the place of occurrence of the external cause; I10 Essential (primary) hypertension; Z96.643 Presence of artificial hip joint, bilateral
CPT/HCPCS: 36415; 76856-TC; 80053; 81003; 82272; 85025; 85610; 85730; 86850; 86900; 86901; 93005; 99284-25

== ENCOUNTER 2019-03-30 19:02 | Emergency (ER) | payer OTHER ==
--- NOTE | 2019-03-30 19:11 | PDOC ---
Documentation entered by Pepe Madison SCRIBE, acting as scribe for Marisol Petersen MD. Marisol Petersen MD: This documentation has been prepared by the [place] mckinney Daniel, SCRIBE, under my direction and personally reviewed by me in its entirety. I confirm that the documentation accurately reflects all work, treatment, procedures, and medical decision making performed by me. History of Present Illness - General Chief Complaint: Injury Stated Complaint: CUT LEFT INDEX FINGER Time Seen by Provider: 03/30/19 19:04 History Source: Patient Exam Limitations: No Limitations - History of Present Illness Initial Comments: 03/30/19 19:08 The patient is a 79 year old female with a past medical history of HTN here today for evaluation of left index finger superficial skin avulsion, a/w mild numbness and bleeding. The patient reports that she was removing the aluminum lid of a can and cut her right index finger. She reports that she tried to stop the bleeding but was unable to despite compression. tdap up to date. no f/c, weakness. +mild numbness to her fingers, but that is baseline no drainage. +bleeding to finger and some pain. Allergies: NKA PCP: Latrell Torres 03/30/19 19:16 03/30/19 19:32 Past History - Past Medical History Allergies/Adverse Reactions: Allergies Allergy/AdvReac Type Severity Reaction Status Date / Time No Known Allergies Allergy Verified 03/30/19 19:04 Home Medications: Ambulatory Orders Enalapril Maleate [Vasotec -] 10 mg PO DAILY tablet 11/08/17 Anemia: No Asthma: No Cancer: No Cardiac Disorders: No CVA: No COPD: No CHF: No Dementia: No Diabetes: No GI Disorders: No Disorders: No HTN: Yes Hypercholesterolemia: No Liver Disease: No Seizures: No Thyroid Disease: No - Surgical History Abdominal Surgery: No Appendectomy: No Cardiac Surgery: No Cholecystectomy: Yes Lung Surgery: No Neurologic Surgery: No Orthopedic Surgery: Yes (Bilateral hips replaced) - Suicide/Smoking/Psychosocial Hx Smoking History: Never smoked Have you smoked in the past 12 months: No Hx Alcohol Use: No Drug/Substance Use Hx: No Substance Use Type: None Hx Substance Use Treatment: No Review of Systems - Review of Systems Able to Perform ROS?: Yes Comments:: 03/30/19 19:08 Constitutional: no fevers or chills. MUSCULOSKELETAL: No joint pain and swelling. No muscle pain/arthralgias. Back: no back pain SKIN: +left index finger laceration. no redness or skin changes, no discharge, no rash. Hematologic: no easy bruising/bleeding. NEUROLOGIC: No weakness, numbness or tingling. Allergic/Immunologic: no allergies All other systems reviewed and negative, or as documented in HPI. *Physical Exam - Physical Exam Comments: 03/30/19 19:08 General: NAD, well appearing Vascular: 2+ radialis pulses symmetric and equal. Neuro: distal ophthalmologist retina specialist strength 5/5. sensation grossly intact in median/radial/ ulnar distribution. MSK: soft compartments, Cap refill <2 sec. 2+ radialis pulses bilaterally and symmetric. FDP/FDS intact. no joint tenderness. FROM. Skin: +Laceration to left distal tip of index finger with superficial skin avulsion. color normal color, warm and well perfused. Medical Decision Making - Medical Decision Making 03/30/19 19:15 wound care, superficial fingertip laceration/avulsion of skin, surgicel topically, hemostasis achieved wound care instructions, monitor for infection, pain controlled, otc meds as needed f/u PCP as needed. *DC/Admit/Observation/Transfer Diagnosis at time of Disposition: Avulsion of skin of finger Qualifiers: Encounter type: initial encounter Qualified Code(s): S61.209A - Unspecified open wound of unspecified finger without damage to nail, initial encounter - Discharge Dispostion Disposition: HOME Condition at time of disposition: Good Decision to Admit order: No - Referrals Referrals: Latrell Torres MD [Staff Physician] - - Patient Instructions Printed Discharge Instructions: DI for Abrasion Additional Instructions: keep the surgicel in place, it will scab over and fall off by itself in 1 week keep area clean and dry. monitor for infection, weakness, numbness or tinglin. follow up with your primary doctor as needed. - Post Discharge Activity
[2019-03-30 19:21] VITALS: BP 128/78; PULSE 78; TEMP 98.3; BMI 25.6
== END 2019-03-30 19:31 | disposition home or self-care (01) ==
LOC: FER 19:02
PROC: 0HQGXZZ Repair Left Hand Skin, External Approach (ICD-10-PCS; principal; 2019-03-30)
DX: S61.211A Laceration without foreign body of left index finger without damage to nail, initial encounter (principal); W26.8XXA Contact with other sharp object(s), not elsewhere classified, initial encounter; Y93.89 Activity, other specified; Y92.89 Other specified places as the place of occurrence of the external cause; I10 Essential (primary) hypertension; Z96.643 Presence of artificial hip joint, bilateral
CPT/HCPCS: 12001-25; 99281-25